=== PATIENT | male | born 1940 | race Caucasian/White ===

== ENCOUNTER 2020-01-02 18:28 | Emergency (ER) | payer MEDICARE, SELFPAY ==
[2020-01-02 18:38] VITALS: BP 149/85; PULSE 69; RESP 16; O2SAT 98
--- NOTE | 2020-01-02 19:27 | ED.URI ---
HPI - URI/Sore Throat General Chief Complaint: Upper Respiratory Infection Stated Complaint: Congestion Source: patient and family Mode of arrival: ambulatory Limitations: no limitations History of Present Illness HPI Narrative: Patient is an 79-year-old male who presents complaining of sinus pressure, cough, congestion x1+ weeks. Patient reports similar symptoms in the past month which have resolved, symptoms returned this past week worsening over the past few days. He denies chest pain. He denies shortness of breath. He denies headache or all other complaints. MD elicited complaint: cough, nasal congestion and sinus pain Related Data Home Medications Medication Instructions Recorded Confirmed aspirin 81 mg PO DAILY 11/05/19 11/05/19 glucosamine-chondroitin 30 ml PO DAILY 11/05/19 11/05/19 lisinopril 10 mg PO DAILY 11/05/19 11/05/19 metformin 500 mg PO DAILY 11/05/19 11/05/19 metoprolol tartrate 25 mg PO DAILY 11/05/19 11/05/19 rivaroxaban [Xarelto] 20 mg PO DAILY 11/05/19 11/05/19 finasteride 5 mg tablet 5 mg PO DAILY 11/16/19 11/16/19 tamsulosin mg PO 01/02/20 Allergies Allergy/AdvReac Type Severity Reaction Status Date / Time morphine Allergy Intermediate hallucinati Verified 11/16/19 15:14 ons Review of Systems Review of Systems: Narrative: CONSTITUTIONAL: Denies fever, chills, or sweats. EYES: Denies visual changes, redness, or discharge. ENT: Reports congestion and sinus pressure. CARDIOVASCULAR: Denies chest pain, palpitations, or edema. RESPIRATORY: Reports cough, denies dyspnea. GASTROINTESTINAL: Denies abdominal pain, nausea, vomiting, or diarrhea. GENITOURINARY: Denies dysuria or hematuria. SKIN: Denies rash or itching. MUSCULOSKELETAL: Denies back pain, joint pain, or myalgia. NEUROLOGIC: Denies headache, numbness, dizziness, or weakness. PSYCHIATRIC: Denies anxiety or depression. [facility] Family History Family History Mother Family history of glaucoma Family history of elevated blood lipids Hypertension Carcinoma of colon Sibling Hypertension Family history of elevated blood lipids Father Family history of elevated blood lipids Hypertension Other Family history of cardiovascular disease Family history of malignant neoplasm Social History Social History Smoking status: Former smoker Smoking end date: 10/27/07 Alcohol intake: current Exam Narrative: Exam Narrative: GENERAL: Well-appearing, well-nourished, and in no acute distress. HEAD: Normocephalic, atraumatic. EYES: EOMI. No redness or drainage. Conjunctiva are normal. ENT: Mucous membranes pink and moist. Nares clear. No rhinorrhea. TMs normal bilaterally. Throat normal. Uvula midline. Maxillary sinus tenderness with palpation NECK: AROM. Supple. No lymphadenopathy. CHEST: No respiratory distress. Clear to auscultation. HEART: Regular rate and rhythm. No murmur appreciated. Normal peripheral pulses. GI: Soft, nontender without rebound, or guarding. No distention. Bowel sounds normal in all quadrants. MUSCULOSKELETAL: No bony tenderness. EXTREMITIES: Normal range of motion. No edema. SKIN: Warm, dry, no rash. NEURO: No focal deficits. Alert and oriented x3. Gait steady. PSYCH: Normal affect. No signs of depression or anxiety. Course Vital Signs Vital signs: Vital Signs Pulse Rate 69 01/02/20 18:38 Respiratory Rate 16 01/02/20 18:38 Blood Pressure 149/85 H 01/02/20 18:38 Pulse Oximetry 98 01/02/20 18:38 Pulse Rate 69 01/02/20 18:38 Respiratory Rate 16 01/02/20 18:38 Blood Pressure 149/85 H 01/02/20 18:38 Pulse Oximetry 98 01/02/20 18:38 MDM - URI/Sore Throat MDM Narrative Medical decision making narrative: Patient most likely has sinusitis. Patient to be treated with antibiotics at this time due to length of illness as well as return of illness. Lauren
== END 2020-01-02 19:52 | disposition home or self-care (01) ==
PROVIDERS: Emergency Provider Nurse Practitioner; PCP Family Medicine
DX: J01.90 Acute sinusitis, unspecified (principal); Z87.891 Personal history of nicotine dependence
CPT/HCPCS: 99213; G0463

== ENCOUNTER 2020-02-16 16:39 | Outpatient (CLI) | payer MEDICARE, SELFPAY | END 2020-02-16 16:40 | disposition home or self-care (01) | PROVIDERS: PCP Family Medicine; Visit Provider Nurse Practitioner Adult Health | DX: R31.0 Gross hematuria (principal) | CPT/HCPCS: 87086 ==

== ENCOUNTER 2020-04-04 09:19 | Outpatient (CLI) | payer MEDICARE, SELFPAY ==
[2020-04-04 09:58] LABS: Basophils Percent Auto 0.5 % (0.2-1.2); Eosinophils Absolute Auto 0.1 K/mm3 (0-0.3); Eosinophils Percent Auto 2.3 % (0-4.4); Hematocrit 49.1 % (42.0-52.0); Hemoglobin 16.5 g/dL (14.0-18.0); Immature Granulocyte Absolute 0.01 K/mm3 (0.00-0.031); Immature Granulocyte Percent A 0.2 % (0-0.5); Lymphocytes Absolute Auto 1.15 K/mm3 (0.9-3.2); Lymphocytes Percent Auto 20.5 % (18.3-44.2); Mean Corpuscular HGB Conc 33.6 g/dl (32-36); Mean Corpuscular Volume 92.3 fl (80-100); Mean Platelet Volume 11.8 fl (7.4-10.4); Monocytes Absolute Auto 0.4 K/mm3 (0.1-0.6); Monocytes Percent Auto 7.8 % (2.6-8.5); Neutrophils Absolute Auto 3.9 K/mm3 (1.3-6.7); Neutrophils Percent Auto 68.7 % (45.5-73.1); Platelet Count Result 179 k/mm3 (150-375); Red Blood Count 5.32 M/mm3 (4.6-6.20); Red Cell Distribution Width 12.8 % (11.5-14.5); White Blood Count 5.6 K/mm3 (4.5-10.0)
[2020-04-04 10:09] LABS: Hemoglobin A1C 6.7 % (<5.7)
[2020-04-04 10:10] LABS: Alanine Aminotransferase 23 U/L (4-50); Alkaline Phosphatase 50 U/L (38-126); Aspartate Amino Transferase 28 U/L (17-59); Bilirubin,Total 1.5 mg/dL (0.2-1.3); Blood Urea Nitrogen 17 mg/dL (9-20); Calcium 8.5 mg/dL (8.4-10.2); Carbon Dioxide 28 mmol/L (22-30); Chloride 104 mmol/L (98-107); Cholesterol 103 mg/dL (0-200); Estimated Glomerular Filt Rate > 60; Glucose 120 mg/dL (75-110); HDL Direct 32 mg/dL; Potassium 3.9 mmol/L (3.4-5.0); Sodium 139 mmol/L (137-145); Triglycerides 83 mg/dL (<150)
[2020-04-04 10:22] LABS: LDL Cholesterol Direct 60 mg/dL
[2020-04-04 10:41] LABS: Prostate Specific Antigen 0.9 ng/mL (< OR = 4.0)
== END 2020-04-04 09:20 | disposition home or self-care (01) ==
PROVIDERS: PCP Family Medicine; Referring Provider Internal Medicine Cardiovascular Disease; Visit Provider Physician Assistant
DX: E11.65 Type 2 diabetes mellitus with hyperglycemia (principal); E78.2 Mixed hyperlipidemia; E78.5 Hyperlipidemia, unspecified; I10 Essential (primary) hypertension; Z12.5 Encounter for screening for malignant neoplasm of prostate
CPT/HCPCS: 36415; 80053; 80061; 83036; 84153; 84443; 85025; G0103

== ENCOUNTER 2020-05-02 07:12 | Outpatient (CLI) | payer MEDICARE, SELFPAY ==
[2020-05-02 19:16] LABS: SARS-CoV-2 RNA PCR Negative
== END 2020-05-02 07:13 | disposition home or self-care (01) ==
LOC: ANHCOVIDDT 07:13
PROVIDERS: PCP Family Medicine; Visit Provider Internal Medicine Cardiovascular Disease
DX: Z01.818 Encounter for other preprocedural examination (principal); Z11.59 Encounter for screening for other viral diseases
CPT/HCPCS: 87635; C9803; U0003

== ENCOUNTER 2020-05-04 05:43 | Day surgery (SDC) | payer MEDICARE, SELFPAY ==
[2020-05-03 12:20] VITALS: BMI 27.4
[2020-05-04] VITALS (10 sets, daily range): BP systolic 133–159; BP diastolic 75–102; PULSE 54–74; RESP 14–18; TEMP 36.6; O2SAT 95–99
--- NOTE | 2020-05-04 10:00 | ECG_ITS ---
Measurements Intervals [place] Rate: 75 P: [place]: 0 QRS: 20 QRSD: 153 T: 1 QT: 433 QTc: 485 Interpretive Statements ATRIAL FIBRILLATION RIGHT BUNDLE BRANCH BLOCK ABNORMAL ECG Electronically Signed On 05-04-2020 11:12:24 CDT by Lionel Chavis D.O.
[2020-05-04 10:53] LABS: Blood Urea Nitrogen 18 mg/dL (9-20); Calcium 8.8 mg/dL (8.4-10.2); Carbon Dioxide 25 mmol/L (22-30); Chloride 103 mmol/L (98-107); Estimated CRCL calculation 69 ml/min; Estimated Glomerular Filt Rate > 60; Glucose 139 mg/dL (75-110); Magnesium 1.8 mg/dL (1.6-2.3); Potassium 4.1 mmol/L (3.4-5.0); Sodium 136 mmol/L (137-145)
--- NOTE | 2020-05-04 11:05 | WPDHPUPDATE1 ---
History and Physical Update Update Date/Time: 05/04/20 11:05 History and Physical has been reviewed, including an updated exam of the patient. There are NO changes in the patient's condition. Risks, benefits, and alternatives have been discussed and questions answered. Patient agrees to proceed with procedure.
--- NOTE | 2020-05-04 11:07 | WPDMODSED ---
Moderate Sedation Note-Pt Data Patient Data Diagnosis: Atrial fibrillation Present Complaint: None Procedure to be performed/Plan: Elective electrical cardioversion Allergies Allergy/AdvReac Type Severity Reaction Status Date / Time morphine Allergy Intermediate hallucinati Verified 11/16/19 15:14 ons Home Medications Medication Instructions Recorded Confirmed Type simvastatin 20 mg tablet 20 mg PO DAILY #90 tablet 10/25/19 05/03/20 Rx aspirin 81 mg PO DAILY 11/05/19 05/03/20 History glucosamine-chondroitin 30 ml PO DAILY 11/05/19 05/03/20 History lisinopril 10 mg PO DAILY 11/05/19 05/03/20 History rivaroxaban [Xarelto] 20 mg PO DAILY 11/05/19 05/03/20 History finasteride 5 mg tablet 5 mg PO DAILY 11/16/19 05/03/20 History metoprolol tartrate 25 mg tablet 12.5 mg PO BID #60 tablet 03/06/20 05/03/20 Rx omeprazole 20 mg capsule,delayed 20 mg PO DAILY #90 cap 03/10/20 05/03/20 Rx release alprazolam 0.5 mg tablet 0.5 mg PO DAILY #90 tablet 04/04/20 05/03/20 Rx metformin 500 mg tablet 500 mg PO BID #180 tablet 04/04/20 05/03/20 Rx Current Medications: Active Medications Sodium Chloride (Normal Saline Iv) 1,000 mls @ 30 mls/hr IV CONT .Q24H RICKY Sedation/Anesthesia: No previous sedation/anesthesia problems (including family history). [facility] Past Medical History Medical History Anticoagulant long-term use Atherosclerotic heart disease of [place] coronary artery with other forms of angina pectoris Essential (primary) hypertension Mixed hyperlipidemia Paroxysmal atrial fibrillation Type 2 diabetes mellitus with hyperglycemia Family History Family History Mother Family history of glaucoma Family history of elevated blood lipids Hypertension Carcinoma of colon Sibling Hypertension Family history of elevated blood lipids Father Family history of elevated blood lipids Hypertension Other Family history of cardiovascular disease Family history of malignant neoplasm Social History Social History Smoking status: Former smoker Tobacco type: cigarettes Smoking end date: 10/27/1956 Alcohol intake: current Drinks per week: 4 Alcohol use details: 3-4 beers per week Substance use: never Substance use type: does not use Living arrangements: with family Gender identity (if verbalized by the patient): Male Spiritual care concerns: No Mod Sed Physical Exam Physical Exam Pre Procedural Exam: Normal: Appearance, Eyes, Ears, Nose, Neck (Supple, normal range of motion), Throat (Posterior hypopharynx clear, nonerythematous), Airway (Normal anatomy, no obstruction), Lungs (Clear to auscultation bilaterally), Heart Size, Neuro Exam, Abdomen, Liver, Kidneys, Extremities and Skin and Variation: Heart Rate and Heart Rhythm (Irregular irregular rate and rhythm) Hours since solid foods: 12 Hours since liquid intake: 12 Internal Medicine - PN: Obj Da Vital Signs Vital Signs: Vital Signs - 24 hr 05/04/20 10:43 Temperature 36.6 C Pulse Rate 74 Respiratory Rate 16 Blood Pressure 138/88 Pulse Oximetry 99 Meds/Results Medications: Active Medications Generic Name Dose Route Start Last Admin Trade Name Freq PRN Reason Stop Dose Admin Sodium Chloride 1,000 mls @ 30 mls/hr 05/04/20 06:05 Normal Saline Iv IV CONT .Q24H RICKY Labs CBC & Chem 7: 05/04/20 10:34 Labs: Laboratory Results - last 24 hr 05/04/20 10:34 Sodium 136 L Potassium 4.1 Chloride 103 Carbon Dioxide 25 BUN 18 Creatinine 0.90 Estim Creat Clear Calc 69 Estimated GFR > 60 Glucose 139 H Calcium 8.8 Magnesium 1.8 ASA Classification/Sedation ASA Classification/Sedation ASA Class: III Emergent: No Risks: Risks, benefits and alternatives explained and patient/family accepted plan for sedation. Patient
--- NOTE | 2020-05-04 11:08 | P.PCNCVR_ITS ---
Cardioversion Cardioversion Date of procedure: 05/04/20 Procedure: Elective electrical cardioversion Pre-op diagnosis: Atrial fibrillation Post-op diagnosis: same Indications: Atrial fibrillation Description of procedure: Brief history present illness: Patient is a pleasant 80-year-old male history coronary disease, paroxysmal atrial fibrillation which has been more persistent of late, history of drug- eluting stent to mid LAD, diabetes mellitus, hypertension, dyslipidemia, chronic anticoagulation with Xarelto with progressive fatigue and exertional dyspnea and EKG changes prompted concern for progression of obstructive CAD. As such, Lexiscan stress test was performed which revealed normal perfusion and ejection fraction of 60%., patient is referred for electrical cardioversion in attempt restore sinus rhythm in light of his symptoms. Procedure in detail: After verbal and written informed consent was obtained the patient risks, sravan efits, and alternatives explained in detail the patient agreed to proceed with the plan of care as outlined above. Patient was evaluated at bedside in the [facility] procedure room. On examination, neck was supple with normal range of motion, no restrictions to opening of the oral cavity, jaw angle and posterior hypopharynx was clear. Lungs were clear to auscultation. Patient was placed in appropriate 30 to 45 degree angle in a supine position. Patient was monitored throughout the study with telemetry, oxygen saturation, end-tidal CO2 monitoring, blood pressure, heart rate, and respirations. Anterior and posterior defibrillator pads placed in the appropriate positions. After confirmation of adequate sedation electrical cardioversion was carried out without complication. Patient tolerated the procedure well without difficulty. Sedation: Moderate Sedation/Anesthesia administration: Patient denied previous intolerance or complications with anesthesia/sedation. Please see sedation note for documentation of the pre-procedure physical examination. As noted above, after adequate local anesthesia of the posterior hypopharynx was achieved, a total of 3mg intravenous Versed and a total of 75mcg intravenous Fentanyl in multiple divided doses was utilized for moderate sedation. Sedation start time was 1141 and end time was 1150 for a total of 9 minutes [id number] intra-procedure time. Sedation was administered by a qualified observer Sravan Cook RN under my supervision with intra-procedure [id number] observation and management throughout the entirety of the procedure. There were no other issues or complications and patient tolerated the procedure well and sedation protocol well and I was present for the entirety. Findings: Elective electrical cardioversion: After confirmation of adequate sedation and persistence of atrial fibrillation, 200 joules synched biphasic energy x1 was delivered with immediate episcopal of sinus rhythm. Twelve lead EKG was obtained postprocedure confirming sinus rhythm, RBBB and first degree AV block. Complications: None Recommendations: Continue current medical therapy without interruption of systemic anticoagulation for a minimum of 30 days post cardioversion period
--- NOTE | 2020-05-04 11:54 | ECG_ITS ---
Measurements Intervals [place] Rate: 67 P: 62 [place]: 282 QRS: 20 QRSD: 162 T: 14 QT: 469 QTc: 497 Interpretive Statements SINUS RHYTHM WITH FIRST DEGREE AV BLOCK RIGHT BUNDLE BRANCH BLOCK ABNORMAL ECG Electronically Signed On 05-04-2020 13:46:02 CDT by Lionel Chavis D.O.
--- NOTE | 2020-05-04 14:20 | SUR.PHASEII ---
1320-pt given D/C orders and instructions. Questions answered and verbalized understanding. AOx4. PIV removed intact. Taken via wheelchair to waiting vehicle. No distress noted or verbalized at time of D/C.
== END 2020-05-04 13:20 | disposition home or self-care (01) ==
PROVIDERS: PCP Family Medicine; Visit Provider Internal Medicine Cardiovascular Disease
PROC: 5A2204Z Restoration of Cardiac Rhythm, Single (ICD-10-PCS; principal; 2020-05-04 11:30)
PROC: 5A2204Z Restoration of Cardiac Rhythm, Single (ICD-10-PCS; 2020-05-04 11:30)
DX: I48.0 Paroxysmal atrial fibrillation (principal); I45.10 Unspecified right bundle-branch block; I44.0 Atrioventricular block, first degree; I10 Essential (primary) hypertension; I25.10 Atherosclerotic heart disease of native coronary artery without angina pectoris; E78.2 Mixed hyperlipidemia; E11.9 Type 2 diabetes mellitus without complications; Z95.5 Presence of coronary angioplasty implant and graft; Z79.01 Long term (current) use of anticoagulants; Z79.82 Long term (current) use of aspirin; Z79.84 Long term (current) use of oral hypoglycemic drugs
CPT/HCPCS: 36415; 80048; 83735; 92960; 93005; J2250; J3010; J7040

== ENCOUNTER 2020-07-12 08:17 | Outpatient (CLI) | payer MEDICARE, SELFPAY ==
[2020-07-12 09:13] LABS: Hemoglobin A1C 6.5 % (<5.7)
[2020-07-12 09:18] LABS: Alanine Aminotransferase 29 U/L (4-50); Albumin Level 3.8 g/dL (3.5-5.1); Alkaline Phosphatase 42 U/L (38-126); Anion Gap 4 mmol/L (8-16); Aspartate Amino Transferase 29 U/L (17-59); Bilirubin,Total 1.4 mg/dL (0.2-1.3); Blood Urea Nitrogen 17 mg/dL (9-20); Calcium 8.6 mg/dL (8.4-10.2); Carbon Dioxide 30 mmol/L (22-30); Chloride 103 mmol/L (98-107); Cholesterol 115 mg/dL (0-200); Estimated Glomerular Filt Rate > 60; Glucose 135 mg/dL (75-110); HDL Direct 37 mg/dL; Potassium 4.1 mmol/L (3.4-5.0); Sodium 137 mmol/L (137-145); Triglycerides 64 mg/dL (<150)
[2020-07-12 09:29] LABS: LDL Cholesterol Direct 66 mg/dL
== END 2020-07-12 08:18 | disposition home or self-care (01) ==
PROVIDERS: PCP Family Medicine; Visit Provider Physician Assistant
DX: E11.65 Type 2 diabetes mellitus with hyperglycemia (principal); E78.2 Mixed hyperlipidemia; I10 Essential (primary) hypertension; Z79.01 Long term (current) use of anticoagulants
CPT/HCPCS: 36415; 80053; 80061; 83036

== ENCOUNTER 2020-11-06 10:02 | Outpatient (CLI) | payer MEDICARE, SELFPAY ==
[2020-11-06 10:56] LABS: Alanine Aminotransferase 19 U/L (4-50); Albumin Level 3.8 g/dL (3.5-5.1); Alkaline Phosphatase 53 U/L (38-126); Anion Gap 3 mmol/L (8-16); Aspartate Amino Transferase 27 U/L (17-59); Bilirubin,Total 1.3 mg/dL (0.2-1.3); Blood Urea Nitrogen 11 mg/dL (9-20); Calcium 8.5 mg/dL (8.4-10.2); Carbon Dioxide 33 mmol/L (22-30); Chloride 104 mmol/L (98-107); Cholesterol 121 mg/dL (0-200); Estimated Glomerular Filt Rate > 60; Glucose 138 mg/dL (75-110); HDL Direct 38 mg/dL; Potassium 3.8 mmol/L (3.4-5.0); Sodium 140 mmol/L (137-145); Triglycerides 102 mg/dL (<150)
[2020-11-06 11:01] LABS: Hemoglobin A1C 6.8 % (<5.7)
[2020-11-06 11:08] LABS: LDL Cholesterol Direct 64 mg/dL
== END 2020-11-06 10:03 | disposition home or self-care (01) ==
PROVIDERS: PCP Family Medicine; Referring Provider Internal Medicine Cardiovascular Disease; Visit Provider Physician Assistant
DX: E78.2 Mixed hyperlipidemia (principal); E11.65 Type 2 diabetes mellitus with hyperglycemia
CPT/HCPCS: 36415; 80053; 80061; 83036

== ENCOUNTER 2020-11-25 00:45 | Outpatient (CLI) | payer MEDICARE, SELFPAY ==
[2020-11-25 18:47] LABS: SARS-CoV-2 RNA PCR Negative
== END 2020-11-25 00:46 | disposition home or self-care (01) ==
LOC: ANHCOVIDDT 00:45
PROVIDERS: PCP Family Medicine; Visit Provider Internal Medicine Cardiovascular Disease
DX: Z01.812 Encounter for preprocedural laboratory examination (principal); Z20.822 Contact with and (suspected) exposure to COVID-19
CPT/HCPCS: C9803; U0003; U0005

== ENCOUNTER 2020-11-28 01:32 | Day surgery (SDC) | payer MEDICARE, SELFPAY ==
[2020-11-27 15:00] VITALS: BMI 27.3
[2020-11-28] VITALS (9 sets, daily range): BP systolic 126–148; BP diastolic 75–92; PULSE 61–71; RESP 11–19; TEMP 36.7; O2SAT 95–100; BMI 27.5
--- NOTE | 2020-11-28 10:13 | ECG_ITS ---
Measurements Intervals [place] Rate: 65 P: [place]: 0 QRS: 27 QRSD: 161 T: -2 QT: 472 QTc: 491 Interpretive Statements ATRIAL FIBRILLATION RIGHT BUNDLE BRANCH BLOCK ABNORMAL ECG Electronically Signed On 11-28-2020 10:34:11 [employer]EL SELECTOR by Lionel Chavis D.O.
--- NOTE | 2020-11-28 10:33 | WPDHPUPDATE1 ---
History and Physical Update Update Date/Time: 11/28/20 10:33 History and Physical has been reviewed, including an updated exam of the patient. There are NO changes in the patient's condition. Risks, benefits, and alternatives have been discussed and questions answered. Patient agrees to proceed with procedure.
--- NOTE | 2020-11-28 10:33 | WPDMODSED ---
Moderate Sedation Note-Pt Data Patient Data Diagnosis: Atrial fibrillation Present Complaint: None History and physical update: Patient is a very pleasant 80-year-old male with a history of CAD status post drug-eluting stent 2012, paroxysmal atrial fibrillation, diabetes mellitus, hypertension, dyslipidemia on chronic anticoagulation who was recently seen by electrophysiology started on amiodarone with plan cardioversion 3 weeks later as he presents today in attempt restore sinus rhythm. Patient has been on anticoagulation without interruption for least 4 weeks, therefore, GADIEL guidance is not necessary. Impression/plan of care: Persistent atrial fibrillation-cardioversion on amiodarone to restore sinus rhythm CAD Hypertension Diabetes mellitus Chronic anticoagulation Recommendation to follow based upon response to cardioversion. Continue anticoagulation without interruption. Procedure to be performed/Plan: Elective electrical cardioversion Allergies Allergy/AdvReac Type Severity Reaction Status Date / Time morphine Allergy Intermediate Other Verified 11/27/20 15:12 Home Medications Medication Instructions Recorded Confirmed Type Xarelto 20 mg PO DAILY 11/05/19 11/27/20 History aspirin 81 mg PO DAILY 11/05/19 11/27/20 History glucosamine-chondroitin 30 ml PO DAILY 11/05/19 11/27/20 History finasteride 5 mg tablet 5 mg PO DAILY 11/16/19 11/27/20 History metformin 500 mg tablet 500 mg PO BID #180 tablet 04/04/20 11/27/20 Rx lisinopril 10 mg tablet 10 mg PO DAILY #90 tablet 05/09/20 11/27/20 Rx omeprazole 20 mg capsule,delayed 20 mg PO DAILY #90 cap 08/30/20 11/27/20 Rx release alprazolam 0.5 mg tablet 0.5 mg PO DAILY #90 tablet 10/06/20 11/27/20 Rx simvastatin 20 mg tablet See Rx Instructions .ROUTE 10/23/20 11/27/20 Rx .COMPLEX #90 tablet amiodarone [Pacerone] 400 mg PO DAILY 11/27/20 11/27/20 History Current Medications: Active Medications Sodium Chloride (Normal Saline Iv) 1,000 mls @ 30 mls/hr IV CONT .Q24H RICKY Sedation/Anesthesia: No previous sedation/anesthesia problems (including family history). [facility] Past Medical History Medical History Anticoagulant long-term use Atherosclerotic heart disease of [place] coronary artery with other forms of angina pectoris Essential (primary) hypertension Mixed hyperlipidemia Paroxysmal atrial fibrillation Type 2 diabetes mellitus with hyperglycemia Family History Family History Mother Family history of glaucoma Family history of elevated blood lipids Hypertension Carcinoma of colon Sibling Hypertension Family history of elevated blood lipids Father Family history of elevated blood lipids Hypertension Other Family history of cardiovascular disease Family history of malignant neoplasm Social History Social History Smoking status: Former smoker Tobacco type: cigarettes Smoking end date: 10/27/1956 Additional smoking assessment comments: Pt. quit 60 years ago. Alcohol intake: never Drinks per week: 6 Substance use: never Substance use type: does not use Living arrangements: with family Gender identity (if verbalized by the patient): Male Spiritual care concerns: No Mod Sed Physical Exam Physical Exam Pre Procedural Exam: Normal: Appearance, Eyes, Ears, Nose, Neck (Supple, normal range of motion), Throat (Posterior hypopharynx clear, nonerythematous), Airway (No obstruction, normal anatomy), Lungs (Clear to auscultation bilaterally), Heart Size, Heart Rate, Neuro Exam, Abdomen, Liver, Extremities and Skin and Variation: Heart Rhythm (Irregularly irregular) Hours since solid foods: 12 Hours since liquid intake: 12 Internal Medicine - PN: Obj Da Meds/Results Medications: Active Medications Generic Name Dose Route Start Last Admin Trade Name Marcos
--- NOTE | 2020-11-28 10:39 | P.PCNCVR_ITS ---
Cardioversion Cardioversion Date of procedure: 11/28/20 Pre-op diagnosis: Atrial fibrillation Post-op diagnosis: same Indications: Atrial fibrillation Description of procedure: Brief history present illness: Patient is a pleasant 80-year-old male with a history of CAD, diabetes mellitus, hypertension, dyslipidemia, history of more persistent atrial fibrillation referred for cardioversion on amiodarone to restore sinus rhythm. GADIEL guidance is not needed as he has been anticoagulated for greater than 4 weeks without interruption. Procedure in detail: After verbal and written informed consent was obtained the patient risks, benefits, and alternatives explained in detail the patient agreed to proceed with the plan of care as outlined above. Patient was evaluated at bedside in the [facility] procedure room. On examination, neck was supple with normal range of motion, no restrictions to opening of the oral cavity, jaw angle and posterior hypopharynx was clear. Lungs were clear to auscultation. Patient was placed in appropriate 30 to 45 degree angle in a supine position. Patient was monitored throughout the study with telemetry, oxygen saturation, end-tidal CO2 monitoring, blood pressure, heart rate, and respirations. Anterior and posterior defibrillator pads placed in the appropriate positions. After confirmation of adequate sedation electrical cardioversion was carried out without complication. Patient tolerated the procedure well without difficulty. Sedation: Moderate Sedation/Anesthesia administration: Patient denied previous intolerance or complications with anesthesia/sedation. Please see sedation note for documentation of the pre-procedure physical examination. A total of 4mg intravenous Versed and a total of 75 mcg intravenous Fentanyl in multiple divided doses was utilized for moderate sedation. Sedation start time was 1122 and end time was 1132 for a total of 10 minutes [id number] intra-procedure time. Sedation was administered by a qualified observer Lalitha Perez RN under my supervision with intra-procedure [id number] observation and management throughout the entirety of the procedure. There were no other issues or complications and patient tolerated the procedure well and sedation protocol well and I was present for the entirety. Findings: Elective electrical cardioversion: After confirmation of adequate sedation and persistence of atrial fibrillation, 200 joules synched biphasic energy x1 was delivered with immediate zoroastrian of sinus rhythm. Twelve lead EKG was obtained postprocedure confirming sinus rhythm. Complications: None Conclusion: Successful zoroastrian sinus rhythm with 200J synched biphasic energy x1. Continue systemic anticoagulation without interruption. Recommendations: Reduce Amiodarone to 200mg daily due to likely side effects he mentions such as fatigue, loss of appetite, constipation, and dizziness. Discussed with Dr. Curiel (EP) who is in agreement with plan of care. Explained all of this to his over the phone as well. All questions answered to her satisfaction.
[2020-11-28 10:46] LABS: Anion Gap 6 mmol/L (8-16); Blood Urea Nitrogen 16 mg/dL (9-20); Calcium 8.2 mg/dL (8.4-10.2); Carbon Dioxide 27 mmol/L (22-30); Chloride 106 mmol/L (98-107); Estimated CRCL calculation 63 ml/min; Estimated Glomerular Filt Rate > 60; Glucose 123 mg/dL (75-110); Magnesium 1.8 mg/dL (1.6-2.3); Potassium 4.1 mmol/L (3.4-5.0); Sodium 139 mmol/L (137-145)
--- NOTE | 2020-11-28 11:32 | ECG_ITS ---
Measurements Intervals [place] Rate: 63 P: 63 [place]: 302 QRS: 23 QRSD: 168 T: -2 QT: 507 QTc: 520 Interpretive Statements SINUS RHYTHM WITH FIRST DEGREE AV BLOCK VENTRICULAR PREMATURE COMPLEX RIGHT BUNDLE BRANCH BLOCK ABNORMAL ECG Electronically Signed On 11-28-2020 11:38:09 EMB[employer]DED SOFTWARE DESIGN ENGINEER by Lionel Chavis D.O.
--- NOTE | 2020-11-28 12:58 | SUR.PHASEII ---
1240 D/C instructions reviewed with patient, questions asked and answered. IV d/c'd, cath intact;pressure applied. Pt transported to via wheelchair to [facility] where his picked him up and drove him home in a private vehicle.
== END 2020-11-28 12:45 | disposition home or self-care (01) ==
PROVIDERS: PCP Family Medicine; Visit Provider Internal Medicine Cardiovascular Disease
PROC: 5A2204Z Restoration of Cardiac Rhythm, Single (ICD-10-PCS; principal; 2020-11-28 11:30)
DX: I48.19 Other persistent atrial fibrillation (principal); I10 Essential (primary) hypertension; I25.10 Atherosclerotic heart disease of native coronary artery without angina pectoris; E78.5 Hyperlipidemia, unspecified; E11.9 Type 2 diabetes mellitus without complications; Z79.01 Long term (current) use of anticoagulants; Z95.5 Presence of coronary angioplasty implant and graft; Z79.84 Long term (current) use of oral hypoglycemic drugs; Z87.891 Personal history of nicotine dependence
CPT/HCPCS: 36415; 80048; 83735; 92960; 93005; J2250; J3010; J7030

== ENCOUNTER 2020-11-30 11:35 | Outpatient (CLI) | payer MEDICARE, SELFPAY ==
--- NOTE | ~2020-11-30 | US_ITS ---
EXAMINATION: US pelvic limited DATE: 11/30/2020 10:41 INDICATION: Retention of urine, unspecified. Urinary frequency. TECHNIQUE: Multiple grayscale and Doppler ultrasound images of the pelvis were obtained. COMPARISON: CT abdomen and pelvis 09/24/2019 FINDINGS: The bladder is not well distended, which decreases sensitivity. The bladder volume is 98 mL prevoid and 11 mm postvoid. IMPRESSION: 1. Normal post-void urine volume. Reviewed, dictated and finalized at location A. [facility]
[2020-11-30 12:02] LABS: Add Urine Microscopic? NO; Appearance Urine Clear (Clear); Bilirubin Urine Negative (Negative); Blood Urine Negative (Negative); Color Urine Yellow (Yellow); Glucose Urine UA Negative (Negative); Ketones Urine Negative (Negative); Leukocyte Esterase Ur Negative LEU/UL (Negative); Nitrate Urine Negative (Negative); Protein Urine Negative (Negative); Specific Grav Ur 1.013 (1.001-1.035); Urobilinogen Urine Negative mg/dL (<2.0)
== END 2020-11-30 11:36 | disposition home or self-care (01) ==
PROVIDERS: PCP Internal Medicine; Visit Provider Internal Medicine
DX: R33.9 Retention of urine, unspecified (principal)
CPT/HCPCS: 76857; 81003

== ENCOUNTER 2020-12-14 16:09 | Emergency (ER) | payer MEDICARE, SELFPAY ==
--- NOTE | ~2020-12-14 | XR_ITS ---
EXAMINATION: XR tibia fibula RT 2V EXAM DATE: 12/14/2020 16:56 INDICATION: Has lump rt anterior low leg denies injury. TECHNIQUE: Right tibia/fibula frontal and lateral projections obtained and reviewed. Correlation is m brian to right knee examination 08/08/2018. FINDINGS: Right tibial and fibular shafts unremarkable. There are no acute fractures or dislocations identified. There is no subcutaneous gas. The soft tissue is unremarkable, no soft tissue calcific ations identified. Possible developing meniscal chondrocalcinosis. 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 There are no radiopaque foreign bodies. IMPRESSION: Arthritis. Unremarkable soft tissues. If soft tissue lump persists or grows, consider ult rasound. Reviewed, dictated and finalized at location A. LUMBER GRADER IMPRESSION: Arthritis. Unremarkable soft tissues. If soft tissue lump persists or grows, consider ultrasound.
--- NOTE | 2020-12-14 16:18 | ED.GENADULT ---
HPI - General Adult General Chief complaint: Skin/Abscess/Foreign Body Stated complaint: lump on right leg Time Seen by Provider: 12/14/20 16:18 Source: patient Mode of arrival: ambulatory Limitations: no limitations History of Present Illness HPI narrative: 80-year-old male patient presents to the [facility] with complaints of a lump to the right distal fem-tib area that he noticed yesterday. Patient states he was out shoveling snow yesterday but denies any specific injury that he can remember. Patient states he has been putting ice on it but denies taking anything for pain. Patient states he is able to walk on it with a steady gait. Patient states it is sore to touch and states he notices that it is swollen. Patient is on Xarelto currently. Related Data Home Medications Medication Instructions Recorded Confirmed Xarelto 20 mg PO DAILY 11/05/19 11/30/20 aspirin 81 mg PO DAILY 11/05/19 11/30/20 glucosamine-chondroitin 30 ml PO DAILY 11/05/19 11/30/20 finasteride 5 mg tablet 5 mg PO DAILY 11/16/19 11/30/20 Allergies Allergy/AdvReac Type Severity Reaction Status Date / Time morphine Allergy Intermediate constipatio Verified 11/30/20 08:10 n Review of Systems Review of Systems: Narrative: CONSTITUTIONAL: Denies fever, chills, or sweats. EYES: Denies visual changes, redness, or discharge. ENT: Denies rhinorrhea, congestion, sore throat, or otalgia. CARDIOVASCULAR: Denies chest pain, palpitations, or edema. RESPIRATORY: Denies cough or dyspnea. GASTROINTESTINAL: Denies abdominal pain, nausea, vomiting, or diarrhea. GENITOURINARY: Denies dysuria or hematuria. SKIN: Denies rash or itching. MUSCULOSKELETAL: Denies back pain, joint pain, or myalgia. Positive lump to the right lower tib-fib since yesterday NEUROLOGIC: Denies headache, numbness, or weakness. PSYCHIATRIC: Denies anxiety or depression. [facility] Past Medical History Medical History (Updated 12/14/20 @ 17:05 by RICK Koch) Anticoagulant long-term use Arthritis Atherosclerotic heart disease of [place] coronary artery with other forms of angina pectoris Atrial fibrillation Atrial flutter Essential (primary) hypertension Mixed hyperlipidemia Osteoporosis Paroxysmal atrial fibrillation Type 2 diabetes mellitus with hyperglycemia Surgical History Surgical History H/O hernia repair History of cholecystectomy History of parathyroid surgery History of prostate surgery Family History Family History Mother Family history of glaucoma Family history of elevated blood lipids Hypertension Carcinoma of colon Sibling Hypertension Family history of elevated blood lipids Father Family history of elevated blood lipids Hypertension Other Family history of cardiovascular disease Family history of malignant neoplasm Social History Social History Smoking status: Former smoker Tobacco type: cigarettes Smoking end date: 10/27/1956 Additional smoking assessment comments: Pt. quit 60 years ago. Alcohol intake: current Drinks per week: 0 Substance use: never Substance use type: does not use Gender identity (if verbalized by the patient): Male Spiritual care concerns: No Comments At the time of my signature I agree with nursing past medical history, surgical, social, and family history. There is no relevant family history pertinent to the presenting complaint. Exam Narrative: Exam Narrative: GENERAL: Well-appearing, well-nourished, and in no acute distress. HEAD: Normocephalic, atraumatic. EYES: PERRLA and EOMI. ENT: Nares clear, no rhinorrhea or epistaxis. Mucous membranes moist. NECK: Supple. No lymphadenopathy CHEST: Clear to auscultation. No respiratory distress. HEART: Regular rate and rhythm. No murmur heard. Normal peripheral pulses. ABDOMEN: Soft, no
[2020-12-14 16:30] VITALS: BP 177/90; PULSE 71; RESP 16; TEMP 37.3; O2SAT 99
== END 2020-12-14 17:10 | disposition home or self-care (01) ==
PROVIDERS: Emergency Provider Nurse Practitioner Family; PCP Internal Medicine
DX: S80.11XA Contusion of right lower leg, initial encounter (principal); X58.XXXA Exposure to other specified factors, initial encounter; Z79.01 Long term (current) use of anticoagulants; M19.90 Unspecified osteoarthritis, unspecified site; I48.91 Unspecified atrial fibrillation; I10 Essential (primary) hypertension; E78.2 Mixed hyperlipidemia; M81.0 Age-related osteoporosis without current pathological fracture; E11.9 Type 2 diabetes mellitus without complications; I25.118 Atherosclerotic heart disease of native coronary artery with other forms of angina pectoris; Z79.82 Long term (current) use of aspirin
CPT/HCPCS: 73590; 99213; G0463

== ENCOUNTER 2020-12-26 10:35 | Outpatient (CLI) | payer MEDICARE, SELFPAY ==
--- NOTE | ~2020-12-26 | XR_ITS ---
EXAMINATION: XR foot RT min 3V EXAM DATE: 12/26/2020 10:59 INDICATION: Bruising across toes. TECHNIQUE: Right foot dorsoplantar, lateral and oblique projections obtained and reviewed. There is no prior study for comparison. FINDINGS: Right metatarsal bones unremarkable. There is mild polyarticular primary osteoarthritis. T here are no acute fractures or dislocations identified. There is no subcutaneous gas. The soft tiss ue is unremarkable. There are no radiopaque foreign bodies. IMPRESSION: Mild polyarticular osteoarthritis. Reviewed, dictated and finalized at location A. ING CONSULTANT
== END 2020-12-26 10:36 | disposition home or self-care (01) ==
PROVIDERS: PCP Internal Medicine; Visit Provider Internal Medicine
DX: M19.071 Primary osteoarthritis, right ankle and foot (principal)
CPT/HCPCS: 73630

== ENCOUNTER 2021-03-01 17:22 | Emergency (ER) | payer MEDICARE, SELFPAY ==
[2021-03-01 17:47] VITALS: BP 156/86; PULSE 79; RESP 18; O2SAT 97
[2021-03-01] MEDS: TETANUS,DIPHTHERIA,AC PERTUSSIS ADULT (0.5 ML) BOOSTRIX IM (17:58)
--- NOTE | 2021-03-01 18:36 | ED.UPPEXIN ---
HPI - Extremity Injury (Upper) General Chief Complaint: Extremity Injury, Upper Stated Complaint: smashed finger Time Seen by Provider: 03/01/21 17:31 Source: patient Mode of arrival: ambulatory Limitations: no limitations History of Present Illness HPI narrative: 81-year-old male On both aspirin and Xarelto Slammed his right pinky fingertip in a drawer and avulsed part of the tip Related Data Home Medications Medication Instructions Recorded Confirmed Xarelto 20 mg PO DAILY 11/05/19 02/01/21 aspirin 81 mg PO DAILY 11/05/19 02/01/21 glucosamine-chondroitin 30 ml PO DAILY 11/05/19 02/01/21 finasteride 5 mg tablet 5 mg PO DAILY 11/16/19 02/01/21 Allergies Allergy/AdvReac Type Severity Reaction Status Date / Time morphine Allergy Intermediate Agitated Verified 03/01/21 18:07 Review of Systems Neurologic: Denies numbness and Denies weakness Hematologic/Lymphatic: Hematologic/Lymphatic: Reports easy bleeding and Reports easy bruising PMF Past Medical History Medical History Anticoagulant long-term use Arthritis Atherosclerotic heart disease of [place] coronary artery with other forms of angina pectoris Atrial fibrillation Atrial flutter Essential (primary) hypertension Mixed hyperlipidemia Osteoporosis Paroxysmal atrial fibrillation Type 2 diabetes mellitus with hyperglycemia Surgical History Surgical History H/O hernia repair History of cholecystectomy History of parathyroid surgery History of prostate surgery Family History Family History Mother Family history of glaucoma Family history of elevated blood lipids Hypertension Carcinoma of colon Sibling Hypertension Family history of elevated blood lipids Father Family history of elevated blood lipids Hypertension Other Family history of cardiovascular disease Family history of malignant neoplasm Social History Social History (Updated 02/01/21 @ 10:51 by Roseann Moreno MA) Years smoked: 10 Smoking status: Former smoker Tobacco type: cigarettes and pipe Second hand tobacco smoke exposure: No Smoking end date: 10/27/1956 Additional smoking assessment comments: Pt. quit 60 years ago. Alcohol intake: current Drinks per week: 4 Substance use: never Substance use type: does not use Gender identity (if verbalized by the patient): Male Spiritual care concerns: No Exam Const: General: no acute distress and alert Orientation/consciousness: patient oriented x3 Skin: General skin exam: normal color Neuro: General: patient oriented x3 and moves all extremities Extrem: Other: There is a 1/2 cm distally based flap from the fifth fingertip just into the subcu Nail is intact and there is no subungual hematoma Course Vital Signs Vital signs: Vital Signs Pulse Rate 79 03/01/21 17:47 Respiratory Rate 18 03/01/21 17:47 Blood Pressure 156/86 H 03/01/21 17:47 Pulse Oximetry 97 03/01/21 17:47 Pulse Rate 79 03/01/21 17:47 Respiratory Rate 18 03/01/21 17:47 Blood Pressure 156/86 H 03/01/21 17:47 Pulse Oximetry 97 03/01/21 17:47 Procedures Laceration Laceration 1: Date: 03/01/21 Time: 18:15 Site: hand Side (If applicable): right Size (cm): 0.5 Description: flap Depth: simple, single layer Local Anesthetic: lidocaine 1% Amount of anesthesia used (mL): 0.5 Pre-repair: irrigated and other (slight amount of duskiness to skin margin was excised) ====== Skin Level ====== Size (cm): 5-0 Number of sutures: 3 Technique: simple, interrupted ====== Subcutaneous Layer ====== ====== Muscle Layer ====== ====== Tendon Layer ====== Discharge Plan Discharge Clinical Impression: Fingertip avulsion Patient Dis
== END 2021-03-01 18:54 | disposition home or self-care (01) ==
PROVIDERS: Emergency Provider Emergency Medicine; PCP Internal Medicine
DX: S61.206A Unspecified open wound of right little finger without damage to nail, initial encounter (principal); Z23 Encounter for immunization; I48.0 Paroxysmal atrial fibrillation; I25.118 Atherosclerotic heart disease of native coronary artery with other forms of angina pectoris; I48.92 Unspecified atrial flutter; I10 Essential (primary) hypertension; E78.2 Mixed hyperlipidemia; M81.0 Age-related osteoporosis without current pathological fracture; M19.90 Unspecified osteoarthritis, unspecified site; Z79.01 Long term (current) use of anticoagulants; Z79.82 Long term (current) use of aspirin; Z87.891 Personal history of nicotine dependence; W23.0XXA Caught, crushed, jammed, or pinched between moving objects, initial encounter
CPT/HCPCS: 12001; 90471; 90715; 99282

== ENCOUNTER 2021-03-08 08:40 | Outpatient (CLI) | payer MEDICARE, SELFPAY ==
[2021-03-08 09:22] LABS: Basophils Percent Auto 0.3 % (0.2-1.2); Eosinophils Absolute Auto 0.1 K/mm3 (0-0.3); Eosinophils Percent Auto 2.1 % (0-4.4); Hematocrit 46.1 % (42.0-52.0); Hemoglobin 15.3 g/dL (14.0-18.0); Immature Granulocyte Absolute 0.02 K/mm3 (0.00-0.031); Immature Granulocyte Percent A 0.3 % (0-0.5); Lymphocytes Absolute Auto 0.81 K/mm3 (0.9-3.2); Mean Corpuscular HGB Conc 33.2 g/dl (32-36); Mean Corpuscular Hemoglobin 31.2 pg (26-34); Mean Corpuscular Volume 93.9 fl (80-100); Mean Platelet Volume 10.9 fl (7.4-10.4); Monocytes Absolute Auto 0.6 K/mm3 (0.1-0.6); Monocytes Percent Auto 9.5 % (2.6-8.5); Neutrophils Absolute Auto 4.3 K/mm3 (1.3-6.7); Neutrophils Percent Auto 73.8 % (45.5-73.1); Platelet Count Result 185 k/mm3 (150-375); Red Blood Count 4.91 M/mm3 (4.6-6.20); Red Cell Distribution Width 13.1 % (11.5-14.5); White Blood Count 5.8 K/mm3 (4.5-10.0)
[2021-03-08 09:29] LABS: Alanine Aminotransferase 25 U/L (4-50); Albumin Level 3.9 g/dL (3.5-5.1); Alkaline Phosphatase 47 U/L (38-126); Anion Gap 1 mmol/L (8-16); Aspartate Amino Transferase 35 U/L (17-59); Bilirubin,Total 0.8 mg/dL (0.2-1.3); Blood Urea Nitrogen 14 mg/dL (9-20); Calcium 8.8 mg/dL (8.4-10.2); Carbon Dioxide 33 mmol/L (22-30); Chloride 102 mmol/L (98-107); Estimated Glomerular Filt Rate > 60; Glucose 120 mg/dL (75-110); Potassium 4.5 mmol/L (3.4-5.0); Sodium 136 mmol/L (137-145)
[2021-03-08 09:59] LABS: Creatinine Urine 78.6 mg/dL
[2021-03-08 10:03] LABS: MALB Creatinine Ratio 8.1 mg/g (0-30); Microalbumin Urine Random 6.4 mg/L (0-16.7)
[2021-03-08 10:11] LABS: Hemoglobin A1C 6.3 % (<5.7)
[2021-03-08 10:15] LABS: Vitamin D 25 Hydroxy 36.8 ng/mL
== END 2021-03-08 08:41 | disposition home or self-care (01) ==
LOC: ANHLAB 08:43
PROVIDERS: PCP Internal Medicine; Visit Provider Internal Medicine
DX: E11.65 Type 2 diabetes mellitus with hyperglycemia (principal); E55.9 Vitamin D deficiency, unspecified; E78.2 Mixed hyperlipidemia; I10 Essential (primary) hypertension; I48.0 Paroxysmal atrial fibrillation
CPT/HCPCS: 36415; 80053; 82043; 82306; 83036; 84443; 85025

== ENCOUNTER 2021-07-05 08:44 | Outpatient (CLI) | payer MEDICARE, SELFPAY ==
[2021-07-05 09:26] LABS: Anion Gap 6 mmol/L (8-16); Blood Urea Nitrogen 18 mg/dL (9-20); Carbon Dioxide 30 mmol/L (22-30); Chloride 101 mmol/L (98-107); Estimated Glomerular Filt Rate > 60; Glucose 142 mg/dL (65-110); Potassium 4.3 mmol/L (3.4-5.0); Sodium 137 mmol/L (137-145)
[2021-07-05 09:27] LABS: Creatinine Urine 87.3 mg/dL
[2021-07-05 09:30] LABS: MALB Creatinine Ratio 13.7 mg/g (0-30)
[2021-07-05 10:04] LABS: Hemoglobin A1C 6.6 % (<5.7)
== END 2021-07-05 08:45 | disposition home or self-care (01) ==
PROVIDERS: PCP Internal Medicine; Visit Provider Internal Medicine
DX: E11.65 Type 2 diabetes mellitus with hyperglycemia (principal)
CPT/HCPCS: 36415; 80048; 82043; 83036

== ENCOUNTER 2021-08-21 16:43 | Outpatient (CLI) | payer MEDICARE, SELFPAY ==
[2021-08-21 17:23] LABS: Basophils Percent Auto 0.4 % (0.2-1.2); Eosinophils Percent Auto 0.6 % (0-4.4); Hematocrit 45.6 % (42.0-52.0); Hemoglobin 15.1 g/dL (14.0-18.0); Immature Granulocyte Absolute 0.03 K/mm3 (0.00-0.031); Immature Granulocyte Percent A 0.4 % (0-0.5); Lymphocytes Absolute Auto 0.85 K/mm3 (0.9-3.2); Lymphocytes Percent Auto 12.3 % (18.3-44.2); Mean Corpuscular HGB Conc 33.1 g/dl (32-36); Mean Corpuscular Hemoglobin 30.8 pg (26-34); Mean Corpuscular Volume 92.9 fl (80-100); Mean Platelet Volume 11.1 fl (7.4-10.4); Monocytes Absolute Auto 0.5 K/mm3 (0.1-0.6); Monocytes Percent Auto 7.4 % (2.6-8.5); Neutrophils Absolute Auto 5.5 K/mm3 (1.3-6.7); Neutrophils Percent Auto 78.9 % (45.5-73.1); Platelet Count Result 194 k/mm3 (150-375); Red Blood Count 4.91 M/mm3 (4.6-6.20); Red Cell Distribution Width 12.6 % (11.5-14.5); White Blood Count 6.9 K/mm3 (4.5-10.0)
[2021-08-21 17:36] LABS: Anion Gap 8 mmol/L (8-16); Blood Urea Nitrogen 13 mg/dL (9-20); Carbon Dioxide 28 mmol/L (22-30); Chloride 102 mmol/L (98-107); Estimated Glomerular Filt Rate 58; Glucose 116 mg/dL (65-110); Potassium 3.8 mmol/L (3.4-5.0); Sodium 138 mmol/L (137-145)
== END 2021-08-21 16:44 | disposition home or self-care (01) ==
LOC: ANHLAB 16:47
PROVIDERS: PCP Internal Medicine; Visit Provider Internal Medicine Cardiovascular Disease
DX: R53.82 Chronic fatigue, unspecified (principal); I25.118 Atherosclerotic heart disease of native coronary artery with other forms of angina pectoris
CPT/HCPCS: 36415; 80048; 84443; 85025

== ENCOUNTER → 2021-09-19 01:45 | Outpatient (CLI) | payer MEDICARE, SELFPAY ==
[2021-09-19 18:14] LABS: SARS-CoV-2 RNA PCR Negative
== END ==
PROVIDERS: PCP Internal Medicine; Visit Provider Internal Medicine
DX: R68.89 Other general symptoms and signs (principal); Z20.822 Contact with and (suspected) exposure to COVID-19
CPT/HCPCS: C9803; U0003; U0005

== ENCOUNTER 2022-01-16 09:20 | Outpatient (CLI) | payer MEDICARE, SELFPAY ==
[2022-01-16 09:49] LABS: Basophils Percent Auto 0.5 % (0.2-1.2); Eosinophils Absolute Auto 0.1 K/mm3 (0-0.3); Eosinophils Percent Auto 1.5 % (0-4.4); Hematocrit 45.7 % (42.0-52.0); Hemoglobin 15.3 g/dL (14.0-18.0); Immature Granulocyte Absolute 0.01 K/mm3 (0.00-0.031); Immature Granulocyte Percent A 0.2 % (0-0.5); Lymphocytes Absolute Auto 0.83 K/mm3 (0.9-3.2); Lymphocytes Percent Auto 15.1 % (18.3-44.2); Mean Corpuscular HGB Conc 33.5 g/dl (32-36); Mean Corpuscular Hemoglobin 31.4 pg (26-34); Mean Corpuscular Volume 93.6 fl (80-100); Mean Platelet Volume 11.3 fl (7.4-10.4); Monocytes Absolute Auto 0.4 K/mm3 (0.1-0.6); Neutrophils Absolute Auto 4.1 K/mm3 (1.3-6.7); Neutrophils Percent Auto 74.7 % (45.5-73.1); Platelet Count Result 202 k/mm3 (150-375); Red Blood Count 4.88 M/mm3 (4.6-6.20); Red Cell Distribution Width 13.1 % (11.5-14.5); White Blood Count 5.5 K/mm3 (4.5-10.0)
[2022-01-16 10:00] LABS: Hemoglobin A1C 6.1 % (<5.7)
[2022-01-16 10:11] LABS: Alanine Aminotransferase 27 U/L (4-50); Alkaline Phosphatase 54 U/L (38-126); Anion Gap 5 mmol/L (8-16); Aspartate Amino Transferase 36 U/L (17-59); Bilirubin,Total 1.1 mg/dL (0.2-1.3); Blood Urea Nitrogen 14 mg/dL (9-20); Calcium 8.6 mg/dL (8.4-10.2); Carbon Dioxide 31 mmol/L (22-30); Chloride 101 mmol/L (98-107); Cholesterol 123 mg/dL (0-200); Estimated Glomerular Filt Rate > 60; Glucose 138 mg/dL (65-110); HDL Direct 38 mg/dL; Sodium 137 mmol/L (137-145); Triglycerides 102 mg/dL (<150)
[2022-01-16 10:20] LABS: LDL Cholesterol Direct 67 mg/dL
[2022-01-16 10:24] LABS: MALB Creatinine Ratio 14.4 mg/g (0-30); Microalbumin Urine Random 18.8 mg/L (0-16.7)
[2022-01-16 10:45] LABS: Prostate Specific Antigen 1.5 ng/mL (< OR = 4.0)
[2022-01-16 10:45] LABS: Vitamin D 25 Hydroxy 39.3 ng/mL
== END 2022-01-16 09:21 | disposition home or self-care (01) ==
PROVIDERS: PCP Internal Medicine; Referring Provider Internal Medicine Cardiovascular Disease; Visit Provider Internal Medicine
DX: G47.33 Obstructive sleep apnea (adult) (pediatric) (principal); E55.9 Vitamin D deficiency, unspecified; N40.1 Benign prostatic hyperplasia with lower urinary tract symptoms; E11.65 Type 2 diabetes mellitus with hyperglycemia; E78.2 Mixed hyperlipidemia; Z79.01 Long term (current) use of anticoagulants; I25.118 Atherosclerotic heart disease of native coronary artery with other forms of angina pectoris; I10 Essential (primary) hypertension; I48.0 Paroxysmal atrial fibrillation; K58.1 Irritable bowel syndrome with constipation; I50.21 Acute systolic (congestive) heart failure; Z12.5 Encounter for screening for malignant neoplasm of prostate
CPT/HCPCS: 36415; 80053; 80061; 82043; 82306; 83036; 84153; 84443; 85025; G0103

== ENCOUNTER 2022-02-27 17:11 | Emergency (ER) | payer MEDICARE, SELFPAY ==
[2022-02-27 17:23] VITALS: BP 154/74; PULSE 70; RESP 16; TEMP 36.2; O2SAT 99
--- NOTE | 2022-02-27 17:40 | ED.SKABFB ---
HPI - Skin/Abscess/Foreign Bdy General Chief complaint: Skin/Abscess/Foreign Body Stated complaint: right 2nd digit finger Time Seen by Provider: 02/27/22 17:40 Source: patient Mode of arrival: ambulatory Limitations: no limitations History of Present Illness HPI narrative: 82-year-old male presents with a painful bump to right index finger. States he has had this for approximately 1 month. Showed it to his PCP had a appointment and was told to use wart remover. States he used about 5 of the wart Band-Aids and it became very irritated. Reports that he did not have any pain to the bump until he had used the wart remover Band-Aids. States that his attempted to open a bump with a sewing needle in attempt to relieve some of the pressure and pain. Was not able to relieve any drainage. All systems reviewed and negative except as noted above. Related Data Home Medications Medication Instructions Recorded Confirmed Xarelto 20 mg PO DAILY 11/05/19 02/27/22 aspirin 81 mg PO DAILY 11/05/19 02/27/22 glucosamine-chondroitin 30 ml PO DAILY 11/05/19 02/27/22 finasteride 5 mg tablet 5 mg PO DAILY 11/16/19 02/27/22 Allergies Allergy/AdvReac Type Severity Reaction Status Date / Time morphine Allergy Intermediate Agitated Verified 02/27/22 17:23 Review of Systems Review of Systems: CONSTITUTIONAL: Denies fever, chills, or sweats. EYES: Denies visual changes, redness, or discharge. ENT: Denies rhinorrhea, congestion, sore throat, or otalgia. CARDIOVASCULAR: Denies chest pain, palpitations, or edema. RESPIRATORY: Denies cough or dyspnea. GASTROINTESTINAL: Denies abdominal pain, nausea, vomiting, or diarrhea. GENITOURINARY: Denies dysuria or hematuria. SKIN: Denies rash or itching. Reports painful bump to right index finger. MUSCULOSKELETAL: Denies back pain, joint pain, or myalgia. NEUROLOGIC: Denies headache, numbness, or weakness. PSYCHIATRIC: Denies anxiety or depression. All other systems reviewed are negative, except as documented in HPI. FORMERLY [facility] Past Medical History Medical History Anticoagulant long-term use Arthritis Atherosclerotic heart disease of [place] coronary artery with other forms of angina pectoris Atrial fibrillation Atrial flutter Essential (primary) hypertension Mixed hyperlipidemia Osteoporosis Paroxysmal atrial fibrillation Type 2 diabetes mellitus with hyperglycemia Surgical History Surgical History H/O hernia repair History of cholecystectomy History of parathyroid surgery History of prostate surgery Family History Family History Mother Family history of glaucoma Family history of elevated blood lipids Hypertension Carcinoma of colon Sibling Hypertension Family history of elevated blood lipids Father Family history of elevated blood lipids Hypertension Other Family history of cardiovascular disease Family history of malignant neoplasm Social History Social History Smoking packs per day: 1 Smoking cigarettes per day: 20.0 Years smoked: 10 Smoking pack-years: 10.00 Tobacco type: cigarettes and pipe Second hand tobacco smoke exposure: No Smoking end date: 10/27/1956 Additional smoking assessment comments: Pt. quit 60 years ago. Alcohol intake: current Drinks per week: 4 Alcohol use details: beer Substance use: never Substance use type: does not use Gender identity (if verbalized by the patient): Male Spiritual care concerns: No Comments At time of signature, agree with nursing past medical, surgical, social and family history. There is no relevant family history pertinent to the presenting complaint. Exam Narrative: GENERAL: This is a well-nourished, well-developed patient, in no apparent distress. HEAD: normocephalic, atraumat
== END 2022-02-27 18:05 | disposition home or self-care (01) ==
PROVIDERS: Emergency Provider Nurse Practitioner Family; PCP Internal Medicine
DX: M67.441 Ganglion, right hand (principal); I25.10 Atherosclerotic heart disease of native coronary artery without angina pectoris; I10 Essential (primary) hypertension; E11.9 Type 2 diabetes mellitus without complications; I48.0 Paroxysmal atrial fibrillation; F17.210 Nicotine dependence, cigarettes, uncomplicated
CPT/HCPCS: 20612; 99213; G0463

== ENCOUNTER 2022-03-12 16:21 | Emergency (ER) | payer MEDICARE, SELFPAY ==
--- NOTE | 2022-03-12 16:28 | ED.EAR ---
HPI - Ear Problem General Chief complaint: Ear Stated complaint: foreign body right ear Time Seen by Provider: 03/12/22 16:29 Source: patient, RN notes reviewed and old records reviewed Mode of arrival: ambulatory Limitations: no limitations History of Present Illness HPI Narrative: 82-year-old male presents to the [facility] with part of his hearing aid lodged in his right ear he thinks. Has irritation and pain to the area. States its been 2 to 3 days. MD Complaint: foreign body Related Data Home Medications Medication Instructions Recorded Confirmed Xarelto 20 mg PO DAILY 11/05/19 03/12/22 aspirin 81 mg PO DAILY 11/05/19 03/12/22 glucosamine-chondroitin 30 ml PO DAILY 11/05/19 03/12/22 finasteride 5 mg tablet 5 mg PO DAILY 11/16/19 03/12/22 Allergies Allergy/AdvReac Type Severity Reaction Status Date / Time morphine Allergy Intermediate Agitated Verified 03/12/22 16:24 Review of Systems Review of Systems: All systems reviewed & are unremarkable except as noted in HPI and below Constitutional: Constitutional: Reports no additional constitutional complaints, Denies chills and Denies fever(s) Eyes: Eyes: Reports no additional eye complaints ENT: Reports as per HPI, Denies change in voice, Denies dental pain, Denies vertigo, Denies dizziness and Denies throat swelling Comments: Ear pain, right Cardiovascular: Cardiovascular: Reports no additional cardiovascular complaints, Denies chest pain and Denies dyspnea Respiratory: Respiratory: Reports no additional respiratory complaints, Denies cough and Denies dyspnea Gastrointestinal: Gastrointestinal: Reports no additional gastrointestinal complaints, Denies abdominal pain, Denies nausea and Denies vomiting Musculoskeletal: Musculoskeletal: Reports no additional musculoskeletal complaints Integumentary/Breasts: Skin/Breast: Reports system reviewed and no additional complaints, except as docu Neurologic: Reports system reviewed and no additional complaints, except as documented, Denies vertigo and Denies dizziness Psychiatric: Psychiatric: Reports no additional psychiatric complaints Allergic/Immunologic: Allergic/Immunologic: Reports no additional allergic/immunologic complaints and Denies throat swelling [facility] Past Medical History Medical History Anticoagulant long-term use Arthritis Atherosclerotic heart disease of [place] coronary artery with other forms of angina pectoris Atrial fibrillation Atrial flutter Essential (primary) hypertension Mixed hyperlipidemia Osteoporosis Paroxysmal atrial fibrillation Type 2 diabetes mellitus with hyperglycemia Surgical History Surgical History H/O hernia repair History of cholecystectomy History of parathyroid surgery History of prostate surgery Family History Family History Mother Family history of glaucoma Family history of elevated blood lipids Hypertension Carcinoma of colon Sibling Hypertension Family history of elevated blood lipids Father Family history of elevated blood lipids Hypertension Other Family history of cardiovascular disease Family history of malignant neoplasm Social History Social History Smoking packs per day: 1 Smoking cigarettes per day: 20.0 Years smoked: 10 Smoking pack-years: 10.00 Tobacco type: cigarettes and pipe Second hand tobacco smoke exposure: No Smoking end date: 10/27/1956 Additional smoking assessment comments: Pt. quit 60 years ago. Alcohol intake: current Drinks per week: 4 Alcohol use details: beer Substance use: never Substance use type: does not use Gender identity (if verbalized by the patient): Male Spiritual care concerns: No Comments At the time of my signature, I reviewed and agree with the nursing
[2022-03-12 16:33] VITALS: BP 153/72; PULSE 70; RESP 18; TEMP 36.2; O2SAT 99
== END 2022-03-12 16:45 | disposition home or self-care (01) ==
PROVIDERS: Emergency Provider Nurse Practitioner; PCP Internal Medicine
DX: T16.1XXA Foreign body in right ear, initial encounter (principal); X58.XXXA Exposure to other specified factors, initial encounter; M19.90 Unspecified osteoarthritis, unspecified site; I48.91 Unspecified atrial fibrillation; I10 Essential (primary) hypertension; E78.2 Mixed hyperlipidemia; E11.9 Type 2 diabetes mellitus without complications; Z87.891 Personal history of nicotine dependence
CPT/HCPCS: 69200; 99213; G0463

== ENCOUNTER 2022-05-31 11:21 | Outpatient (CLI) | payer MEDICARE, SELFPAY ==
[2022-05-31 11:58] LABS: Basophils Percent Auto 0.4 % (0.2-1.2); Eosinophils Absolute Auto 0.1 K/mm3 (0-0.3); Eosinophils Percent Auto 1.8 % (0-4.4); Hematocrit 43.8 % (42.0-52.0); Hemoglobin 14.4 g/dL (14.0-18.0); Immature Granulocyte Absolute 0.02 K/mm3 (0.00-0.031); Immature Granulocyte Percent A 0.4 % (0-0.5); Lymphocytes Absolute Auto 0.83 K/mm3 (0.9-3.2); Lymphocytes Percent Auto 16.3 % (18.3-44.2); Mean Corpuscular HGB Conc 32.9 g/dl (32-36); Mean Corpuscular Hemoglobin 29.8 pg (26-34); Mean Corpuscular Volume 90.7 fl (80-100); Mean Platelet Volume 11.3 fl (7.4-10.4); Monocytes Absolute Auto 0.4 K/mm3 (0.1-0.6); Monocytes Percent Auto 7.1 % (2.6-8.5); Neutrophils Absolute Auto 3.8 K/mm3 (1.3-6.7); Platelet Count Result 190 k/mm3 (150-375); Red Blood Count 4.83 M/mm3 (4.6-6.20); Red Cell Distribution Width 12.7 % (11.5-14.5); White Blood Count 5.1 K/mm3 (4.5-10.0)
[2022-05-31 12:08] LABS: Anion Gap 9 mmol/L (8-16); Blood Urea Nitrogen 14 mg/dL (9-20); Calcium 8.5 mg/dL (8.4-10.2); Carbon Dioxide 28 mmol/L (22-30); Chloride 99 mmol/L (98-107); Estimated Glomerular Filt Rate > 60; Glucose 151 mg/dL (65-110); Sodium 136 mmol/L (137-145)
[2022-05-31 12:17] LABS: NT Pro B Type Natriuretic Pept 196 pg/mL (5-100)
== END 2022-05-31 11:22 | disposition home or self-care (01) ==
LOC: ANHLAB 11:25
PROVIDERS: PCP Internal Medicine; Visit Provider Internal Medicine Cardiovascular Disease
DX: R06.02 Shortness of breath (principal); I48.0 Paroxysmal atrial fibrillation
CPT/HCPCS: 36415; 80048; 83880; 84443; 85025

== ENCOUNTER 2022-06-19 08:38 | Emergency (ER) | payer MEDICARE, SELFPAY ==
[2022-06-19 08:49] VITALS: BP 153/79; PULSE 88; RESP 16; TEMP 37.2; O2SAT 99
--- NOTE | 2022-06-19 08:54 | ED.URI ---
HPI - URI/Sore Throat General Chief Complaint: Upper Respiratory Infection Stated Complaint: uri Time Seen by Provider: 06/19/22 08:54 Source: patient, RN notes reviewed and old records reviewed Mode of arrival: ambulatory Limitations: no limitations History of Present Illness HPI Narrative: 82-year-old male who presents to [facility] care accompanied by with 4 to 5-day history of sinus congestion, drainage, pressure to face with forehead headache pain. Patient has been taking Delsym cough syrup but states is not doing any good has not slept at all last night due to cough. Patient is also been taking Zyrtec daily and Flonase. Patient states also that when he turns over in bed on his left side he is a little dizzy. Patient has had COVID vaccinations and Booster and flu shot. MD elicited complaint: cough, rhinorrhea, nasal congestion, sinus pain and other (headache) Pertinent past history: sinusitis Onset (ago): day(s) (4-5 days) Pain scale (0-10): 3 Treatments prior to arrival: other (zyrtec and delsym) Related Data Home Medications Medication Instructions Recorded Confirmed aspirin 81 mg chewable tablet 81 mg PO DAILY 11/05/19 06/19/22 glucosamine-chondroitin 1,500 mg 30 ml PO DAILY 11/05/19 06/19/22 -1,200 mg/30 mL oral liquid rivaroxaban 20 mg tablet (Xarelto) 20 mg PO DAILY 11/05/19 06/19/22 finasteride 5 mg tablet 5 mg PO DAILY 11/16/19 06/19/22 furosemide 20 mg tablet 20 mg PO DAILY 06/19/22 06/19/22 simvastatin 20 mg tablet 20 mg PO DAILY 06/19/22 06/19/22 suvorexant 10 mg tablet (Belsomra) 10 mg PO DAILY 06/19/22 06/19/22 Allergies Allergy/AdvReac Type Severity Reaction Status Date / Time morphine Allergy Intermediate Agitated Verified 06/19/22 08:39 Review of Systems Review of Systems: CONSTITUTIONAL: Denies known fever, chills, or sweats. EYES: Denies visual changes, redness, or discharge. ENT: Positive rhinorrhea, congestion,no sore throat, or otalgia. CARDIOVASCULAR: Denies chest pain, palpitations, or edema. RESPIRATORY: Acute cough denies dyspnea. GASTROINTESTINAL: Denies abdominal pain, nausea, vomiting, or diarrhea. GENITOURINARY: Denies dysuria or hematuria. SKIN: Denies rash or itching. MUSCULOSKELETAL: Denies back pain, joint pain, or myalgia. NEUROLOGIC: Positive headache,no numbness, or weakness, some dizziness when he turns his head to the right PSYCHIATRIC: Denies anxiety or depression. All systems reviewed & are unremarkable except as noted in HPI and below PMFSH Past Medical History Medical History Anticoagulant long-term use Arthritis Atherosclerotic heart disease of [place] coronary artery with other forms of angina pectoris Atrial fibrillation Atrial flutter Essential (primary) hypertension Mixed hyperlipidemia Osteoporosis Paroxysmal atrial fibrillation Type 2 diabetes mellitus with hyperglycemia Surgical History Surgical History H/O hernia repair right inguinal hernia repair, Dr. Albarran History of cholecystectomy History of parathyroid surgery History of prostate surgery Family History Family History Mother Family history of glaucoma Family history of elevated blood lipids Hypertension Carcinoma of colon Sibling Hypertension Family history of elevated blood lipids Father Family history of elevated blood lipids Hypertension Other Family history of cardiovascular disease Family history of malignant neoplasm Social History Social History Smoking packs per day: 1 Smoking cigarettes per day: 20.0 Years smoked: 10 Smoking pack-years: 10.00 Smoking status: Former smoker Tobacco type: cigarettes and pipe Second hand tobacco smoke exposure: No Smoking end date: 10/27/1956 Additional smoking assessment comments: Pt. quit 60 years ago.
== END 2022-06-19 09:23 | disposition home or self-care (01) ==
PROVIDERS: Emergency Provider Registered Nurse; PCP Internal Medicine
DX: J32.9 Chronic sinusitis, unspecified (principal); R05.1 Acute cough; Z87.891 Personal history of nicotine dependence; I48.0 Paroxysmal atrial fibrillation; M19.90 Unspecified osteoarthritis, unspecified site; I25.118 Atherosclerotic heart disease of native coronary artery with other forms of angina pectoris; I10 Essential (primary) hypertension; E78.2 Mixed hyperlipidemia; M81.0 Age-related osteoporosis without current pathological fracture
CPT/HCPCS: 99213; G0463

== ENCOUNTER 2022-06-29 03:35 | Emergency (ER) | payer MEDICARE, SELFPAY ==
[2022-06-29 03:39] VITALS: BP 181/96; PULSE 90; RESP 17; TEMP 36.7; O2SAT 99
--- NOTE | 2022-06-29 04:42 | ECG_ITS ---
Measurements Intervals Jud Rate: 62 P: [place]: 0 QRS: 25 QRSD: 163 T: -16 QT: 357 QTc: 363 Interpretive Statements ATRIAL FLUTTER/TACHYCARDIA RIGHT BUNDLE BRANCH BLOCK BASELINE WANDER- I, II ABNORMAL ECG COMPARED TO ECG 11/28/2020 11:36:01 ATRIAL FLUTTER NOW PRESENT Electronically Signed On 06-29-2022 7:32:48 CDT by Lionel Chavis D.O.
[2022-06-29] MEDS: LORazepam INJ (*CRX) 2 MG/ML VIAL 0.5 MG IV PUSH (04:50)
--- NOTE | 2022-06-29 04:55 | ED.GENADULT ---
HPI - General Adult General Chief complaint: Anxiety Stated complaint: Anxiety Time Seen by Provider: 06/29/22 04:34 History of Present Illness HPI narrative: Patient 82-year-old gentleman who presents the emergency department with chief complaint of anxiety. The patient reports that he has been having issues sleeping for the past several months has seen his primary provider but is currently changing providers and is having difficulty being treated adequately for the patient states he is scheduled for sleep study and also scheduled for either cardioversion or ablation due to A. fib. Patient states he is not having any chest pain reports that he is had a little bit of shortness of breath at times but mostly feels as though he is extremely anxious the patient reports he paces the house throughout the night but denies any suicidal or homicidal ideation. Related Data Home Medications Medication Instructions Recorded Confirmed aspirin 81 mg chewable tablet 81 mg PO DAILY 11/05/19 06/19/22 glucosamine-chondroitin 1,500 mg 30 ml PO DAILY 11/05/19 06/19/22 -1,200 mg/30 mL oral liquid rivaroxaban 20 mg tablet (Xarelto) 20 mg PO DAILY 11/05/19 06/19/22 finasteride 5 mg tablet 5 mg PO DAILY 11/16/19 06/19/22 furosemide 20 mg tablet 20 mg PO DAILY 06/19/22 06/19/22 simvastatin 20 mg tablet 20 mg PO DAILY 06/19/22 06/19/22 suvorexant 10 mg tablet (Belsomra) 10 mg PO DAILY 06/19/22 06/19/22 Allergies Allergy/AdvReac Type Severity Reaction Status Date / Time morphine Allergy Intermediate Agitated Verified 06/29/22 03:43 amiodarone [From Pacerone] Allergy Other Verified 06/29/22 03:43 Review of Systems Review of Systems: A 10 system review of systems was completed on the patient and is negative except for what is stated in the HPI. Nursing and ancillary documentation was reviewed. FORMERLY [facility], [facility] Past Medical History Medical History Anticoagulant long-term use Arthritis Atherosclerotic heart disease of [place] coronary artery with other forms of angina pectoris Atrial fibrillation Atrial flutter COVID-19 Essential (primary) hypertension Mixed hyperlipidemia Osteoporosis Paroxysmal atrial fibrillation Type 2 diabetes mellitus with hyperglycemia Surgical History Surgical History H/O hernia repair right inguinal hernia repair, Dr. Albarran History of cholecystectomy History of parathyroid surgery History of prostate surgery Family History Family History Mother Family history of glaucoma Family history of elevated blood lipids Hypertension Carcinoma of colon Sibling Hypertension Family history of elevated blood lipids Father Family history of elevated blood lipids Hypertension Other Family history of cardiovascular disease Family history of malignant neoplasm Social History Social History Smoking packs per day: 1 Smoking cigarettes per day: 20.0 Years smoked: 10 Smoking pack-years: 10.00 Smoking status: Former smoker Tobacco type: cigarettes and pipe Second hand tobacco smoke exposure: No Smoking end date: 10/27/1956 Additional smoking assessment comments: Pt. quit 60 years ago. Alcohol intake: current Drinks per week: 4 Alcohol use details: beer Substance use: never Substance use type: does not use Gender identity (if verbalized by the patient): Male Spiritual care concerns: No Exam Narrative: GENERAL: Well-appearing, well-nourished, and in no acute distress. HEAD: Normocephalic, atraumatic. EYES: PERRLA and EOMI. ENT: Nares clear, no rhinorrhea or epistaxis. Mucous membranes moist. NECK: Supple. CHEST: Clear to auscultation. No respiratory distress. HEART: Irregular rate and rhythm. No murmur heard. Normal peripheral pulses. ABDO
[2022-06-29 05:01] VITALS: BP 165/87; PULSE 59; RESP 17; O2SAT 97
[2022-06-29 05:12] LABS: Basophils Percent Auto 0.3 % (0.2-1.2); Eosinophils Absolute Auto 0.1 K/mm3 (0-0.3); Eosinophils Percent Auto 1.7 % (0-4.4); Hematocrit 43.7 % (42.0-52.0); Hemoglobin 14.5 g/dL (14.0-18.0); Immature Granulocyte Absolute 0.04 K/mm3 (0.00-0.031); Immature Granulocyte Percent A 0.6 % (0-0.5); Lymphocytes Absolute Auto 1.04 K/mm3 (0.9-3.2); Lymphocytes Percent Auto 15.8 % (18.3-44.2); Mean Corpuscular HGB Conc 33.2 g/dl (32-36); Mean Corpuscular Hemoglobin 29.1 pg (26-34); Mean Corpuscular Volume 87.8 fl (80-100); Mean Platelet Volume 10.8 fl (7.4-10.4); Monocytes Absolute Auto 0.4 K/mm3 (0.1-0.6); Monocytes Percent Auto 5.9 % (2.6-8.5); Neutrophils Percent Auto 75.7 % (45.5-73.1); Platelet Count Result 210 k/mm3 (150-375); Red Blood Count 4.98 M/mm3 (4.6-6.20); White Blood Count 6.6 K/mm3 (4.5-10.0)
[2022-06-29 05:15] LABS: Appearance Urine Clear (Clear); Bilirubin Urine Negative (Negative); Blood Urine Negative (Negative); Color Urine Yellow (Yellow); Glucose Urine UA Negative (Negative); Ketones Urine Negative (Negative); Leukocyte Esterase Ur Negative LEU/UL (Negative); Nitrate Urine Negative (Negative); Protein Urine Negative (Negative); Urobilinogen Urine 0.2 mg/dL (<2.0); pH Urine 5.5 (5.0-9.0)
[2022-06-29 05:17] VITALS: BP 154/93; PULSE 63; RESP 14; O2SAT 97
[2022-06-29 05:17] LABS: Add Urine Microscopic? NO
[2022-06-29 05:23] LABS: INR 1.9; Prothrombin Time 21.4 Seconds (11.1-14.7)
[2022-06-29 05:24] LABS: Partial Thromboplastin Time 39.7 SECONDS (22.3-36.8)
[2022-06-29 05:28] LABS: Alanine Aminotransferase 22 U/L (6-50); Albumin Level 3.8 g/dL (3.5-5.1); Alkaline Phosphatase 53 U/L (38-126); Anion Gap 7 mmol/L (8-16); Aspartate Amino Transferase 38 U/L (17-59); Bilirubin,Total 0.9 mg/dL (0.2-1.3); Blood Urea Nitrogen 17 mg/dL (9-20); Calcium 8.7 mg/dL (8.4-10.2); Carbon Dioxide 28 mmol/L (22-30); Chloride 102 mmol/L (98-107); Estimated Glomerular Filt Rate > 60; Glucose 139 mg/dL (65-110); Potassium 3.7 mmol/L (3.4-5.0); Sodium 137 mmol/L (137-145)
[2022-06-29 05:30] VITALS: PULSE 58; RESP 18; O2SAT 96
[2022-06-29 05:32] VITALS: BP 154/86; PULSE 57; RESP 17; O2SAT 98
[2022-06-29 05:40] LABS: NT Pro B Type Natriuretic Pept 202 pg/mL (5-100); Troponin I < 0.012 ng/mL (0.000-0.034)
[2022-06-29 05:47] VITALS: BP 157/92; PULSE 61; RESP 16; O2SAT 97
== END 2022-06-29 06:08 | disposition home or self-care (01) ==
PROVIDERS: Emergency Provider Emergency Medicine; PCP Internal Medicine
DX: F41.9 Anxiety disorder, unspecified (principal); I48.0 Paroxysmal atrial fibrillation; I25.118 Atherosclerotic heart disease of native coronary artery with other forms of angina pectoris; I48.92 Unspecified atrial flutter; I10 Essential (primary) hypertension; E78.2 Mixed hyperlipidemia; E11.9 Type 2 diabetes mellitus without complications; M19.90 Unspecified osteoarthritis, unspecified site; M81.0 Age-related osteoporosis without current pathological fracture; Z86.16 Personal history of COVID-19; Z87.891 Personal history of nicotine dependence; Z79.01 Long term (current) use of anticoagulants; Z79.84 Long term (current) use of oral hypoglycemic drugs; I45.10 Unspecified right bundle-branch block; R06.02 Shortness of breath
CPT/HCPCS: 36415; 80053; 81003; 83880; 84484; 85025; 85610; 85730; 93005; 96374; 99284; J2060

== ENCOUNTER 2022-07-08 03:00 | Day surgery (SDC) | payer MEDICARE, SELFPAY ==
[2022-07-04 13:59] VITALS: BMI 27.6
[2022-07-08] VITALS (10 sets, daily range): BP systolic 136–160; BP diastolic 79–96; PULSE 66–76; RESP 14–20; TEMP 36.6; O2SAT 93–97; BMI 27.6
--- NOTE | 2022-07-08 08:30 | ECG_ITS ---
Measurements Intervals [place] Rate: 75 P: [place]: 0 QRS: 30 QRSD: 165 T: 0 QT: 450 QTc: 505 Interpretive Statements ATRIAL FLUTTER/TACHYCARDIA WITH NORMAL VENTRICULAR RESPONSE RIGHT BUNDLE BRANCH BLOCK ABNORMAL ECG COMPARED TO ECG 06/29/2022 04:52:35 NO SIGNIFICANT CHANGES Electronically Signed On 07-08-2022 12:28:30 CDT by Lionel Chavis D.O.
[2022-07-08 09:11] LABS: Anion Gap 8 mmol/L (8-16); Blood Urea Nitrogen 14 mg/dL (9-20); Calcium 8.8 mg/dL (8.4-10.2); Carbon Dioxide 26 mmol/L (22-30); Chloride 103 mmol/L (98-107); Estimated CRCL calculation 61 ml/min; Estimated Glomerular Filt Rate > 60; Glucose 137 mg/dL (65-110); Magnesium 1.9 mg/dL (1.6-2.3); Potassium 4.1 mmol/L (3.4-5.0); Sodium 137 mmol/L (137-145)
--- NOTE | 2022-07-08 09:54 | WPDHPUPDATE1 ---
History and Physical Update Update Date/Time: 07/08/22 09:54 History and Physical has been reviewed, including an updated exam of the patient. There are NO changes in the patient's condition. Risks, benefits, and alternatives have been discussed and questions answered. Patient agrees to proceed with procedure.
--- NOTE | 2022-07-08 09:54 | WPDMODSED ---
Moderate Sedation Note-Pt Data Patient Data Diagnosis: Atrial flutter Present Complaint: Fatigue Patient is a very pleasant 82-year-old gentleman with paroxysmal atrial fibrillation and atrial flutter who complains of progressive fatigue and shortness of breath. He was found to have recurrence of atrial flutter subsequently referred for elective electrical cardioversion in attempt to restore sinus rhythm. He has been maintained on systemic anticoagulation without interruption for rhythm 4 weeks. Procedure to be performed/Plan: Elective electrical cardioversion Allergies Allergy/AdvReac Type Severity Reaction Status Date / Time morphine Allergy Intermediate Agitated Verified 07/04/22 14:23 amiodarone [From Pacerone] AdvReac Other Verified 07/08/22 09:10 Home Medications Medication Instructions Recorded Confirmed Type aspirin 81 mg chewable tablet 81 mg PO DAILY 11/05/19 07/08/22 History glucosamine-chondroitin 1,500 mg 30 ml PO DAILY 11/05/19 07/08/22 History -1,200 mg/30 mL oral liquid rivaroxaban 20 mg tablet (Xarelto) 20 mg PO HS 11/05/19 07/08/22 History finasteride 5 mg tablet 5 mg PO DAILY 11/16/19 07/08/22 History lisinopril 20 mg tablet 20 mg PO DAILY #90 tabs 04/30/22 07/08/22 Rx metformin 500 mg tablet 500 mg PO BID #180 tabs 04/30/22 07/08/22 Rx simvastatin 20 mg tablet 20 mg PO DAILY 06/19/22 07/08/22 History docusate sodium 100 mg capsule 100 mg PO DAILY 07/04/22 07/08/22 History (Colace) lorazepam 0.5 mg tablet (Ativan) 0.5 mg PO TID PRN anxiety 5 days 07/04/22 07/08/22 Rx #90 tabs Current Medications: Active Medications Sodium Chloride (Normal Saline Iv) 1,000 mls @ 30 mls/hr IV CONT .Q24H RICKY Sedation/Anesthesia: No previous sedation/anesthesia problems (including family history). [facility] Past Medical History Medical History Anticoagulant long-term use Arthritis Atherosclerotic heart disease of [place] coronary artery with other forms of angina pectoris Atrial fibrillation Atrial flutter COVID-19 Essential (primary) hypertension Mixed hyperlipidemia Osteoporosis Paroxysmal atrial fibrillation Type 2 diabetes mellitus with hyperglycemia Surgical History Surgical History H/O hernia repair right inguinal hernia repair, Dr. Albarran History of cholecystectomy History of parathyroid surgery History of prostate surgery Family History Family History Mother Family history of glaucoma Family history of elevated blood lipids Hypertension Carcinoma of colon Sibling Hypertension Family history of elevated blood lipids Father Family history of elevated blood lipids Hypertension Other Family history of cardiovascular disease Family history of malignant neoplasm Social History Social History Smoking packs per day: 1 Smoking cigarettes per day: 20.0 Years smoked: 10 Smoking pack-years: 10.00 Smoking status: Former smoker Tobacco type: cigarettes Second hand tobacco smoke exposure: No Smoking end date: 10/27/1956 Additional smoking assessment comments: Pt. quit 60 years ago. Alcohol intake: former Drinks per week: 4 Alcohol use details: beer Substance use: never Substance use type: does not use Living arrangements: with family Gender identity (if verbalized by the patient): Male Spiritual care concerns: No Mod Sed Physical Exam Physical Exam Pre Procedural Exam: Normal: Appearance, Eyes, Ears, Nose, Neck (Supple, normal range of motion), Throat (Posterior hypopharynx clear, nonerythematous), Airway (Normal anatomy, no obstruction), Lungs (Clear to auscultation bilaterally), Heart Size, Heart Rate (Irregularly irregular rate and rhythm), Heart Rhythm, Neuro Exam, Abdomen, Liver, Extremities and Skin Hours since tiara
--- NOTE | 2022-07-08 09:57 | P.PCNCVR_ITS ---
Cardioversion Cardioversion Date of procedure: 07/08/22 Procedure: Elective electrical cardioversion Pre-op diagnosis: Atrial flutter Post-op diagnosis: Same Indications: Atrial flutter Description of procedure: Brief history present illness: Patient is a pleasant 82-year-old gentle with a history of CAD status post stent, hypertension, type 2 diabetes mellitus, hyperlipidemia, paroxysmal atrial flutter on systemic anticoagulation referred for elective electrical cardioversion in attempt to restore sinus rhythm. Procedure in detail: After verbal and written informed consent was obtained the patient risks, benefits, and alternatives explained in detail the patient agreed to proceed with the plan of care as outlined above. Patient was evaluated at bedside in the [facility] room. On examination, neck was supple with normal range of motion, no restrictions to opening of the oral cavity, jaw angle and posterior hypopharynx was clear. Lungs were clear to auscultation. Patient was placed in appropriate 30 to 45 degree angle in a supine position. Patient was monitored throughout the study with telemetry, oxygen saturation, end-tidal CO2 monitoring, blood pressure, heart rate, and respirations. Anterior and posterior defibrillator pads placed in the appropriate positions. After confirmation of adequate sedation electrical cardioversion was carried out without complication. Patient tolerated the procedure well without difficulty. Sedation: Moderate Sedation/Anesthesia administration: Patient denied previous intolerance or complications with anesthesia/sedation. Please see sedation note for documentation of the pre-procedure physical examination. A total of 2.5mg intravenous Versed and a total of 75mcg intravenous Fentanyl in multiple divided doses was utilized for moderate sedation. Sedation start time was 1003 and end time was 1014 for a total of 11 minutes [id number] intra-procedure time. Sedation was administered by a qualified observer Kenyon Butler RN under my supervision with intra-procedure [id number] observation and management throughout the entirety of the procedure. There were no other issues or complications and patient tolerated the procedure well and sedation protocol well and I was present for the entirety. Findings: Elective electrical cardioversion: After confirmation of adequate sedation and persistence of atrial flutter, 150 joules synched biphasic energy x1 was delivered with immediate yarsani of sinus rhythm. Twelve lead EKG was obtained postprocedure confirming sinus rhythm. Complications: None Conclusion: Successful yarsani of sinus rhythm status post 150 joules synched biphasic energy x1. Continue systemic anticoagulation without interruption particular the next 30 days to reduce embolic stroke risk. Continue current medical therapy. Twelve lead EKG in the office as an outpatient in 1 week.
--- NOTE | 2022-07-08 10:15 | ECG_ITS ---
Measurements Intervals [place] Rate: 67 P: 63 SC: 299 QRS: 16 QRSD: 165 T: -1 QT: 493 QTc: 522 Interpretive Statements SINUS RHYTHM WITH FIRST DEGREE AV BLOCK RIGHT BUNDLE BRANCH BLOCK ABNORMAL ECG COMPARED TO ECG 07/08/2022 08:53:31 SINUS RHYTHM NOW PRESENT FIRST DEGREE AV BLOCK NOW PRESENT Electronically Signed On 07-08-2022 12:29:43 CDT by Lionel Chavis D.O.
--- NOTE | 2022-07-08 10:42 | SUR.PHASEII ---
Pt resting in bed, awake and talking. VSS, NAD noted. Dr. Singh at bedside speaking to pt and . Prepare for discharge, continue to monitor post sedation.
== END 2022-07-08 12:15 | disposition home or self-care (01) ==
PROVIDERS: PCP Internal Medicine; Visit Provider Internal Medicine Cardiovascular Disease
PROC: 5A2204Z Restoration of Cardiac Rhythm, Single (ICD-10-PCS; principal; 2022-07-08 10:00)
DX: I48.92 Unspecified atrial flutter (principal); I10 Essential (primary) hypertension; I25.10 Atherosclerotic heart disease of native coronary artery without angina pectoris; E11.9 Type 2 diabetes mellitus without complications; E78.2 Mixed hyperlipidemia; M81.0 Age-related osteoporosis without current pathological fracture; I48.0 Paroxysmal atrial fibrillation; Z95.5 Presence of coronary angioplasty implant and graft; Z79.82 Long term (current) use of aspirin; Z79.01 Long term (current) use of anticoagulants; Z79.84 Long term (current) use of oral hypoglycemic drugs; Z87.891 Personal history of nicotine dependence
CPT/HCPCS: 36415; 80048; 83735; 92960; J2250; J2310; J3010; J7030

== ENCOUNTER 2022-11-18 13:26 | Outpatient (CLI) | payer MEDICARE, SELFPAY ==
[2022-11-18 14:19] LABS: Anion Gap 5 mmol/L (8-16); Blood Urea Nitrogen 14 mg/dL (9-20); Calcium 8.4 mg/dL (8.4-10.2); Carbon Dioxide 31 mmol/L (22-30); Chloride 101 mmol/L (98-107); Estimated Glomerular Filt Rate 58; Glucose 98 mg/dL (65-110); Potassium 4.2 mmol/L (3.4-5.0); Sodium 137 mmol/L (137-145)
== END 2022-11-18 13:27 | disposition home or self-care (01) ==
PROVIDERS: Anesthesiology; PCP Nurse Practitioner; Visit Provider Surgery
DX: E11.9 Type 2 diabetes mellitus without complications (principal); Z01.818 Encounter for other preprocedural examination
CPT/HCPCS: 36415; 80048

== ENCOUNTER 2022-11-22 03:42 | Day surgery (SDC) | payer MEDICARE, SELFPAY ==
[2022-11-18 09:30] VITALS: BMI 27.3
--- NOTE | 2022-11-18 10:02 | PC.NURSE ---
Report to the Outpatient Waiting Room, entrance under the green pavilion located off [facility], at time __8:30AM on date ___11/22/22____. Planned Procedure Time: __10:30AM . Time changes happen often and if your time is changed the preop area will call you the afternoon before. - You and your visitor will be asked to self-screen and do not enter if you have any COVID symptoms. - Only one visitor is requested with a max of two and NO children visitors are allowed at this time. - The patient visitor may be requested to leave or wait in car when not with patient due to distancing restrictions. - A mask is optional within the hospital. Patients may have clear liquids (water, carbonated beverages, clear teas, apple juice) until 3 hours prior to surgery with a maximum of 20 ounces. - No food from midnight until time of surgery Take the following medications with a SIP of water the morning of surgery: ___AMIODARONE Medications to discontinue per physician ___HOLD XERALTO PER MD(PT CALLING DR GRANT/[place] TODAY), HOLD ALL VITAMINS/SUPPLEMENTS 3 DAYS PRE-OP- LAST DOSE 11/18/22__ Please no make-up, nail prydeinig, hairspray, perfume, deodorant, or body powder the day of surgery. No jewelry (including any body piercings) or valuables the day of surgery, leave them at home. Please take a shower or bath the night before, or the morning of, surgery with an antibacterial soap. Wear comfortable, loose fitting clothing. Children are encouraged to wear pajamas. - Jewelry must be removed prior to entering the operating room. Rings and piercings that are not removed may be cut off. - The hospital will not accept responsibility for valuables. - Please leave all valuables, including medications, at home the day of surgery. If you are going home after surgery, a licensed concrete truck driver must drive you home. - NO public transportation without another adult if you receive anesthesia. - We recommend that an adult stay with you for 24 hours following discharge. - We also recommend that you do not drive, make important decision, drink alcoholic beverages, or take any drugs that were not prescribed by your health care provider for at least 24 hours after your discharge time. Follow any additional instructions given to you from your surgeon. HIBICLENS SHOWER MORNING OF SURGERY If you or anyone in your household have experienced Covid symptoms in the past week, please notify your surgeon or the nurse liaison at the phone number below for possible testing. Telephone instructions given to ___PATIENT and asked if any additional questions and then verbalized understanding. Patient advised to call surgeon office or pre surgery nurse liaison [phone] if any additional questions.
--- NOTE | 2022-11-20 14:32 | WPDANESEPPF ---
Anes - Initial Pre Proc Eval Procedure: Operation Date: 11/22/22 07:30 Proposed Procedures p Robotic Laparoscopic Repair Left Inguinal Hernia - Ferny Albarran MD Date/Time: 11/20/22 14:32 Surgeon: Ferny Albarran MD Pre Op Diagnosis: left inguinal hernia Patient Data Age: 82 Gender: M Height: 1.93 m Weight: 102 kg Allergies Allergy/AdvReac Type Severity Reaction Status Date / Time morphine AdvReac Intermediate Agitated Verified 11/22/22 06:24 Home Medications Medication Instructions Recorded Confirmed Type aspirin 81 mg chewable tablet 81 mg PO DAILY 11/05/19 11/18/22 History rivaroxaban 20 mg tablet (Xarelto) 20 mg PO HS 11/05/19 11/18/22 History finasteride 5 mg tablet 5 mg PO DAILY 11/16/19 11/18/22 History metformin 500 mg tablet 500 mg PO BID #180 tabs 04/30/22 11/18/22 Rx simvastatin 20 mg tablet 20 mg PO HS 06/19/22 11/18/22 History lisinopril 20 mg tablet 20 mg PO DAILY #90 tabs 07/29/22 11/18/22 Rx amiodarone 200 mg tablet 200 mg PO QAM 11/04/22 11/18/22 History bisacodyl 5 mg tablet,delayed 5 mg PO HS 11/18/22 11/18/22 History release (Dulcolax (bisacodyl)) docusate sodium 100 mg capsule 100 mg PO HS 11/18/22 11/18/22 History (Colace) glucosamine sulf dipot 2 cap PO QAM 11/18/22 11/18/22 History chlr,msm,chond 550 mg-C 30 mg-anthony 1 mg capsule (Glucosamine Chondroitin) psyllium 1 packet PO DAILY 11/18/22 11/18/22 History Patient hx anesthesia problems: none Family hx anesthesia problems: none Results Review: All pre-operative results and documents have been reviewed as part of the pre-operative evaluation. [facility] Past Medical History Medical History Anticoagulant long-term use Arthritis Atherosclerotic heart disease of [place] coronary artery with other forms of angina pectoris Atrial fibrillation Atrial flutter COVID-19 Essential (primary) hypertension Mixed hyperlipidemia Osteoporosis Paroxysmal atrial fibrillation Type 2 diabetes mellitus with hyperglycemia Surgical History Surgical History H/O hernia repair right inguinal hernia repair, Dr. Albarran History of cholecystectomy History of parathyroid surgery History of prostate surgery Family History Family History Mother Family history of glaucoma Family history of elevated blood lipids Hypertension Carcinoma of colon Sibling Hypertension Family history of elevated blood lipids Father Family history of elevated blood lipids Hypertension Other Family history of cardiovascular disease Family history of malignant neoplasm Social History Social History Smoking packs per day: 0.2 Smoking cigarettes per day: 4.0 Years smoked: 10 Smoking pack-years: 2.00 Smoking status: Former smoker Tobacco type: cigarettes Second hand tobacco smoke exposure: No Smoking end date: 04/26/75 Additional smoking assessment comments: Pt. quit 60 years ago. Alcohol intake: current Drinks per week: 4 Alcohol use details: beer Substance use: never Substance use type: does not use Living arrangements: with family Additional living arrangements comments: Occupation/Education: retired Gender identity (if verbalized by the patient): Male Spiritual care concerns: No Anes - Eval Final PreProcedure Day of Procedure 11/20/22 14:32 Patient weight: overweight Heart: regular rate and rhythm Lungs: clear to auscultation Airway: Mallampati scale class III Neurological: alert and oriented Last oral intake: >/= 8 hours ASA classification: III Emergent: no Anesthetic plan: proceed Anesthesia type and monitoring: general ETT and standard monitoring Results Review: All pre-operative results and documents have been reviewed as part of the pre-operative sylwai
[2022-11-22] VITALS (9 sets, daily range): BP systolic 113–142; BP diastolic 55–67; PULSE 55–61; RESP 12–16; TEMP 36.3–36.8; O2SAT 94–99
[2022-11-22] MEDS: ACETAMINOPHEN 500 MG TABLET 1000 MG PO (06:44)
[2022-11-22] MEDS: LACTATED RINGERS 1,000 ML 30 ML IV CONT ×2 (06:57→09:19)
[2022-11-22] MEDS: KETOROLAC 15 MG/ML VIAL (*BKC) IV PUSH (06:57)
--- NOTE | 2022-11-22 07:07 | WPDHPUPDATE1 ---
History and Physical Update Update Date/Time: 11/22/22 07:07 History and Physical has been reviewed, including an updated exam of the patient. There are NO changes in the patient's condition. Risks, benefits, and alternatives have been discussed and questions answered. Patient agrees to proceed with procedure.
[2022-11-22 07:15] LABS: Glucose Point of Care 120 mg/dl (65-105)
[2022-11-22] MEDS: ceFAZolin 2 GM/D5W 50 ML 2 GM/50 ML BAG IVPB (07:28)
[2022-11-22] MEDS: BUPIVACAINE/EPINEPHRINE 0.5% 10 ML VIAL 30 ML INFILTRATE (08:03)
--- NOTE | 2022-11-22 09:41 | W.PM.PROC2 ---
Procedure Note - Detailed Date of Procedure 11/22/22 Pre-op Diagnosis left inguinal hernia Post-op Diagnosis Same Procedure Performed Robotic laparoscopic repair of left inguinal hernia with mesh Surgeon Ferny Albarran MD [employer] Anesthesia General and Local (0.5% Marcaine with epinephrine) Indications Patient has noticed a bulge with occasional discomfort in the left groin. Exam showed a left inguinal hernia. He is taken to surgery now for robotic assisted laparoscopic left inguinal hernia repair. Findings He had a large direct hernia defect. No indirect hernia was noted. Description of Procedure Patient was taken to surgery and induced into general anesthesia. The abdomen is prepped and draped. The proposed laparoscopic trocar sites were marked on the skin. Local was infiltrated into each site. Incision was made in the left sided trocar. A 5 mm applied Medical optical trocar was passed into the opening. It was carefully advanced into the peritoneal cavity. The abdomen insufflated appropriately. Under direct visualization 2 8 mm robotic ports were placed at roughly the same level of the abdominal wall as the initial port. We then changed our camera position and placed an 8 mm robotic port in the left lateral position. The robotic arms were then brought into the field and docked appropriately. The site of the surgery was targeted. The surgeon then left the sterile field and went to the console. The hernia was easily found. The peritoneum was opened laterally and a peritoneal flap was created anterior to the area of the hernia and the other groin structures. This was continued over to the median umbilical ligament. This flap was further created dividing the area older tissue and taking only peritoneum down on each side. The hernia sac was reduced and taken down with the peritoneal flap. Once we had created the flap and dissected it off the groin structures such that we were approximately for 4 cm posterior to the lower edge of the hernia, we proceeded with placement of the mesh. A large 3DMax piece of mesh was chosen. It was placed into the abdomen and then carefully positioned over the hernia defect and the other groin structures. Once in position, 3 3-0 Vicryl sutures were used to secure the mesh. One was very medial in the pubic tubercle. Two others were placed high anterior such that the mesh was loosely held in place by the suture. We then closed the flap using 2 0 V lock suture starting medially and proceeding laterally to close the peritoneal flap entirely. There was 1 small hole in the flap. This was closed with a [id number] mattress suture of 3-0 Vicryl. All looked good. There was minimal blood loss. We evacuated CO2, undocked the robot and removed the trocars. Skin wounds were closed with subcuticular 3-0 Monocryl skin suture. The wounds were dressed with Exofin surgical adhesive. Patient was awakened and taken to recovery in good condition. Sponge and needle counts were correct x2. Implants 17 x 12 cm 3DMax mesh Estimated Blood Loss -5.0 Drains No Packing No Pathology None sent Complications No immediate complications Condition Stable Disposition PACU [facility] Billing Surgery - Charge Forward: Surgery Billing (Robotic assisted laparoscopic left inguinal hernia repair with mesh)
[2022-11-22 09:48] LABS: Glucose Point of Care 166 mg/dl (65-105)
--- NOTE | 2022-11-22 09:55 | SUR.PHASEI ---
0954: Simple mask removed.
== END 2022-11-22 11:27 | disposition home or self-care (01) ==
PROVIDERS: PCP Nurse Practitioner; Visit Provider Surgery
PROC: 8E0Y4CZ Robotic Assisted Procedure of Lower Extremity, Percutaneous Endoscopic Approach (ICD-10-PCS; CPT 49650; principal; 2022-11-22 07:30)
DX: K40.90 Unilateral inguinal hernia, without obstruction or gangrene, not specified as recurrent (principal); I25.10 Atherosclerotic heart disease of native coronary artery without angina pectoris; I10 Essential (primary) hypertension; E78.2 Mixed hyperlipidemia; E11.9 Type 2 diabetes mellitus without complications; I48.0 Paroxysmal atrial fibrillation; M81.0 Age-related osteoporosis without current pathological fracture; Z79.82 Long term (current) use of aspirin; Z79.01 Long term (current) use of anticoagulants; Z79.84 Long term (current) use of oral hypoglycemic drugs; Z87.891 Personal history of nicotine dependence
CPT/HCPCS: 49650; S2900; 82948; A9270; C1781; J0690; J1100; J1885; J2704; J2710; J3010; J7030; J7120

== ENCOUNTER 2023-02-28 03:44 | Day surgery (SDC) | payer MEDICARE, SELFPAY ==
[2023-02-21 09:59] VITALS: BMI 27.3
[2023-02-28 09:47] VITALS: BP 163/80; PULSE 61; RESP 20; TEMP 36.2; O2SAT 100
--- NOTE | 2023-02-28 10:02 | WPDANESEPPF ---
Anes - Initial Pre Proc Eval Procedure: Operation Date: 02/28/23 10:00 Proposed Procedures p Screening Colonoscopy - Oliverio Loera MD Date/Time: 02/28/23 10:02 Surgeon: Oliverio Loera MD Pre Op Diagnosis: Hx of colon polyps; family hx of colon polyps Patient Data Age: 83 Gender: M Height: 1.93 m Weight: 96.5 kg Last Vital Signs Temp 97.2 F L 02/28/23 09:47 Pulse 61 02/28/23 09:47 Resp 20 02/28/23 09:47 BP 163/80 H 02/28/23 09:47 Pulse Ox 100 02/28/23 09:47 O2 Del Method Room Air 02/28/23 09:47 Allergies Allergy/AdvReac Type Severity Reaction Status Date / Time morphine AdvReac Intermediate Agitated Verified 02/28/23 09:51 Home Medications Medication Instructions Recorded Confirmed Type aspirin 81 mg chewable tablet 81 mg PO DAILY 11/05/19 02/28/23 History rivaroxaban 20 mg tablet (Xarelto) 20 mg PO HS 11/05/19 02/28/23 History finasteride 5 mg tablet 5 mg PO DAILY 11/16/19 02/28/23 History metformin 500 mg tablet 500 mg PO BID #180 tabs 04/30/22 02/28/23 Rx simvastatin 20 mg tablet 20 mg PO HS 06/19/22 02/28/23 History lisinopril 20 mg tablet 20 mg PO DAILY #90 tabs 07/29/22 02/28/23 Rx amiodarone 200 mg tablet 200 mg PO QAM 11/04/22 02/28/23 History bisacodyl 5 mg tablet,delayed 5 mg PO HS 11/18/22 02/28/23 History release (Dulcolax (bisacodyl)) glucosamine sulf dipot 2 cap PO QAM 11/18/22 02/28/23 History chlr,msm,chond 550 mg-C 30 mg-anthony 1 mg capsule (Glucosamine Chondroitin) psyllium 1 packet PO DAILY 11/18/22 02/28/23 History Patient hx anesthesia problems: none Family hx anesthesia problems: none Results Review: All pre-operative results and documents have been reviewed as part of the pre-operative evaluation. [facility] Past Medical History Medical History Anticoagulant long-term use Arthritis Atherosclerotic heart disease of [place] coronary artery with other forms of angina pectoris Atrial fibrillation Atrial flutter COVID-19 Essential (primary) hypertension Mixed hyperlipidemia Osteoporosis Paroxysmal atrial fibrillation Type 2 diabetes mellitus with hyperglycemia Surgical History Surgical History H/O hernia repair 11/22/2022 - Robotic laparoscopic repair of left inguinal hernia with mesh History of cholecystectomy History of parathyroid surgery History of prostate surgery Hx of inguinal hernia repair robotic laparoscopic repair left inguinal hernia with mesh 11/22/2022 Family History Family History Mother Family history of glaucoma Family history of elevated blood lipids Hypertension Carcinoma of colon Sibling Hypertension Family history of elevated blood lipids Father Family history of elevated blood lipids Hypertension Other Family history of cardiovascular disease Family history of malignant neoplasm Social History Social History Smoking packs per day: 0.2 Smoking cigarettes per day: 4.0 Years smoked: 10 Smoking pack-years: 2.00 Smoking status: Former smoker Tobacco type: cigarettes Second hand tobacco smoke exposure: No Smoking end date: 04/26/75 Additional smoking assessment comments: Pt. quit 60 years ago. Alcohol intake: current Drinks per week: 4 Alcohol use details: beer Substance use: never Substance use type: does not use Living arrangements: with family Additional living arrangements comments: Occupation/Education: retired Gender identity (if verbalized by the patient): Male Spiritual care concerns: No Anes - Eval Final PreProcedure Day of Procedure 02/28/23 10:02 Patient weight: normal Heart: regular rate and rhythm Lungs: clear to auscultation Airway: Mallampati scale class II Neurological: alert and oriented [place]
[2023-02-28] MEDS: LACTATED RINGERS 1,000 ML 150 ML IV CONT (10:10)
[2023-02-28 10:12] LABS: Glucose Point of Care 113 mg/dl (65-105)
--- NOTE | 2023-02-28 10:16 | PM.HPGS ---
History of Present Illness History of Present Illness Consent: Risks, benefits, and alternatives have been discussed and questions answered. Patient agrees to proceed with procedure. Chief complaint: Hx of colon polyps; family hx of colon polyps Narrative: Rolf Arechiga is a 83 year old male Presents for screening colonoscopy. Patient has had colon polyps in the past. His mother has had colon polyps may have had colon cancer. Patient currently has significant difficulties with constipation. He takes multiple laxatives including MiraLax supplemented with Andrews lacks another suppositories on a frequent basis. He reports this worsening when started on amiodarone. Patient does have an underlying history of diabetes as well. Family history is as stated. Patient presents today for colonoscopy. Review of Systems Review of Systems: Review of systems noncontributory. COUNT INCLUDES THE [facility] Past Medical History Medical History Anticoagulant long-term use Arthritis Atherosclerotic heart disease of [place] coronary artery with other forms of angina pectoris Atrial fibrillation Atrial flutter COVID-19 Essential (primary) hypertension Mixed hyperlipidemia Osteoporosis Paroxysmal atrial fibrillation Type 2 diabetes mellitus with hyperglycemia Surgical History Surgical History H/O hernia repair 11/22/2022 - Robotic laparoscopic repair of left inguinal hernia with mesh History of cholecystectomy History of parathyroid surgery History of prostate surgery Hx of inguinal hernia repair robotic laparoscopic repair left inguinal hernia with mesh 11/22/2022 Family History Family History Mother Family history of glaucoma Family history of elevated blood lipids Hypertension Carcinoma of colon Sibling Hypertension Family history of elevated blood lipids Father Family history of elevated blood lipids Hypertension Other Family history of cardiovascular disease Family history of malignant neoplasm Social History Social History Smoking packs per day: 0.2 Smoking cigarettes per day: 4.0 Years smoked: 10 Smoking pack-years: 2.00 Smoking status: Former smoker Tobacco type: cigarettes Second hand tobacco smoke exposure: No Smoking end date: 04/26/75 Additional smoking assessment comments: Pt. quit 60 years ago. Alcohol intake: current Drinks per week: 4 Alcohol use details: beer Substance use: never Substance use type: does not use Living arrangements: with family Additional living arrangements comments: Occupation/Education: retired Gender identity (if verbalized by the patient): Male Spiritual care concerns: No Meds Home Medications and Allergies Home Medications Medication Instructions Recorded Confirmed Type aspirin 81 mg chewable tablet 81 mg PO DAILY 11/05/19 02/28/23 History rivaroxaban 20 mg tablet (Xarelto) 20 mg PO HS 11/05/19 02/28/23 History finasteride 5 mg tablet 5 mg PO DAILY 11/16/19 02/28/23 History metformin 500 mg tablet 500 mg PO BID #180 tabs 04/30/22 02/28/23 Rx simvastatin 20 mg tablet 20 mg PO HS 06/19/22 02/28/23 History lisinopril 20 mg tablet 20 mg PO DAILY #90 tabs 07/29/22 02/28/23 Rx amiodarone 200 mg tablet 200 mg PO QAM 11/04/22 02/28/23 History bisacodyl 5 mg tablet,delayed 5 mg PO HS 11/18/22 02/28/23 History release (Dulcolax (bisacodyl)) glucosamine sulf dipot 2 cap PO QAM 11/18/22 02/28/23 History chlr,msm,chond 550 mg-C 30 mg-anthony 1 mg capsule (Glucosamine Chondroitin) psyllium 1 packet PO DAILY 11/18/22 02/28/23 History Allergies Allergy/AdvReac Type Severity Reaction Status Date / Time morphine AdvReac Intermediate Agitated Verified 02/28/23 09:51 Vital Signs Vital Signs - 24 h
--- NOTE | 2023-02-28 10:57 | SUR.OPER ---
Multiple colon polyps removed via hot snare. All polyps in one specimen container. At least one polyp was not obtained from transverse colon. Dr. Luz Maria dent.
[2023-02-28 10:59] VITALS: BP 143/78; PULSE 56; RESP 19; O2SAT 99
[2023-02-28 11:09] VITALS: BP 137/77; PULSE 57; RESP 21; O2SAT 99
[2023-02-28 11:19] VITALS: BP 139/77; PULSE 57; RESP 14; O2SAT 99
== END 2023-02-28 11:35 | disposition home or self-care (01) ==
PROVIDERS: PCP Family Medicine; Visit Provider Internal Medicine Gastroenterology
PROC: 0DJD8ZZ Inspection of Lower Intestinal Tract, Via Natural or Artificial Opening Endoscopic (ICD-10-PCS; CPT 45378; principal; 2023-02-28 10:00)
DX: Z12.11 Encounter for screening for malignant neoplasm of colon (principal); K64.8 Other hemorrhoids; K57.30 Diverticulosis of large intestine without perforation or abscess without bleeding; D12.2 Benign neoplasm of ascending colon; D12.3 Benign neoplasm of transverse colon; D12.4 Benign neoplasm of descending colon; Z83.71 Family history of colonic polyps; K59.00 Constipation, unspecified; I25.10 Atherosclerotic heart disease of native coronary artery without angina pectoris; I10 Essential (primary) hypertension; E78.2 Mixed hyperlipidemia; I48.0 Paroxysmal atrial fibrillation; M81.0 Age-related osteoporosis without current pathological fracture; E11.9 Type 2 diabetes mellitus without complications; Z87.891 Personal history of nicotine dependence; Z79.82 Long term (current) use of aspirin; Z79.01 Long term (current) use of anticoagulants; Z79.84 Long term (current) use of oral hypoglycemic drugs
CPT/HCPCS: 45385; 82948; 88305; J2704; J7120

== ENCOUNTER 2023-03-01 09:14 | Emergency (ER) | payer MEDICARE, SELFPAY ==
[2023-03-01 09:25] VITALS: BP 148/67; PULSE 65; RESP 16; TEMP 36.6; O2SAT 98
--- NOTE | 2023-03-01 10:01 | ED.URI ---
HPI - URI/Sore Throat General Chief Complaint: Upper Respiratory Infection Stated Complaint: drainage, cough, watery eyes Time Seen by Provider: 03/01/23 10:19 Source: patient and RN notes reviewed Mode of arrival: ambulatory Limitations: no limitations History of Present Illness HPI Narrative: 83-year-old male presents with concern for watery eyes, cough, nasal drainage. Reports constant clear nasal drainage. He reports symptoms started about a week ago, he has says they seem to be getting better but he still is having constant runny nose and sneezing. Reports he is taking Zyrtec daily, took a Benadryl this morning. He denies facial pain, pressure, fever, aches, chills, sweats. Reports mild cough MD elicited complaint: rhinorrhea Related Data Home Medications Medication Instructions Recorded Confirmed aspirin 81 mg chewable tablet 81 mg PO DAILY 11/05/19 03/01/23 rivaroxaban 20 mg tablet (Xarelto) 20 mg PO HS 11/05/19 03/01/23 finasteride 5 mg tablet 5 mg PO DAILY 11/16/19 03/01/23 simvastatin 20 mg tablet 20 mg PO HS 06/19/22 03/01/23 amiodarone 200 mg tablet 200 mg PO QAM 11/04/22 03/01/23 bisacodyl 5 mg tablet,delayed 5 mg PO HS 11/18/22 03/01/23 release (Dulcolax (bisacodyl)) glucosamine sulf dipot 2 cap PO QAM 11/18/22 03/01/23 chlr,msm,chond 550 mg-C 30 mg-anthony 1 mg capsule (Glucosamine Chondroitin) psyllium 1 packet PO DAILY 11/18/22 03/01/23 Allergies Allergy/AdvReac Type Severity Reaction Status Date / Time morphine AdvReac Intermediate Agitated Verified 02/28/23 09:51 Review of Systems Review of Systems: CONSTITUTIONAL: Denies malaise, chills, sweats, or fever. EYES: Denies visual changes, redness, or discharge. ENT: Reports rhinorrhea, congestion, sneezing. Denies sinus pain, otalgia and sore throat. CARDIOVASCULAR: Denies chest pain, palpitations, or edema. RESPIRATORY: Reports cough. Denies dyspnea. GASTROINTESTINAL: Denies abdominal pain, nausea, vomiting, diarrhea SKIN: Denies rash or itching. MUSCULOSKELETAL: Denies myalgia. NEUROLOGIC: Denies headache. All systems reviewed & are unremarkable except as noted in HPI and below PMFSH Past Medical History Medical History Anticoagulant long-term use Arthritis Atherosclerotic heart disease of [place] coronary artery with other forms of angina pectoris Atrial fibrillation Atrial flutter COVID-19 Essential (primary) hypertension Mixed hyperlipidemia Osteoporosis Paroxysmal atrial fibrillation Type 2 diabetes mellitus with hyperglycemia Surgical History Surgical History H/O hernia repair 11/22/2022 - Robotic laparoscopic repair of left inguinal hernia with mesh History of cholecystectomy History of parathyroid surgery History of prostate surgery Hx of inguinal hernia repair robotic laparoscopic repair left inguinal hernia with mesh 11/22/2022 Family History Family History Mother Family history of glaucoma Family history of elevated blood lipids Hypertension Carcinoma of colon Sibling Hypertension Family history of elevated blood lipids Father Family history of elevated blood lipids Hypertension Other Family history of cardiovascular disease Family history of malignant neoplasm Social History Social History Smoking packs per day: 0.2 Smoking cigarettes per day: 4.0 Years smoked: 10 Smoking pack-years: 2.00 Smoking status: Former smoker Tobacco type: cigarettes Second hand tobacco smoke exposure: No Smoking end date: 04/26/75 Additional smoking assessment comments: Pt. quit 60 years ago. Alcohol intake: current Drinks per week: 4 Alcohol use details: beer Substance use: never Substance use type: does not use Living arrangements: with family Addit
== END 2023-03-01 10:32 | disposition home or self-care (01) ==
PROVIDERS: Emergency Provider Nurse Practitioner
DX: J30.9 Allergic rhinitis, unspecified (principal); I25.10 Atherosclerotic heart disease of native coronary artery without angina pectoris; I10 Essential (primary) hypertension; E11.9 Type 2 diabetes mellitus without complications; I48.0 Paroxysmal atrial fibrillation; Z79.82 Long term (current) use of aspirin; Z79.01 Long term (current) use of anticoagulants; Z87.891 Personal history of nicotine dependence
CPT/HCPCS: 99213; G0463

== ENCOUNTER 2023-04-24 07:50 | Outpatient (CLI) | payer MEDICARE, SELFPAY ==
--- NOTE | 2023-04-24 08:30 | PCRCNOTE ---
PT CAME IN FOR PFT TESTING AND WAS UNABLE TO PERFORM. DESPITE MANY TRIAL AND GOOD COACHING PT WAS UNABLE TO GET ACCEPTABLE AND REPRODUCIBLE RESULTS. DR GRANT'S OFFICE NOTIFIED.
== END 2023-04-24 07:51 | disposition home or self-care (01) ==
LOC: ANHPFT 07:50
PROVIDERS: Visit Provider Internal Medicine Cardiovascular Disease
DX: I48.0 Paroxysmal atrial fibrillation (principal); Z79.899 Other long term (current) drug therapy; Z91.89 Other specified personal risk factors, not elsewhere classified; Z53.8 Procedure and treatment not carried out for other reasons
CPT/HCPCS: 99199

== ENCOUNTER 2023-05-14 01:47 | Day surgery (SDC) | payer MEDICARE, SELFPAY ==
[2023-05-14] VITALS (9 sets, daily range): BP systolic 122–154; BP diastolic 70–91; PULSE 58–70; RESP 13–18; TEMP 36.4; O2SAT 96–100; BMI 26.3
--- NOTE | 2023-05-14 08:30 | ECG_ITS ---
Measurements Intervals [place] Rate: 58 P: 66 SD: 296 QRS: 17 QRSD: 172 T: -1 QT: 507 QTc: 501 Interpretive Statements SINUS BRADYCARDIA WITH FIRST DEGREE AV BLOCK RIGHT BUNDLE BRANCH BLOCK ABNORMAL ECG COMPARED TO ECG 05/14/2023 08:47:21 SINUS BRADYCARDIA NOW PRESENT FIRST DEGREE AV BLOCK NOW PRESENT Electronically Signed On 05-14-2023 10:12:37 CDT by Lionel Chavis D.O.
[2023-05-14 09:16] LABS: Anion Gap 4 mmol/L (8-16); Blood Urea Nitrogen 17 mg/dL (9-20); Calcium 8.3 mg/dL (8.4-10.2); Carbon Dioxide 29 mmol/L (22-30); Chloride 103 mmol/L (98-107); Estimated CRCL calculation 60 ml/min; Estimated Glomerular Filt Rate > 60; Glucose 124 mg/dL (65-110); Magnesium 1.9 mg/dL (1.6-2.3); Potassium 4.1 mmol/L (3.4-5.0); Sodium 136 mmol/L (137-145)
--- NOTE | 2023-05-14 09:46 | PM.IMHP ---
H&P: HPI History of Present Illness Date/Time: 05/14/23 09:46 Chief Complaint: Atrial fibrillation Narrative: Patient is an 83 year old male with atrial fibrillation who presents for an outpatient elective electrical cardioversion. Has not missed any doses of Xarelto. Follows with Dr. Singh in clinic. Review of Systems Review of Systems: All systems reviewed & are unremarkable except as noted in HPI and below (HPI) [facility] Past Medical History Medical History Anticoagulant long-term use Arthritis Atherosclerotic heart disease of [place] coronary artery with other forms of angina pectoris Atrial fibrillation Atrial flutter COVID-19 Essential (primary) hypertension Mixed hyperlipidemia Osteoporosis Paroxysmal atrial fibrillation Type 2 diabetes mellitus with hyperglycemia Surgical History Surgical History H/O hernia repair 11/22/2022 - Robotic laparoscopic repair of left inguinal hernia with mesh History of cholecystectomy History of parathyroid surgery History of prostate surgery Hx of inguinal hernia repair robotic laparoscopic repair left inguinal hernia with mesh 11/22/2022 Family History Family History Mother Family history of glaucoma Family history of elevated blood lipids Hypertension Carcinoma of colon Sibling Hypertension Family history of elevated blood lipids Father Family history of elevated blood lipids Hypertension Other Family history of cardiovascular disease Family history of malignant neoplasm Social History Social History Smoking packs per day: 0.2 Smoking cigarettes per day: 4.0 Years smoked: 25 Smoking pack-years: 5.00 Smoking status: Former smoker Tobacco type: cigarettes Second hand tobacco smoke exposure: No Smoking end date: 04/26/75 Additional smoking assessment comments: Pt. quit 60 years ago. Alcohol intake: current Drinks per week: 4 Alcohol use details: beer Substance use: never Substance use type: does not use Last use: 10/27/63 Living arrangements: with family Additional living arrangements comments: Occupation/Education: retired Gender identity (if verbalized by the patient): Male Spiritual care concerns: No Meds Home Medications and Allergies Home Medications Medication Instructions Recorded Confirmed Type aspirin 81 mg chewable tablet 81 mg PO DAILY 11/05/19 05/14/23 History rivaroxaban 20 mg tablet (Xarelto) 20 mg PO HS 11/05/19 05/13/23 History finasteride 5 mg tablet 5 mg PO DAILY 11/16/19 05/14/23 History metformin 500 mg tablet 500 mg PO BID #180 tabs 04/30/22 05/13/23 Rx simvastatin 20 mg tablet 20 mg PO HS 06/19/22 05/13/23 History lisinopril 20 mg tablet 20 mg PO DAILY #90 tabs 07/29/22 05/14/23 Rx amiodarone 200 mg tablet 200 mg PO QAM 11/04/22 05/14/23 History bisacodyl 5 mg tablet,delayed 5 mg PO HS 11/18/22 05/13/23 History release (Dulcolax (bisacodyl)) glucosamine sulf dipot 2 cap PO QAM 11/18/22 05/14/23 History chlr,msm,chond 550 mg-C 30 mg-anthony 1 mg capsule (Glucosamine Chondroitin) psyllium 1 packet PO DAILY 11/18/22 05/14/23 History Allergies Allergy/AdvReac Type Severity Reaction Status Date / Time morphine AdvReac Intermediate Agitated Verified 05/14/23 08:42 Vital Signs Vital Signs - 24 hr 05/14/23 08:45 05/14/23 09:38 05/14/23 09:43 Temperature 36.4 C Pulse Rate 63 70 60 Respiratory Rate 14 16 16 Blood Pressure 137/77 135/86 136/86 Pulse Oximetry 99 99 99 Oxygen Delivery Room Air Nasal Cannula Nasal Cannula Oxygen Flow Rate 2 2 Exam Const: General: comfortable and no acute distress HENMT: Mouth: Yes moist mucous membranes Eyes: General: appearance normal, both eyes and all related structures Sclera: sclerae normal Neck: Neck: loera
--- NOTE | 2023-05-14 09:49 | WPDMODSED ---
Moderate Sedation Note-Pt Data Patient Data Diagnosis: Atrial fibrillation Present Complaint: Atrial fibrillation Procedure to be performed/Plan: DCCV Allergies Allergy/AdvReac Type Severity Reaction Status Date / Time morphine AdvReac Intermediate Agitated Verified 05/14/23 08:42 Home Medications Medication Instructions Recorded Confirmed Type aspirin 81 mg chewable tablet 81 mg PO DAILY 11/05/19 05/14/23 History rivaroxaban 20 mg tablet (Xarelto) 20 mg PO HS 11/05/19 05/13/23 History finasteride 5 mg tablet 5 mg PO DAILY 11/16/19 05/14/23 History metformin 500 mg tablet 500 mg PO BID #180 tabs 04/30/22 05/13/23 Rx simvastatin 20 mg tablet 20 mg PO HS 06/19/22 05/13/23 History lisinopril 20 mg tablet 20 mg PO DAILY #90 tabs 07/29/22 05/14/23 Rx amiodarone 200 mg tablet 200 mg PO QAM 11/04/22 05/14/23 History bisacodyl 5 mg tablet,delayed 5 mg PO HS 11/18/22 05/13/23 History release (Dulcolax (bisacodyl)) glucosamine sulf dipot 2 cap PO QAM 11/18/22 05/14/23 History chlr,msm,chond 550 mg-C 30 mg-anthony 1 mg capsule (Glucosamine Chondroitin) psyllium 1 packet PO DAILY 11/18/22 05/14/23 History Current Medications: Active Medications Sodium Chloride (Normal Saline Iv) 1,000 mls @ 30 mls/hr IV CONT .Q24H RICKY Sedation/Anesthesia: No previous sedation/anesthesia problems (including family history). [facility] Past Medical History Medical History Anticoagulant long-term use Arthritis Atherosclerotic heart disease of [place] coronary artery with other forms of angina pectoris Atrial fibrillation Atrial flutter COVID-19 Essential (primary) hypertension Mixed hyperlipidemia Osteoporosis Paroxysmal atrial fibrillation Type 2 diabetes mellitus with hyperglycemia Surgical History Surgical History H/O hernia repair 11/22/2022 - Robotic laparoscopic repair of left inguinal hernia with mesh History of cholecystectomy History of parathyroid surgery History of prostate surgery Hx of inguinal hernia repair robotic laparoscopic repair left inguinal hernia with mesh 11/22/2022 Family History Family History Mother Family history of glaucoma Family history of elevated blood lipids Hypertension Carcinoma of colon Sibling Hypertension Family history of elevated blood lipids Father Family history of elevated blood lipids Hypertension Other Family history of cardiovascular disease Family history of malignant neoplasm Social History Social History Smoking packs per day: 0.2 Smoking cigarettes per day: 4.0 Years smoked: 25 Smoking pack-years: 5.00 Smoking status: Former smoker Tobacco type: cigarettes Second hand tobacco smoke exposure: No Smoking end date: 04/26/75 Additional smoking assessment comments: Pt. quit 60 years ago. Alcohol intake: current Drinks per week: 4 Alcohol use details: beer Substance use: never Substance use type: does not use Last use: 10/27/63 Living arrangements: with family Additional living arrangements comments: Occupation/Education: retired Gender identity (if verbalized by the patient): Male Spiritual care concerns: No Mod Sed Physical Exam Physical Exam Pre Procedural Exam: Normal: Appearance, Lungs, Heart Rate, Neuro Exam, Extremities and Skin and Variation: Heart Rhythm (Irregularly irregular ) Hours since solid foods: 12 Hours since liquid intake: 8 Mallampati Classification: class III Internal Medicine - PN: Obj Da Vital Signs Vital Signs: Vital Signs - 24 hr 05/14/23 08:45 05/14/23 09:38 05/14/23 09:43 Temperature 36.4 C Pulse Rate 63 70 60 Respiratory Rate 14 16 16 Blood Pressure 137/77 135/86 136/86 Pulse Oximetry 99 99 99 Oxygen Delivery Room Air Nasal Cannula Nasal Cannula Oxygen Flow
--- NOTE | 2023-05-14 09:50 | P.PCNCVR_ITS ---
Cardioversion Cardioversion Date of procedure: 05/14/23 Procedure: Cardioversion Pre-op diagnosis: Atrial fibrillation Post-op diagnosis: Other (Sinus rhythm ) Indications: Symptomatic atrial fibrillation Description of procedure: Written informed consent obtained. Defibrillator pads placed in an anterior posterior position. Patient was hemodynamically monitored throughout the procedure. Time out performed by BERTRAM Joiner. I administered Propofol 40mg IV. Once patient was adequately sedated, synchronized cardioversion was performed wi th 1 shock at 250 joules with episcopalian of sinus rhythm. Patient tolerated procedure well without any complications. Procedure start time: 09:40 Procedure end time: 09:45 Total procedure time: 5 minutes Sedation: Total of Propofol 40mg IV was administered Findings: Successful episcopalian of sinus rhythm with 1 shock at 250 joules. Conclusion: Successful episcopalian of sinus rhythm with 1 shock at 250 joules.
--- NOTE | 2023-05-14 10:00 | ECG_ITS ---
Measurements Intervals [place] Rate: 66 P: MS: 0 QRS: 47 QRSD: 163 T: 62 QT: 484 QTc: 508 Interpretive Statements ATRIAL FLUTTER/TACHYCARDIA WITH NORMAL VENTRICULAR RESPONSE RIGHT BUNDLE BRANCH BLOCK ABNORMAL ECG COMPARED TO ECG 07/08/2022 10:18:12 ATRIAL FLUTTER NOW PRESENT Electronically Signed On 05-14-2023 9:13:45 CDT by Lionel Chavis D.O.
== END 2023-05-14 10:45 | disposition home or self-care (01) ==
PROVIDERS: PCP Family Medicine; Visit Provider Internal Medicine
PROC: 5A2204Z Restoration of Cardiac Rhythm, Single (ICD-10-PCS; principal; 2023-05-14 10:00)
DX: I48.0 Paroxysmal atrial fibrillation (principal); I25.118 Atherosclerotic heart disease of native coronary artery with other forms of angina pectoris; I10 Essential (primary) hypertension; E78.2 Mixed hyperlipidemia; E11.9 Type 2 diabetes mellitus without complications; M81.0 Age-related osteoporosis without current pathological fracture; Z79.82 Long term (current) use of aspirin; Z79.01 Long term (current) use of anticoagulants; Z87.891 Personal history of nicotine dependence
CPT/HCPCS: 36415; 80048; 83735; 92960; J2704; J7030

== ENCOUNTER 2023-06-25 09:54 | Outpatient (CLI) | payer MEDICARE, SELFPAY ==
--- NOTE | 2023-06-25 10:52 | PCRCNOTE ---
PT CAME IN FOR PFT FOR SECOND TIME AND WAS STILL UNABLE TO FOLLOW DIRECTIONS AND PERFORM TESTING. I WAS ABLE TO GET 2 ACCEPTABLE DIFFUSION RESULTS. UNABLE TO OBTAIN ANY FLOW VOLUME LOOPS OR PLETHYSMOGRAPHY DESPITE MANY ATTEMPTS AND 3 DIFFERENT TECH INSTRUCTING.
--- NOTE | 2023-06-25 14:54 | WPDPFTINT ---
PFT Procedure Performed PFT Procedure Performed Diffusing Cap (DLCO) PFT Interpretation This is a pulmonary function test with diffusing capacity. The test was performed and results interpreted in accordance with the 2019 and 2005 ATS/ERS Task Force guidelines respectively using the Global Lung Function Initiative-2012 reference equations. The patient came in for a second time and was still unable to follow directions and perform spirometry or plethysmography testing despite many attempts from different technicians. Two acceptable diffusion results were obtained. Findings: Diffusing capacity: The diffusing capacity unadjusted for hemoglobin and carboxyhemoglobin is 27.5, 108% predicted. The diffusing capacity adjusted for alveolar volume is 3.64, 115% predicted. Impression: The diffusing capacity is normal. The patient was unable to perform spirometry or plethysmography. There are no prior studies for comparison
== END 2023-06-25 09:55 | disposition home or self-care (01) ==
LOC: ANHPFT 09:55
PROVIDERS: PCP Family Medicine; Visit Provider Internal Medicine Cardiovascular Disease
DX: R06.02 Shortness of breath (principal)
CPT/HCPCS: 94375; 94726; 94729

== ENCOUNTER 2024-10-12 09:59 | Observation (INO) | payer OTHER, SELFPAY ==
[2024-10-12] VITALS (11 sets, daily range): BP systolic 108–163; BP diastolic 62–93; PULSE 60–68; RESP 12–18; TEMP 36.3–36.7; O2SAT 95–98; BMI 27.8
--- NOTE | ~2024-10-12 | MR_ITS ---
EXAMINATION: MR brain/brain stem wo/w con DATE: 10/13/2024 09:44 INDICATION: Seizure TECHNIQUE: Magnetic resonance imaging (MRI) of the brain and brainstem was performed without and with 20 mL Multihance intravenous contrast. Sequences included sagittal and axial T1-weighted SE, axial d iffusion-weighted FS SE, axial 3D SWAN, axial T2-weighted FLAIR, and axial T2-weighted FSE. Postcontr ast axial and coronal T1-weighted SE was obtained. Apparent diffusion coefficient (ADC) maps were cre ated. COMPARISON: Head CT and CT angiogram dated 10/12/2024 FINDINGS: There are no areas of restricted diffusion to suggest acute infarction. No intracranial hemorrhage or abnormal intracranial mass lesion. There are small region of subtle encephalomalacia with increased T2 signal associated with a thinned gyrus in the right parietal lobe. In this region there is likely arteriovenous malformation with subtle asymmetric increase in the arterial vascularity best appreciat ed on the prior CT angiogram. This includes numerous tiny enhancing intraparenchymal vessels within t he deeper right frontoparietal centrum semiovale white matter. There appears be a couple draining vei ns extending peripherally to the dura the right parietal region as well as deeper to the bladder and along the falx. There are a few foci of susceptibility artifact scattered throughout the right middle cerebral artery vascular distribution consistent with sequela of chronic microhemorrhage. There are no intraparenchymal signal abnormalities seen on the other pulse sequences. The ventricles are symmet isabela and normal in size. There are no abnormal extra-axial fluid collections. Flow voids are seen in t he cerebral arteries on the T2-weighted sequences consistent with their expected patency. Changes of bilateral intraocular lens replacement. Mild mucosal thickening in the bilateral ethmoid sinuses. Vis ualized orbits and soft tissues are otherwise unremarkable. There are no areas of abnormal enhancemen t on the post contrast images. IMPRESSION: 1. No acute intracranial process. 2. 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 3. 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 Reviewed, dictated and finalized at location A. [employer] IMPRESSION: 1. No acute intracranial process. 2. 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 3. Several tiny foci of susceptibility artifact in the right middle cerebral ar delisa vascular distribution likely sequela of chronic infarct potentially relate d to the arterial venous malformation.
--- NOTE | ~2024-10-12 | CT_ITS ---
CTA brain carotid Ordering provider: Danie Goel MD History: 84 years Male with . AMS . Comparison: None. FINDINGS: BRAIN PARENCHYMA AND CSF SPACES: Mild leukoaraiosis and diffuse cortical atrophy. Mild atheromatous d isease. No midline shift, mass effect or hemorrhage. The brain parenchyma and CSF spaces are otherwi se normal. VISUALIZED PARANASAL SINUSES: Bilateral ethmoid sinus disease. MASTOIDS: Well aerated. BONES: The bones appear intact. SOFT TISSUES: Visualized nasopharynx is normal. Superficial soft tissues are normal. IMPRESSION: No acute intracranial findings. CTA brain carotid Ordering provider: Danie Goel MD History: . AMS . Comparison: None. Technique: CT angiogram head and neck was performed following timed intravenous injection of contrast . Thin slice axial images and reformatted coronal images were obtained. Three dimensional reformatted images of the brain were also obtained using a [employer] workstation. Radiation reduction technique ut ilized.The dose-length product was 1908.16 mGy-cm. 100 mL Omnipaque 350 was given IV. FINDINGS: HEAD: --ANTERIOR AND MIDDLE CEREBRAL ARTERIES AND BRANCHES: Normal caliber and contour. --INTERNAL CAROTID ARTERIES: Mild atheromatous disease but minimal bilateral stenosis. No occlusion. --BASILAR ARTERY AND BRANCHES: Atherosclerotic changes in both vertebral arteries more on the right s sherita with moderate stenosis bilaterally. Otherwise, Normal caliber and contour. --POSTERIOR CEREBRAL ARTERIES: Normal caliber and contour --POSTERIOR COMMUNICATING ARTERIES: Not visualized which is probably related to congenital absence or small size. --ANEURYSM: None visualized. NECK: --RIGHT CERVICAL CAROTID SYSTEM: Mild atheromatous disease of the carotid bulb and proximal internal carotid artery without significant stenosis. Percent stenosis per NASCET criteria is 10%. No carotid dissection. Otherwise, no significant atheromatous disease or stenosis of the cervical carotid syste m. --LEFT CERVICAL CAROTID SYSTEM: Mild atheromatous disease of the carotid bulb and proximal internal c arotid artery without significant stenosis. Percent stenosis per NASCET criteria is 10%. No carotid dissection. Otherwise, no significant atheromatous disease or stenosis of the cervical carotid system. --VERTEBRAL ARTERIES: Normal.- -VISUALIZED AORTIC ARCH AND BRANCHING VESSELS: Mild atheromatous disease but no significant stenosis. --SOFT TISSUES: A right thyroid nodule. Ultrasound evaluation advised. --CERVICAL SPINE: Age appropriate degenerative changes. IMPRESSION: 1. CTA neck. Percent stenosis per NASCET criteria is 10%. 2. No evidence of occlusion or significant stenosis seen in the intracranial vessels except for mode rate degree in the both vertebral arteries. Reviewed, dictated and finalized at location A. [employer] IMPRESSION: No acute intracranial findings. CTA brain carotid Ordering provider: Danie Goel MD History: . AMS . Comparison: None. Technique: CT angiogram head and neck was performed following timed intravenous injection of contrast. Thin slice axial images and reformatted coronal images were obtained. Three dimensional reformatted images of the brain were also obta ined using a [employer] workstation. Radiation reduction technique utilized.The do se-length product was 1908.16 mGy-cm. 100 mL Omnipaque 350 was given IV. FINDINGS: HEAD: --ANTERIOR AND MIDDLE CEREBRAL ARTERIES AND BRANCHES: Normal caliber and contou r. --INTERNAL CAROTID ARTERIES: Mild atheromatous disease but minimal bilateral st enosis. No occlusion. --BASILAR ARTERY AND BRANCHES: Atherosclerotic changes in both vertebral arteri es more on the right side with moderate stenosis bilaterally. Otherwise, Normal caliber and contour. --POSTERIOR CEREBRAL ARTERIES: Normal caliber and contour --POSTERIOR COMMUNICATING ARTERIES: Not visualized which is probably related to congenital absence or small size. --ANEURYSM: None visualized. NECK: --RIGHT CERVICAL CAROTID SYSTEM: Mild atheromatous disease of the carotid bulb and proximal internal carotid artery without significant stenosis. Percent sten osis per NASCET criteria is 10%. No carotid dissection. Otherwise, no signific ant atheromatous disease or stenosis of the cervical carotid system. --LEFT CERVICAL CAROTID SYSTEM: Mild atheromatous disease of the carotid bulb a nd proximal internal carotid artery without significant stenosis. Percent steno sis per NASCET criteria is 10%. No carotid dissection. Otherwise, no significant atheromatous disease or stenosis of the cervical croft tid system. --VERTEBRAL ARTERIES: Normal.- -VISUALIZED AORTIC ARCH AND BRANCHING VESSELS: Mild atheromatous disease but no significant stenosis. --SOFT TISSUES: A right thyroid nodule. Ultrasound evaluation advised. --CERVICAL SPINE: Age appropriate degenerative changes. IMPRESSION: 1. CTA neck. Percent stenosis per NASCET criteria is 10%. 2. No evidence of occlusion or significant stenosis seen in the intracranial v essels except for moderate degree in the both vertebral arteries.
--- NOTE | 2024-10-12 10:02 | ED.GENADULT ---
HPI - General Adult General Chief complaint: Altered Mental Status Stated complaint: new onset confusion, dizzy History of Present Illness HPI narrative: 84-year-old male presenting to the emergency department for evaluation for acute onset of confusion. Patient states that he felt fine when he woke up at midnight to use the bathroom when he woke up 8:00 a.m. this morning he was confused. states that the patient got of walking to her room and the patient was unsure how he got to the room. Upon arrival to the emergency department by EMS patient states he does feel improved. Patient does not appear confused at this time. Patient has no focal neurologic abnormalities. Patient denies any recent cough colds or fevers. Patient denies any falls or injuries. Patient does take Eliquis. Related Data Home Medications ?Medication ?Instructions ?Recorded ?Confirmed ?Last Taken ?Type aspirin 81 mg chewable tablet 81 mg PO DAILY 11/05/19 10/12/24 10/12/24 History rivaroxaban 20 mg tablet (Xarelto) 20 mg PO HS 11/05/19 10/12/24 10/11/24 History finasteride 5 mg tablet 5 mg PO DAILY 11/16/19 10/12/24 10/11/24 History amiodarone 100 mg tablet 100 mg PO DAILY 10/12/24 10/12/24 10/11/24 History lisinopril 40 mg tablet 40 mg PO DAILY 10/12/24 10/12/24 10/11/24 History melatonin 5 mg capsule 10 mg PO HS sleep 10/12/24 10/12/24 10/11/24 History methocarbamol 500 mg tablet 500 mg PO BID 10/12/24 10/12/24 10/11/24 History omeprazole 20 mg capsule,delayed 20 mg PO DAILY 10/12/24 10/12/24 10/11/24 History release simvastatin 20 mg tablet mg 10/12/24 10/11/24 History Allergies Allergy/AdvReac Type Severity Reaction Status Date / Time morphine AdvReac Intermediate Agitated Verified 10/12/24 10:07 Review of Systems Review of Systems: All systems reviewed & are unremarkable except as noted in HPI and below PMFSH Past Medical History Medical History (Updated 10/12/24 @ 17:16 by Lea Ghosh PA-C) History of cardioversion Coronary artery disease Obstructive sleep apnea on CPAP Type 2 diabetes mellitus Atrial flutter Arthritis Osteoporosis Anticoagulant long-term use Essential (primary) hypertension Mixed hyperlipidemia Paroxysmal atrial fibrillation Surgical History Surgical History (Updated 10/12/24 @ 17:16 by Lea Ghosh PA-C) History of coronary artery stent placement (10/2012) drug-eluting stent to the LAD History of inguinal hernia repair History of cholecystectomy History of parathyroid surgery History of prostate surgery Family History Family History Mother Family history of glaucoma Family history of elevated blood lipids Hypertension Carcinoma of colon Sibling Hypertension Family history of elevated blood lipids Father Family history of elevated blood lipids Hypertension Other Family history of cardiovascular disease Family history of malignant neoplasm Social History Social History (Updated 10/12/24 @ 17:17 by Lea Ghosh PA-C) Social History: Surrogate medical decision maker: Shasta Arechiga, spouse. Code status: Full care. Smoking packs per day: 0.2 Smoking cigarettes per day: 4.0 Years smoked: 25 Smoking pack-years: 5.00 Smoking status: Former smoker Tobacco type: cigarettes Second hand tobacco smoke exposure: No Smoking end date: 04/26/75 Alcohol intake: current Drinks per week: 4 Alcohol use details: beer Substance use: never Substance use type: does not use Do You Feel Safe in your Home?: Yes Lack of Transportation: No Lack of Food: Never True Current Housing: I Have Housing Concerned About Future Housing: No Difficulty Paying Gas/Electric Bills: No Difficulty Paying for Meds: No Currently Unemployed: No Education: Decline to Answer Difficulty w/ Childcare or Family Care: No Living arrangements: with family Occupation/Education: retired Spiritual care concerns: No Exam Narrative: APPEARANCE: Well appearing, no pain, no distress, well-nourished. HEAD: normocephalic, atraumatic. EYES: PERRLA/EOMI, conjunctivae clear. NOSE: Normal no drainage EARS:TMS clear with good light reflex. Mouth: Bruising to tongue bilaterally THROAT: Pharynx clear, no exudate. NECK: Supple. No adenopathy, no masses. RESPIRATORY: Airway patent, respirations nonlabored. Clear to auscultation bilaterally, no rales, rhonchi, wheezing. CARDIOVASCULAR: Regular rate and rhythm without murmurs rubs or gallops. ABDOMINAL: Soft, nontender, nondistended, normal bowel sounds MUSCULOSKELETAL: Moves all extremities. Strength/ROM intact, No edema, No calf tenderness. NEURO: Alert. Cranial nerves II through XII intact. Grossly intact SKIN: Warm, dry. Normal Color Course Vital Signs Vital signs: Vital Signs Temperature 98.0 F 10/12/24 09:59 Pulse Rate 66 10/12/24 09:59 Respiratory Rate 12 10/12/24 09:59 Blood Pressure 108/77 10/12/24 09:59 Pulse Oximetry 98 10/12/24 09:59 Oxygen Delivery Room Air 10/12/24 09:59 Temperature 97.4 F L 10/12/24 16:35 Pulse Rate 61 10/12/24 16:35 Respiratory Rate 16 10/12/24 16:35 Blood Pressure 163/93 H 10/12/24 16:35 Pulse Oximetry 98 10/12/24 16:35 Oxygen Delivery Room Air 10/12/24 10:05 Medical Decision Making MDM Narrative Medical decision making narrative: 84-year-old male presents to the emergency department for evaluation for increased confusion when he woke up this morning. Patient states he woke up at midnight and felt fine but woke up at around 8 and fell confused. Patient states when he woke up this morning he was unable to recall which day it was and what happened yesterday. Patient has no prior history seizure and had no loss of bowel or bladder control but patient does have bites to his tongue bilaterally. His confusion that is improving and the tongue biting increases my suspicion that the patient had a seizure overnight. Patient has no prior history reported seizure. Patient is afebrile with no leukocytosis hemoglobin of 12. Patient has no acute abnormalities on his CMP UA was negative for infection patient was negative for influenza RSV and for COVID, CTA shows no acute intracranial abnormality. Neurology was consulted, case was discussed with hospitalist patient was admitted for further evaluation including an MRI. Differential Diagnosis Differential Diagnosis: Seizure, CVA, TIA, UTI, COVID, influenza RSV Vital Signs Vital Signs: Vital Signs Temperature 98.0 F 10/12/24 09:59 Pulse Rate 66 10/12/24 09:59 Respiratory Rate 12 10/12/24 09:59 Blood Pressure 108/77 10/12/24 09:59 Pulse Oximetry 98 10/12/24 09:59 Oxygen Delivery Room Air 10/12/24 09:59 Temperature 97.4 F L 10/12/24 16:35 Pulse Rate 61 10/12/24 16:35 Respiratory Rate 16 10/12/24 16:35 Blood Pressure 163/93 H 10/12/24 16:35 Pulse Oximetry 98 10/12/24 16:35 Oxygen Delivery Room Air 10/12/24 10:05 Lab Data Lab results reviewed: Yes I reviewed the patient's lab results. 10/12/24 10:14 10/12/24 10:20 Labs: Lab Results 10/12/24 10/12/24 10/12/24 Range/Units 10:14 10:15 10:20 WBC 9.8 (4.5-10.0) K/mm3 RBC 4.52 L (4.6-6.20) M/mm3 Hgb 12.0 L (14.0-18.0) g/dL Hct 37.9 L (42.0-52.0) % MCV 83.8 (80-100) fl MCH 26.5 (26-34) pg MCHC 31.7 L (32-36) g/dl RDW 14.9 H (11.5-14.5) % Plt Count 185 (150-375) k/mm3 MPV 11.0 H (7.4-10.4) fl Immature Gran % (Auto) Not Reportable Neut % (Auto) Not Reportable Lymph % (Auto) Not Reportable [place] % (Auto) Not Reportable Eos % (Auto) Not Reportable Baso % (Auto) Not Reportable Lymph # (Auto) Not Reportable [place] # (Auto) Not Reportable Eos # (Auto) Not Reportable Baso # (Auto) Not Reportable Abs Immat Gran (auto) Not Reportable Absolute Neuts (auto) Not Reportable Absolute Nucleated RBC Not Reportable Total Counted 100 Neutrophils % (Manual) 79 H (46-73) % Band Neutrophils % 10 H (0-6) % Lymphocytes % (Manual) 7 L (18-44) % Monocytes % (Manual) 4 (3-9) % Nucleated RBC % Not Reportable Abs Neuts (Manual) 8.72 H (1.3-6.7) K/mm3 Abs Lymphs (Manual) 0.68 L (1.1-4.5) K/mm3 Abs Monocytes (Manual) 0.39 (0.1-0.90) K/mm3 Platelet Estimate Adequate (Adequate) Anisocytosis 1+ Schistocytes None seen PT 20.0 H (11.1-14.7) Seconds INR 1.7 APTT 31.3 (22.3-36.8) Seconds Sodium 136 L (137-145) mmol/L Potassium 3.7 (3.4-5.0) mmol/L Chloride 105 (98-107) mmol/L Carbon Dioxide 27 (22-30) mmol/L Anion Gap 4 (4-12) mmol/L BUN 14 (9-20) mg/dL Creatinine 1.00 1.10 (0.7-1.3) mg/dL Estim Creat Clear Calc 59 54 ml/min Estimated GFR > 60 > 60 (59 - ) Glucose 194 H (65-110) mg/dL Calcium 8.4 (8.4-10.2) mg/dL Total Bilirubin 0.7 (0.2-1.3) mg/dL AST 25 (17-59) U/L ALT 17 (6-50) U/L Alkaline Phosphatase 66 (38-126) U/L Total Protein 6.0 L (6.3-8.2) g/dL Albumin 3.7 (3.5-5.1) g/dL Urine Color (Yellow) Urine Appearance (Clear) Urine pH (5.0-9.0) Ur Specific [place] (1.001-1.035) Urine Protein (Negative) mg/dL Urine Glucose (UA) (Negative) mg/dL Urine Ketones (Negative) mg/dL Ur Blood (Man) (Negative) Urine Nitrate (Negative) Urine Bilirubin (Negative) Urine Urobilinogen (<2.0) mg/dL Leukocyte Esterase Rfl (Negative) MATILDE/UL Influenza A (RT-PCR) Negative (Negative) Influenza B (RT-PCR) Negative (Negative) RSV (RT-PCR) Negative (Negative) SARS-CoV-2 RNA (RT-PCR) Negative (Negative) 10/12/24 Range/Units 11:40 WBC (4.5-10.0) K/mm3 RBC (4.6-6.20) M/mm3 Hgb (14.0-18.0) g/dL Hct (42.0-52.0) % MCV (80-100) fl MCH (26-34) pg MCHC (32-36) g/dl RDW (11.5-14.5) % Plt Count (150-375) k/mm3 MPV (7.4-10.4) fl Immature Gran % (Auto) Neut % (Auto) Lymph % (Auto) [place] % (Auto) Eos % (Auto) Baso % (Auto) Lymph # (Auto) [place] # (Auto) Eos # (Auto) Baso # (Auto) Abs Immat Gran (auto) Absolute Neuts (auto) Absolute Nucleated RBC Total Counted Neutrophils % (Manual) (46-73) % Band Neutrophils % (0-6) % Lymphocytes % (Manual) (18-44) % Monocytes % (Manual) (3-9) % Nucleated RBC % Abs Neuts (Manual) (1.3-6.7) K/mm3 Abs Lymphs (Manual) (1.1-4.5) K/mm3 Abs Monocytes (Manual) (0.1-0.90) K/mm3 Platelet Estimate (Adequate) Anisocytosis Schistocytes PT (11.1-14.7) Seconds INR APTT (22.3-36.8) Seconds Sodium (137-145) mmol/L Potassium (3.4-5.0) mmol/L Chloride (98-107) mmol/L Carbon Dioxide (22-30) mmol/L Anion Gap (4-12) mmol/L BUN (9-20) mg/dL Creatinine (0.7-1.3) mg/dL Estim Creat Clear Calc ml/min Estimated GFR (59 - ) Glucose (65-110) mg/dL Calcium (8.4-10.2) mg/dL Total Bilirubin (0.2-1.3) mg/dL AST (17-59) U/L ALT (6-50) U/L Alkaline Phosphatase (38-126) U/L Total Protein (6.3-8.2) g/dL Albumin (3.5-5.1) g/dL Urine Color Yellow (Yellow) Urine Appearance Clear (Clear) Urine pH 6.5 (5.0-9.0) Ur Specific [place] 1.043 H (1.001-1.035) Urine Protein Negative (Negative) mg/dL Urine Glucose (UA) Trace H (Negative) mg/dL Urine Ketones Negative (Negative) mg/dL Ur Blood (Man) Negative (Negative) Urine Nitrate Negative (Negative) Urine Bilirubin Negative (Negative) Urine Urobilinogen 0.2 (<2.0) mg/dL Leukocyte Esterase Rfl Negative (Negative) MATILDE/UL Influenza A (RT-PCR) (Negative) Influenza B (RT-PCR) (Negative) RSV (RT-PCR) (Negative) SARS-CoV-2 RNA (RT-PCR) (Negative) Imaging Data Radiologist's impression: Impressions Head/Neck CTA 10/12/24 10:43 IMPRESSION: No acute intracranial findings. CTA brain carotid Ordering provider: Danie Goel MD History: . AMS . Comparison: None. Technique: CT angiogram head and neck was performed following timed intravenous injection of contrast. Thin slice axial images and reformatted coronal images were obtained. Three dimensional reformatted images of the brain were also obtained using a [employer] workstation. Radiation reduction technique utilized.The dose-length product was 1908.16 mGy-cm. 100 mL Omnipaque 350 was given IV. FINDINGS: HEAD: --ANTERIOR AND MIDDLE CEREBRAL ARTERIES AND BRANCHES: Normal caliber and contour. --INTERNAL CAROTID ARTERIES: Mild atheromatous disease but minimal bilateral stenosis. No occlusion. --BASILAR ARTERY AND BRANCHES: Atherosclerotic changes in both vertebral arteries more on the right side with moderate stenosis bilaterally. Otherwise, Normal caliber and contour. --POSTERIOR CEREBRAL ARTERIES: Normal caliber and contour --POSTERIOR COMMUNICATING ARTERIES: Not visualized which is probably related to congenital absence or small size. --ANEURYSM: None visualized. NECK: --RIGHT CERVICAL CAROTID SYSTEM: Mild atheromatous disease of the carotid bulb and proximal internal carotid artery without significant stenosis. Percent stenosis per NASCET criteria is 10%. No carotid dissection. Otherwise, no significant atheromatous disease or stenosis of the cervical carotid system. --LEFT CERVICAL CAROTID SYSTEM: Mild atheromatous disease of the carotid bulb and proximal internal carotid artery without significant stenosis. Percent stenosis per NASCET criteria is 10%. No carotid dissection. Otherwise, no significant atheromatous disease or stenosis of the cervical carotid system. --VERTEBRAL ARTERIES: Normal.- -VISUALIZED AORTIC ARCH AND BRANCHING VESSELS: Mild atheromatous disease but no significant stenosis. --SOFT TISSUES: A right thyroid nodule. Ultrasound evaluation advised. --CERVICAL SPINE: Age appropriate degenerative changes. IMPRESSION: 1. CTA neck. Percent stenosis per NASCET criteria is 10%. 2. No evidence of occlusion or significant stenosis seen in the intracranial vessels except for moderate degree in the both vertebral arteries. Discharge Plan Discharge Clinical Impression: Seizure, AMS (altered mental status) Patient Disposition: Still a Patient Condition: Serious
--- NOTE | 2024-10-12 10:09 | ECG_ITS ---
Test Date: 2024-10-12 10:03:53 Measurements Intervals [place] Rate: 68 P: 74 MT: 257 QRS: 0 QRSD: 170 T: 10 QT: 479 QTc: 512 Interpretive Statements SINUS RHYTHM WITH FIRST DEGREE AV BLOCK RIGHT BUNDLE BRANCH BLOCK [120+ ms QRS DURATION, UPRIGHT V1, 40+ ms S IN I/aVL/V4/V5/V6] No previous ECG available for comparison Electronically Signed On 10-12-2024 16:17:49 BACK SHOE OPERATOR by Lexi Girard M.D.
[2024-10-12 10:20] LABS: Hematocrit 37.9 % (42.0-52.0); Mean Corpuscular HGB Conc 31.7 g/dl (32-36); Mean Corpuscular Hemoglobin 26.5 pg (26-34); Mean Corpuscular Volume 83.8 fl (80-100); Platelet Count Result 185 k/mm3 (150-375); Red Blood Count 4.52 M/mm3 (4.6-6.20); Red Cell Distribution Width 14.9 % (11.5-14.5); White Blood Count 9.8 K/mm3 (4.5-10.0)
[2024-10-12 10:24] LABS: Estimated CRCL calculation 54 ml/min; Estimated Glomerular Filt Rate > 60
[2024-10-12 10:29] LABS: Alanine Aminotransferase 17 U/L (6-50); Albumin Level 3.7 g/dL (3.5-5.1); Alkaline Phosphatase 66 U/L (38-126); Anion Gap 4 mmol/L (4-12); Aspartate Amino Transferase 25 U/L (17-59); Bilirubin,Total 0.7 mg/dL (0.2-1.3); Blood Urea Nitrogen 14 mg/dL (9-20); Calcium 8.4 mg/dL (8.4-10.2); Carbon Dioxide 27 mmol/L (22-30); Chloride 105 mmol/L (98-107); Estimated CRCL calculation 59 ml/min; Estimated Glomerular Filt Rate > 60; Glucose 194 mg/dL (65-110); Potassium 3.7 mmol/L (3.4-5.0); Sodium 136 mmol/L (137-145)
[2024-10-12 10:30] LABS: INR 1.7
[2024-10-12 10:31] LABS: Partial Thromboplastin Time 31.3 Seconds (22.3-36.8)
[2024-10-12 10:40] LABS: Anisocytosis 1+; Band Neutrophils Percent 10 % (0-6); Lymphocytes Absolute Manual 0.68 K/mm3 (1.1-4.5); Lymphocytes Percent Manual 7 % (18-44); Monocytes Absolute Manual 0.39 K/mm3 (0.1-0.90); Monocytes Percent Manual 4 % (3-9); Neutrophils Absolute Manual 8.72 K/mm3 (1.3-6.7); Neutrophils Percent Manual 79 % (46-73); Platelet Estimate Adequate (Adequate); Total Cells Counted 100
[2024-10-12 10:41] LABS: Schistocytes None Seen
[2024-10-12 10:55] LABS: Influenza A QL RT-PCR Negative (Negative); Influenza B QL RT-PCR Negative (Negative); RSV RNA, RT-PCR Negative (Negative); SARS-CoV-2 RNA PCR Negative (Negative)
[2024-10-12 11:48] LABS: Add Urine Microscopic? NO; Appearance Urine Clear (Clear); Bilirubin Urine Negative (Negative); Blood Urine Negative (Negative); Color Urine Yellow (Yellow); Glucose Urine UA Trace mg/dL (Negative); Ketones Urine Negative (Negative); Leukocyte Esterase Ur Negative LEU/UL (Negative); Nitrate Urine Negative (Negative); Protein Urine Negative (Negative); Specific Grav Ur 1.043 (1.001-1.035); Urobilinogen Urine 0.2 mg/dL (<2.0); pH Urine 6.5 (5.0-9.0)
--- NOTE | 2024-10-12 13:00 | PM.IMHP ---
H&P: HPI History of Present Illness Date/Time: 10/12/24 13:15 Chief Complaint: Confusion. Narrative: This is a very pleasant 84-year-old male with paroxysmal atrial fibrillation on chronic anticoagulation, coronary artery disease, hypertension, hyperlipidemia, obstructive sleep apnea on CPAP, gastroesophageal reflux disease, and type 2 diabetes mellitus who presented to the emergency department via private via home for evaluation of confusion. The patient provides the following history and his provides additional information with the patient's permission. He was in his usual state of health yesterday and spent the evening having dinner with family members and looking at brotips lights. He went to bed around 22:00 and remembers getting up 2 times to use the restroom which is not unusual for him. His was not sleeping well and she got up at about 04:00 and went to the living room where she fell back asleep. The patient was reportedly asleep in bed at that time and was wearing his CPAP. At around 08:00 the patient woke his up and told her that he was feeling confused. He reports that he woke up in a chair on their sun porch and was disoriented and did not recall how he had gotten there. He did not have any surface injuries however reports that is tongue hurt and he has significant bruising and evidence of tongue bite on exam. There was nothing out of place on the sun porch and it does not look as though he sustained a fall. She encouraged him to come in for evaluation and over the course of a couple of hours he has returned back to baseline but still cannot recall what happened earlier today. He denies fever, chills, sweats, cold and flu symptoms, chest pain, pleuritic pain, shortness of breath, cough, nausea, vomiting, diarrhea, dysuria, syncope, near syncope, vertigo, diplopia, facial droop, difficulty speaking and swallowing, focal weakness, and change in paresthesias (he has intermittent paresthesias in the hands and feet, likely related to diabetic neuropathy and possible carpal tunnel syndrome). No history of seizures, recent medication changes, or alcohol abuse. In the ED: He was afebrile on arrival with stable vital signs. Labs were significant for a WBC count of 9.8, hemoglobin 12.0, platelet 185, sodium 136, potassium 3.7, BUN 14, creatinine 1.10, glucose 194, carbon dioxide 27. CTA of the head and neck showed no acute intracranial findings, and no evidence of occlusion or significant stenosis in the intracranial vessels except for moderate degree in both vertebral arteries. EKG showed sinus rhythm without acute ST segment deviations. He is being admitted in this setting for close monitoring and further workup. Review of Systems Review of Systems: 12 systems were reviewed and are negative except for as per HPI. [facility] Past Medical History Medical History (Updated 10/12/24 @ 17:41 by Lea Ghosh PA-C) Benign prostatic hyperplasia History of cardioversion Coronary artery disease Obstructive sleep apnea on CPAP Type 2 diabetes mellitus Atrial flutter Arthritis Osteoporosis Anticoagulant long-term use Essential (primary) hypertension Mixed hyperlipidemia Paroxysmal atrial fibrillation Surgical History Surgical History (Updated 10/12/24 @ 17:16 by Lea Ghosh PA-C) History of coronary artery stent placement (10/2012) drug-eluting stent to the LAD History of inguinal hernia repair History of cholecystectomy History of parathyroid surgery History of prostate surgery Family History Family History Mother Family history of glaucoma Family history of elevated blood lipids Hypertension Carcinoma of colon Sibling Hypertension Family history of elevated blood lipids Father Family history of elevated blood lipids Hypertension Other Family history of cardiovascular disease Family history of malignant neoplasm Social History Social History (Updated 10/12/24 @ 17:17 by Lea Ghosh PA-C) Social History: Surrogate medical decision maker: Shasta Arechiga, spouse. Code status: Full care. Smoking packs per day: 0.2 Smoking cigarettes per day: 4.0 Years smoked: 25 Smoking pack-years: 5.00 Smoking status: Former smoker Tobacco type: cigarettes Second hand tobacco smoke exposure: No Smoking end date: 04/26/75 Alcohol intake: current Drinks per week: 4 Alcohol use details: beer Substance use: never Substance use type: does not use Do You Feel Safe in your Home?: Yes Lack of Transportation: No Lack of Food: Never True Current Housing: I Have Housing Concerned About Future Housing: No Difficulty Paying Gas/Electric Bills: No Difficulty Paying for Meds: No Currently Unemployed: No Education: Decline to Answer Difficulty w/ Childcare or Family Care: No Living arrangements: with family Occupation/Education: retired Spiritual care concerns: No Meds Home Medications and Allergies Home Medications ?Medication ?Instructions ?Recorded ?Confirmed ?Type aspirin 81 mg chewable tablet 81 mg PO DAILY 11/05/19 10/12/24 History rivaroxaban 20 mg tablet (Xarelto) 20 mg PO HS 11/05/19 10/12/24 History finasteride 5 mg tablet 5 mg PO DAILY 11/16/19 10/12/24 History metformin 500 mg tablet 500 mg PO BID #180 tabs 04/30/22 10/12/24 Rx amiodarone 100 mg tablet 100 mg PO DAILY 10/12/24 10/12/24 History lisinopril 40 mg tablet 40 mg PO DAILY 10/12/24 10/12/24 History melatonin 5 mg capsule 10 mg PO HS sleep 10/12/24 10/12/24 History methocarbamol 500 mg tablet 500 mg PO BID 10/12/24 10/12/24 History omeprazole 20 mg capsule,delayed 20 mg PO DAILY 10/12/24 10/12/24 History release simvastatin 20 mg tablet mg 10/12/24 History Allergies Allergy/AdvReac Type Severity Reaction Status Date / Time morphine AdvReac Intermediate Agitated Verified 10/12/24 10:07 Vital Signs Vital Signs - 24 hr 10/12/24 09:59 10/12/24 10:04 10/12/24 10:05 Temperature 98.0 F Pulse Rate 66 68 Respiratory Rate 12 Blood Pressure 108/77 Pulse Oximetry 98 95 Oxygen Delivery Room Air Room Air 10/12/24 10:53 10/12/24 11:38 Temperature Pulse Rate 62 64 Respiratory Rate 16 16 Blood Pressure 138/78 144/80 H Pulse Oximetry 96 97 Oxygen Delivery Exam Narrative: General: Well-developed, nontoxic-appearing gentleman sitting up in bed in no acute distress. Weight: 104 kg BMI: 27.9. HEENT: Normocephalic, atraumatic. PERRL, EOMI. Sclera anicteric. Oral mucosa moist. There is pretty significant bruising of the tongue, more so on the left side. Oropharynx is clear. Neck: Supple. No midline vertebral tenderness. No obvious thyromegaly, lymphadenopathy, or bruits. Respiratory: Lungs are clear to auscultation bilaterally. Cardiovascular: Regular rate and rhythm with S1-S2. Occasional ectopy. Gastrointestinal: Abdomen is soft, nontender, and nondistended with positive bowel sounds. Skin: Warm and dry. No rash or lesions on limited exam. Extremities: No cyanosis, clubbing, or edema. Radial and pedal pulses intact. Neurological: Alert and oriented x4. Cranial nerves 2-12 are grossly intact. Speech is clear. No facial asymmetry. No pronator drift. Normal [id number]. No significant motor deficits on exam. Reports sensation changes in the hands and feet, likely diabetic neuropathy, which has been an ongoing issue as of late. Psychiatric: Pleasant and cooperative with normal mood and affect. Judgment and insight intact. H&P: Results Labs Labs: Short CBC 10/12/24 Range/Units 10:14 WBC 9.8 (4.5-10.0) K/mm3 Hgb 12.0 L (14.0-18.0) g/dL Hct 37.9 L (42.0-52.0) % Plt Count 185 (150-375) k/mm3 BMP 10/12/24 10/12/24 10:15 10:20 Sodium 136 L Potassium 3.7 Chloride 105 Carbon Dioxide 27 BUN 14 Creatinine 1.00 1.10 Glucose 194 H Calcium 8.4 Liver Function 10/12/24 Range/Units 10:15 Total Bilirubin 0.7 (0.2-1.3) mg/dL AST 25 (17-59) U/L ALT 17 (6-50) U/L Alkaline Phosphatase 66 (38-126) U/L Albumin 3.7 (3.5-5.1) g/dL Urine 10/12/24 Range/Units 11:40 Urine Color Yellow (Yellow) Urine Appearance Clear (Clear) Urine pH 6.5 (5.0-9.0) Ur Specific [place] 1.043 H (1.001-1.035) Urine Protein Negative (Negative) mg/dL Urine Glucose (UA) Trace H (Negative) mg/dL Impressions Head/Neck CTA 10/12/24 10:43 IMPRESSION: No acute intracranial findings. CTA brain carotid Ordering provider: Danie Goel MD History: AMS . Comparison: None. Technique: CT angiogram head and neck was performed following timed intravenous injection of contrast. Thin slice axial images and reformatted coronal images were obtained. Three dimensional reformatted images of the brain were also obtained using a [employer] workstation. Radiation reduction technique utilized.The dose-length product was 1908.16 mGy-cm. 100 mL Omnipaque 350 was given IV. FINDINGS: HEAD: --ANTERIOR AND MIDDLE CEREBRAL ARTERIES AND BRANCHES: Normal caliber and contour. --INTERNAL CAROTID ARTERIES: Mild atheromatous disease but minimal bilateral stenosis. No occlusion. --BASILAR ARTERY AND BRANCHES: Atherosclerotic changes in both vertebral arteries more on the right side with moderate stenosis bilaterally. Otherwise, Normal caliber and contour. --POSTERIOR CEREBRAL ARTERIES: Normal caliber and contour --POSTERIOR COMMUNICATING ARTERIES: Not visualized which is probably related to congenital absence or small size. --ANEURYSM: None visualized. NECK: --RIGHT CERVICAL CAROTID SYSTEM: Mild atheromatous disease of the carotid bulb and proximal internal carotid artery without significant stenosis. Percent stenosis per NASCET criteria is 10%. No carotid dissection. Otherwise, no significant atheromatous disease or stenosis of the cervical carotid system. --LEFT CERVICAL CAROTID SYSTEM: Mild atheromatous disease of the carotid bulb and proximal internal carotid artery without significant stenosis. Percent stenosis per NASCET criteria is 10%. No carotid dissection. Otherwise, no significant atheromatous disease or stenosis of the cervical carotid system. --VERTEBRAL ARTERIES: Normal.- -VISUALIZED AORTIC ARCH AND BRANCHING VESSELS: Mild atheromatous disease but no significant stenosis. --SOFT TISSUES: A right thyroid nodule. Ultrasound evaluation advised. --CERVICAL SPINE: Age appropriate degenerative changes. IMPRESSION: 1. CTA neck. Percent stenosis per NASCET criteria is 10%. 2. No evidence of occlusion or significant stenosis seen in the intracranial vessels except for moderate degree in the both vertebral arteries. Assessment and Plan Assessment and plan (1) Confusion: Code(s): R41.0 - Disorientation, unspecified Status: Acute (2) Seizure: Code(s): R56.9 - Unspecified convulsions Status: Acute (3) Type 2 diabetes mellitus: Code(s): E11.9 - Type 2 diabetes mellitus without complications Status: Acute (4) Paroxysmal atrial fibrillation: Code(s): I48.0 - Paroxysmal atrial fibrillation Status: Acute (5) Obstructive sleep apnea on CPAP: Code(s): G47.33 - Obstructive sleep apnea (adult) (pediatric) Status: Acute (6) Essential (primary) hypertension: Code(s): I10 - Essential (primary) hypertension Status: Acute (7) Anticoagulant long-term use: Code(s): Z79.01 - [employer] (current) use of anticoagulants Status: Acute Plan The patient presented to the emergency department for evaluation of confusion earlier today as detailed in HPI. Labs, imaging, EKG, and all reports were personally reviewed. Seizures suspected given his confusion which is now resolved and tongue bite. Syncope remains a possibility though seizure seems more likely. He will be monitored on telemetry overnight. Brain MRI and EEG have been ordered. Neurology has been consulted for their input. He is currently in a sinus rhythm. Continue amiodarone for paroxysmal atrial fibrillation. Resume rivaroxaban tomorrow evening. Random glucose was nearly 200. Hold metformin as she received IV contrast. Initiate sliding scale insulin, Accu-Cheks, and hypoglycemic protocol. Check hemoglobin A1c. Blood pressures were reviewed and they have been reasonable. CPAP will be provided for the patient to use while hospitalized. His medications will be reviewed and resumed as appropriate. Findings and treatment plan were discussed with the patient. Questions were solicited and answered to satisfaction. The patient's medical management will be taken over by the hospitalist team in a.m. Quality VTE Prophylaxis VTE prophylaxis: mechanical ordered The patient has been admitted under observation status. Hospitalist [facility] Advance Care Plan I have confirmed that the patient's Advanced Care Plan is present, code status is documented, or surrogate decision maker is listed in patient medical record.: Yes Medication Reconciliation I have utilized all available resources to obtain, update and review the patients current medications (includes all prescriptions, OTC, herbals, cannabis, and nutritional supplements).: Yes
--- NOTE | 2024-10-12 14:57 | PC.NURSE ---
Md Garcia at bedside. Per MD Garcia, pt. has neuropathy and will need a nerve EMG test done outpatient. asked this RN to put a note in the computer.
--- NOTE | 2024-10-12 16:25 | PC.NURSE ---
This patient, Rolf Arechiga, was admitted to 3 [facility] Surg Room 305-01. Patient/family oriented to hospital policies and general routines including ID bracelet, bed and alarms, visiting hours, pain management, procedures, bathroom and other care routines, personal items, smoking policy, room service/diet, and visiting hours. Information on how to activate the Rapid Response Team has been discussed. Patient/Family are encouraged to report perceived risks to care and to ask questions if they do not understand what they are told or what they should do.
[2024-10-12] MEDS: methocarbamoL 500 MG TABLET PO (20:24)
[2024-10-12] MEDS: MELATONIN 5 MG TABLET 10 MG PO (20:24)
[2024-10-13] VITALS (10 sets, daily range): BP systolic 147–165; BP diastolic 68–79; PULSE 56–64; RESP 18; TEMP 36.2–36.3; O2SAT 96–97
[2024-10-13 02:49] LABS: Glucose Point of Care 158 mg/dl (65-105)
[2024-10-13 07:00] LABS: Hematocrit 37.2 % (42.0-52.0); Hemoglobin 11.7 g/dL (14.0-18.0); Mean Corpuscular HGB Conc 31.5 g/dl (32-36); Mean Corpuscular Hemoglobin 26.5 pg (26-34); Mean Corpuscular Volume 84.2 fl (80-100); Mean Platelet Volume 12.1 fl (7.4-10.4); Platelet Count Result 189 k/mm3 (150-375); Red Blood Count 4.42 M/mm3 (4.6-6.20); Red Cell Distribution Width 15.1 % (11.5-14.5); White Blood Count 5.3 K/mm3 (4.5-10.0)
[2024-10-13 07:10] LABS: Anion Gap 5 mmol/L (4-12); Blood Urea Nitrogen 15 mg/dL (9-20); Calcium 8.5 mg/dL (8.4-10.2); Carbon Dioxide 29 mmol/L (22-30); Chloride 103 mmol/L (98-107); Estimated CRCL calculation 54 ml/min; Estimated Glomerular Filt Rate > 60; Glucose 145 mg/dL (65-110); Potassium 3.7 mmol/L (3.4-5.0); Sodium 137 mmol/L (137-145)
[2024-10-13 07:11] LABS: Hemoglobin A1C 7.1 % (<5.7)
[2024-10-13 07:57] LABS: Glucose Point of Care 151 mg/dl (65-105)
[2024-10-13] MEDS: FINASTERIDE 5 MG TABLET PO (08:35)
[2024-10-13] MEDS: PANTOPRAZOLE 40 MG TABLET PO (08:35)
[2024-10-13] MEDS: methocarbamoL 500 MG TABLET PO ×2 (08:35→20:10)
[2024-10-13] MEDS: ASPIRIN 81 MG CHEWABLE TABLET PO (08:35)
[2024-10-13] MEDS: lisinopriL 20 MG TABLET 40 MG PO (08:35)
[2024-10-13] MEDS: AMIODARONE HCL 100 MG TABLET PO (08:37)
[2024-10-13] MEDS: LORazepam INJ (*CRX) 2 MG/ML VIAL 1 MG IV PUSH (09:00)
--- NOTE | 2024-10-13 10:00 | ECHO_ITS ---
Patient Info Name: Rolf Arechiga Age: 84 years : 1940 Gender: Male Ht: 76 in Wt: 241 lbs BSA: 2.44 m2 HR: 64 bpm BP: 150 / 62 mmHg Heart Rhythm: Sinus Rhythm Technical Quality: Good Exam Date: 10/13/2024 11:15 AM Exam Location: Echo Lab Exam Room: [facility] Patient Status: Inpatient Admit Date: 10/12/2024 Staff Ordering Physician: Lea Ghosh PA-C Final Installer Inspector: Dominique Concepcion RDCS Attending Provider: Jakob Richardson MD Referring Physician: Augie MAGDALENO; Exam Type: CA echo doppler color flow Study Info Complete two-dimensional, color flow and Doppler transthoracic echocardiogram is performed. Summary 1. Left ventricular chamber dimension is normal. 2. Left ventricular systolic function is normal, estimated at 60-65%. 3. There is mildly increased left ventricular wall thickness. 4. The left ventricular diastolic function is grade I diastolic dysfunction. 5. Right ventricular chamber dimension is mildly enlarged. 6. Right ventricular systolic function is normal. 7. Left atrial chamber dimension is severely enlarged. 8. There is mild aortic valve regurgitation. 9. There is mild to moderate mitral valve regurgitation. 10. There is mild to moderate tricuspid valve regurgitation. 11. There is mild pulmonic regurgitation. Left Ventricle Left ventricular chamber dimension is normal. Left ventricular systolic function is normal, estimated at 60-65%. There is mildly increased left ventricular wall thickness. The left ventricular diastolic function is grade I diastolic dysfunction. Right Ventricle Right ventricular chamber dimension is mildly enlarged. Right ventricular systolic function is normal. Left Atria Left atrial chamber dimension is severely enlarged. Right Atria Right atrial chamber dimension is normal. Atrial Septum Intact interatrial septum visualized by color flow imaging. Aortic Valve The aortic valve is trileaflet. There is no aortic valve stenosis. There is mild aortic valve regurgitation. Pulmonic Valve The pulmonic valve is not well visualized. There is mild pulmonic regurgitation. Mitral Valve There is mild to moderate mitral valve regurgitation. Tricuspid Valve There is mild to moderate tricuspid valve regurgitation. Pericardium/Pleural There is no pericardial effusion. Inferior Vena Cava Dilated inferior vena cava with >50% collapse upon inspiration consistent with elevated right atrial pressure, 8 mmHg. Aorta The aortic root size at the sinus of Valsalva is normal. Left Ventricular Outflow Tract Name Value Normal LVOT 2D LVOT Diameter 2.7 cm LVOT Doppler LVOT Peak Gradient 4 mmHg LVOT Mean Gradient 2 mmHg LVOT VTI 22 cm LVOT VTI/AV VTI Ratio 0.8 LVOT Stroke Volume 125 ml LVOT CO 7.5 l/min LVOT CI 3.1 l/min/m2 Pulmonic Valve Name Value Normal PV Doppler PV Peak Gradient 2 mmHg PV Regurgitation Doppler TN Peak End Diastolic Velocity 132 cm/s Mitral Valve Name Value Normal MV Doppler MV Peak Gradient 4 mmHg MV Mean Gradient 1 mmHg MV Decel Grand 222 cm/s2 MV PHT 70 ms MV Area (PHT) 3.1 cm2 4.0-5.0 MV Area (Cont Eq VTI) 3.9 cm2 MV Regurgitation Doppler MR Peak Gradient 130 mmHg MV Diastolic Function MV E Peak Velocity 54 cm/s MV A Peak Velocity 95 cm/s MV E/A 0.6 MV Decel Time 242 ms MV Annular TDI MV E/e' (Septal) 16.8 <=8.0 MV E/e' (Lateral) 14.5 <=8.0 MV E/e' (Average) 15.7 Tricuspid Valve Name Value Normal TV Regurgitation Doppler TR Peak Velocity 309 cm/s TR Peak Gradient 38 mmHg Estimated PAP/RSVP RA Pressure 8 mmHg <=5 PA Systolic Pressure 46 mmHg <36 RV Systolic Pressure 46 mmHg <36 Aortic Valve Name Value Normal AV Doppler AV Peak Velocity 112 cm/s AV Peak Gradient 5 mmHg AV Mean Gradient 3 mmHg AV VTI 27 cm AV Area (Cont Eq VTI) 4.7 cm2 >=3.0 AV Area (Cont Eq Jay) 5.0 cm2 AV Regurgitation 2D LVOT Area 5.6 cm2 AV Regurgitation Doppler AR Decel Time 2,243 ms AR Decel Grand 159 cm/s2 AR PHT 650 ms Ventricles Name Value Normal LV Dimensions 2D/MM IVS Diastolic Thickness (2D) 1.1 cm 0.6-1.0 LVID Diastole (2D) 5.7 cm 4.2-5.8 LVIW Diastolic Thickness (2D) 1.1 cm 0.6-1.0 LVID Systole (2D) 4.2 cm 2.5-4.0 LVOT Diameter 2.7 cm LV Mass (2D Cubed) 245.94 g 88.00-224.00 LV Mass Index (2D Cubed) 101 g/m2 49-115 Relative Wall Thickness (2D) 0.37 LV Fractional Shortening/Ejection Fraction 2D/MM LV Fractional Shortening (2D) 25 % 25-43 LV EF (2D Teicholz) 49 % 52-72 LV Diastolic Volume (4C MOD) 187 ml LV EF (4C MOD) 68 % LV Diastolic Volume (2C MOD) 208 ml LV EF (2C MOD) 66 % LV Diastolic Volume (BP MOD) 204 ml 62-150 LV Diastolic Volume Index (BP MOD) 83 ml/m2 34-74 LV Systolic Volume (BP MOD) 70 ml 21-61 LV Systolic Volume Index (BP MOD) 29 ml/m2 11-31 LV EF (BP MOD) 65 % 52-72 LV Diastolic Length (4C) 8.3 cm LV Systolic Length (4C) 6.7 cm LV Stroke Volume (4C MOD) 127 ml Atria Name Value Normal LA Dimensions LA Dimension (2D) 6.2 cm 3.0-4.1 LA Dimen Index (2D) 2.6 cm/m2 LA Volume (4C A-L) 170 ml LA Volume (BP A-L) 158 ml Report Signatures
--- NOTE | 2024-10-13 10:27 | P.PNIM_ITS ---
Progress Note: A&P Assessment and Plan (1) Confusion: Code(s): R41.0 - Disorientation, unspecified Status: Acute Assessment and Plan: * Currently A&Ox4. (2) Seizure: Code(s): R56.9 - Unspecified convulsions Status: Acute Assessment and Plan: * Seizures suspected given his confusion which is now resolved and tongue bite. Syncope remains a possibility though seizure seems more likely. He will be monitored on telemetry. * Seizure precautions * Neurology consulted. * Echo: Summary 1. Left ventricular chamber dimension is normal. 2. Left ventricular systolic function is normal, estimated at 60-65%. 3. There is mildly increased left ventricular wall thickness. 4. The left ventricular diastolic function is grade I diastolic dysfunction. 5. Right ventricular chamber dimension is mildly enlarged. 6. Right ventricular systolic function is normal. 7. Left atrial chamber dimension is severely enlarged. 8. There is mild aortic valve regurgitation. 9. There is mild to moderate mitral valve regurgitation. 10. There is mild to moderate tricuspid valve regurgitation. 11. There is mild pulmonic regurgitation. * Brain MRI completed, results pending. * EEG ordered. (3) Type 2 diabetes mellitus: Code(s): E11.9 - Type 2 diabetes mellitus without complications Status: Acute Assessment and Plan: * Sliding scale insulin, Accu-Cheks, and hypoglycemic protocol. * HgbA1C 7.1%. (4) Paroxysmal atrial fibrillation: Code(s): I48.0 - Paroxysmal atrial fibrillation Status: Acute Assessment and Plan: * Amiodarone 100 mg PO daily * Rivaroxaban 20 mg PO HS. (5) Obstructive sleep apnea on CPAP: Code(s): G47.33 - Obstructive sleep apnea (adult) (pediatric) Status: Acute Assessment and Plan: * CPAP at night and while napping. (6) Essential (primary) hypertension: Code(s): I10 - Essential (primary) hypertension Status: Acute Assessment and Plan: * Lisinopril 40 mg PO daily. 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 Subjective Date/time seen: 10/13/24 10:27 Interval history: Patient sitting up in bed with family at bedside. Patient and family report that this was the first seizure that he has had. Family reports that patient did not hit his head during seizure but bit tongue. Patient denies chest pain, palpitat ions, headache, dizziness, nausea, or vomiting. Review of Systems Review of Systems: All systems reviewed & are unremarkable except as noted in HPI and below Exam Const: General: comfortable and no acute distress Neck: Neck: supple Resp: Effort & Inspection: normal respiratory effort Auscultation: clear to auscultation bilaterally Cardio: Rate: regular rate Rhythm: regular rhythm Other: Telemetry- SR 62. GI: GI Palp: Yes Soft to palpation Auscultation: normal bowel sounds Skin: General skin exam: no rashes or lesions noted Neuro: Speech: normal speech Extrem: General: no pedal edema Psych: Mental Status: mental status grossly normal Affect: normal affect Objective Data Vital Signs Vital Signs: Vital Signs - 24 hr 10/12/24 10:53 10/12/24 11:38 10/12/24 13:04 Temperature Pulse Rate 62 64 64 Respiratory Rate 16 16 16 Blood Pressure 138/78 144/80 H 146/77 H Pulse Oximetry 96 97 97 Oxygen Delivery 10/12/24 15:40 10/12/24 16:35 10/12/24 20:00 Temperature 97.4 F L Pulse Rate 64 61 Respiratory Rate 16 16 Blood Pressure 161/63 H 163/93 H Pulse Oximetry 98 98 Oxygen Delivery Room Air 10/12/24 20:00 10/12/24 21:00 10/12/24 22:37 Temperature 97.4 F L Pulse Rate 63 60 Respiratory Rate 18 Blood Pressure 150/62 H Pulse Oximetry 96 96 Oxygen Delivery Autopap 10/13/24 00:00 10/13/24 04:00 10/13/24 06:00 Temperature 97.1 F L Pulse Rate 61 64 57 L Respiratory Rate 18 Blood Pressure 151/68 H Pulse Oximetry 96 Oxygen Delivery 10/13/24 08:00 10/13/24 08:07 Temperature Pulse Rate Respiratory Rate Blood Pressure Pulse Oximetry 96 Oxygen Delivery Room Air Room Air Intake/Output Intake/Output: Intake & Output 10/10/24 10/11/24 10/12/24 10/13/24 23:59 23:59 23:59 23:59 Intake Total 240 500 Output Total 100 100 Balance 140 400 Meds/Results Medications: Active Medications Generic Name Dose Route Start Last Admin Trade Name Freq PRN Reason Stop Dose Admin Acetaminophen 650 mg 10/12/24 17:43 Acetaminophen 325 Mg Tablet PO Q6H PRN Mild Pain (1-3) or Fever Amiodarone HCl 100 mg 10/13/24 09:00 10/13/24 08:37 Amiodarone Hcl 100 Mg Tablet PO 100 mg DAILY RICKY Administration Aspirin 81 mg 10/13/24 09:00 10/13/24 08:35 Aspirin 81 Mg Chewable Tablet PO 81 mg DAILY RICKY Administration Dextrose 12.5 gm 10/12/24 17:43 Dextrose 50% 25 Gm/50 Ml Syringe IV PUSH PRN PRN Hypoglycemia Protocol Finasteride 5 mg 10/13/24 09:00 10/13/24 08:35 Finasteride 5 Mg Tablet PO 5 mg DAILY RICKY Administration Glucagon 1 mg 10/12/24 17:43 Glucagon For Inj 1 Mg Vial IM PRN PRN Hypoglycemia Protocol Glucose 15 gm 10/12/24 17:43 Glucose Oral Gel 15 Gm Of Glucse In 37.5 Gm Tube PO PRN PRN Hypoglycemia Protocol Dextrose 1,000 mls @ 100 mls/hr 10/12/24 17:43 Dextrose 5% 1,000 Ml IVPB PRN PRN Hypoglycemia Protocol Insulin Aspart 3 - 6 units 10/13/24 08:00 10/13/24 08:35 Insulin Aspart (*Bkc) 100 Units/Ml SUB-Q Not Given TIDWM RICKY Protocol Insulin Aspart 1 - 3 units 10/12/24 21:00 10/12/24 21:28 Insulin Aspart (*Bkc) 100 Units/Ml SUB-Q Not Given HS RICKY Protocol Lisinopril 40 mg 10/13/24 09:00 10/13/24 08:35 Lisinopril 20 Mg Tablet PO 40 mg DAILY RICKY Administration Melatonin 10 mg 10/12/24 21:00 10/12/24 20:24 Melatonin 5 Mg Tablet PO 10 mg HS RICKY Administration Methocarbamol 500 mg 10/12/24 21:00 10/13/24 08:35 Methocarbamol 500 Mg Tablet PO 500 mg Q12HR RICKY Administration Pantoprazole Sodium 40 mg 10/13/24 09:00 10/13/24 08:35 Pantoprazole 40 Mg Tablet PO 40 mg QAM RICKY Administration Perflutren Lipid Microsphere 0 ml 10/12/24 16:29 Perflutren Lipid Microspheres 1.5 Ml Vial Diluted To 10 Ml Total Volume IV PUSH 10/15/24 16:29 ONCE PRN adequate visualization Protocol Rivaroxaban 20 mg 10/13/24 21:00 Rivaroxaban 20 Mg Tablet PO HS [facility] Radiology Results: ITS Impressions Head/Neck CTA 10/12/24 10:43 IMPRESSION: No acute intracranial findings. CTA brain carotid Ordering provider: Danie Goel MD History: . AMS . Comparison: None. Technique: CT angiogram head and neck was performed following timed intravenous injection of contrast. Thin slice axial images and reformatted coronal images were obtained. Three dimensional reformatted images of the brain were also obtained using a [employer] workstation. Radiation reduction technique utilized.The dose-length product was 1908.16 mGy-cm. 100 mL Omnipaque 350 was given IV. FINDINGS: HEAD: --ANTERIOR AND MIDDLE CEREBRAL ARTERIES AND BRANCHES: Normal caliber and contour. --INTERNAL CAROTID ARTERIES: Mild atheromatous disease but minimal bilateral stenosis. No occlusion. --BASILAR ARTERY AND BRANCHES: Atherosclerotic changes in both vertebral arteries more on the right side with moderate stenosis bilaterally. Otherwise, Normal caliber and contour. --POSTERIOR CEREBRAL ARTERIES: Normal caliber and contour --POSTERIOR COMMUNICATING ARTERIES: Not visualized which is probably related to congenital absence or small size. --ANEURYSM: None visualized. NECK: --RIGHT CERVICAL CAROTID SYSTEM: Mild atheromatous disease of the carotid bulb and proximal internal carotid artery without significant stenosis. Percent stenosis per NASCET criteria is 10%. No carotid dissection. Otherwise, no significant atheromatous disease or stenosis of the cervical carotid system. --LEFT CERVICAL CAROTID SYSTEM: Mild atheromatous disease of the carotid bulb and proximal internal carotid artery without significant stenosis. Percent stenosis per NASCET criteria is 10%. No carotid dissection. Otherwise, no significant atheromatous disease or stenosis of the cervical carotid system. --VERTEBRAL ARTERIES: Normal.- -VISUALIZED AORTIC ARCH AND BRANCHING VESSELS: Mild atheromatous disease but no significant stenosis. --SOFT TISSUES: A right thyroid nodule. Ultrasound evaluation advised. --CERVICAL SPINE: Age appropriate degenerative changes. IMPRESSION: 1. CTA neck. Percent stenosis per NASCET criteria is 10%. 2. No evidence of occlusion or significant stenosis seen in the intracranial vessels except for moderate degree in the both vertebral arteries. Labs Labs: Laboratory Results - last 24 hr 10/12/24 10/12/24 10/12/24 10:14 10:15 11:40 WBC 9.8 RBC 4.52 L Hgb 12.0 L Hct 37.9 L MCV 83.8 MCH 26.5 MCHC 31.7 L RDW 14.9 H Plt Count 185 MPV 11.0 H Immature Gran % (Auto) Not Reportable Neut % (Auto) Not Reportable Lymph % (Auto) Not Reportable [place] % (Auto) Not Reportable Eos % (Auto) Not Reportable Baso % (Auto) Not Reportable Lymph # (Auto) Not Reportable [place] # (Auto) Not Reportable Eos # (Auto) Not Reportable Baso # (Auto) Not Reportable Abs Immat Gran (auto) Not Reportable Absolute Neuts (auto) Not Reportable Absolute Nucleated RBC Not Reportable Total Counted 100 Neutrophils % (Manual) 79 H Band Neutrophils % 10 H Lymphocytes % (Manual) 7 L Monocytes % (Manual) 4 Nucleated RBC % Not Reportable Abs Neuts (Manual) 8.72 H Abs Lymphs (Manual) 0.68 L Abs Monocytes (Manual) 0.39 Platelet Estimate Adequate Anisocytosis 1+ Schistocytes None seen PT 20.0 H INR 1.7 APTT 31.3 Sodium 136 L Potassium 3.7 Chloride 105 Carbon Dioxide 27 Anion Gap 4 BUN 14 Creatinine 1.00 Estim Creat Clear Calc 59 Estimated GFR > 60 Glucose 194 H POC Capillary Glucose Hemoglobin A1c Calcium 8.4 Magnesium Total Bilirubin 0.7 AST 25 ALT 17 Alkaline Phosphatase 66 Total Protein 6.0 L Albumin 3.7 Vitamin B12 Folate Urine Color Yellow Urine Appearance Clear Urine pH 6.5 Ur Specific [place] 1.043 H Urine Protein Negative Urine Glucose (UA) Trace H Urine Ketones Negative Ur Blood (Man) Negative Urine Nitrate Negative Urine Bilirubin Negative Urine Urobilinogen 0.2 Leukocyte Esterase Rfl Negative Influenza A (RT-PCR) Negative Influenza B (RT-PCR) Negative RSV (RT-PCR) Negative SARS-CoV-2 RNA (RT-PCR) Negative 10/12/24 10/13/24 10/13/24 20:52 06:10 06:11 WBC 5.3 RBC 4.42 L Hgb 11.7 L Hct 37.2 L MCV 84.2 MCH 26.5 MCHC 31.5 L RDW 15.1 H Plt Count 189 MPV 12.1 H Immature Gran % (Auto) Neut % (Auto) Lymph % (Auto) [place] % (Auto) Eos % (Auto) Baso % (Auto) Lymph # (Auto) [place] # (Auto) Eos # (Auto) Baso # (Auto) Abs Immat Gran (auto) Absolute Neuts (auto) Absolute Nucleated RBC Total Counted Neutrophils % (Manual) Band Neutrophils % Lymphocytes % (Manual) Monocytes % (Manual) Nucleated RBC % Abs Neuts (Manual) Abs Lymphs (Manual) Abs Monocytes (Manual) Platelet Estimate Anisocytosis Schistocytes PT INR APTT Sodium 137 Potassium 3.7 Chloride 103 Carbon Dioxide 29 Anion Gap 5 BUN 15 Creatinine 1.10 Estim Creat Clear Calc 54 Estimated GFR > 60 Glucose 145 H POC Capillary Glucose 158 H Hemoglobin A1c 7.1 H Calcium 8.5 Magnesium 2.0 Total Bilirubin AST ALT Alkaline Phosphatase Total Protein Albumin Vitamin B12 382.0 Folate 7.0 Urine Color Urine Appearance Urine pH Ur Specific [place] Urine Protein Urine Glucose (UA) Urine Ketones Ur Blood (Man) Urine Nitrate Urine Bilirubin Urine Urobilinogen Leukocyte Esterase Rfl Influenza A (RT-PCR) Influenza B (RT-PCR) RSV (RT-PCR) SARS-CoV-2 RNA (RT-PCR) 10/13/24 07:49 WBC RBC Hgb Hct MCV MCH MCHC RDW Plt Count MPV Immature Gran % (Auto) Neut % (Auto) Lymph % (Auto) [place] % (Auto) Eos % (Auto) Baso % (Auto) Lymph # (Auto) [place] # (Auto) Eos # (Auto) Baso # (Auto) Abs Immat Gran (auto) Absolute Neuts (auto) Absolute Nucleated RBC Total Counted Neutrophils % (Manual) Band Neutrophils % Lymphocytes % (Manual) Monocytes % (Manual) Nucleated RBC % Abs Neuts (Manual) Abs Lymphs (Manual) Abs Monocytes (Manual) Platelet Estimate Anisocytosis Schistocytes PT INR APTT Sodium Potassium Chloride Carbon Dioxide Anion Gap BUN Creatinine Estim Creat Clear Calc Estimated GFR Glucose POC Capillary Glucose 151 H Hemoglobin A1c Calcium Magnesium Total Bilirubin AST ALT Alkaline Phosphatase Total Protein Albumin Vitamin B12 Folate Urine Color Urine Appearance Urine pH Ur Specific [place] Urine Protein Urine Glucose (UA) Urine Ketones Ur Blood (Man) Urine Nitrate Urine Bilirubin Urine Urobilinogen Leukocyte Esterase Rfl Influenza A (RT-PCR) Influenza B (RT-PCR) RSV (RT-PCR) SARS-CoV-2 RNA (RT-PCR) Quality VTE Prophylaxis VTE prophylaxis: mechanical ordered
[2024-10-13 12:04] LABS: Glucose Point of Care 175 mg/dl (65-105)
[2024-10-13 18:48] LABS: Glucose Point of Care 182 mg/dl (65-105)
[2024-10-13] MEDS: RIVAROXABAN 20 MG TABLET PO (20:10)
[2024-10-13] MEDS: MELATONIN 5 MG TABLET 10 MG PO (20:10)
[2024-10-13 21:00] LABS: Glucose Point of Care 173 mg/dl (65-105)
[2024-10-14] VITALS: PULSE 65
[2024-10-14 04:00] VITALS: PULSE 56
[2024-10-14 06:00] VITALS: BP 151/68; PULSE 54; RESP 20; TEMP 36.2; O2SAT 98
[2024-10-14 07:18] LABS: Basophils Percent Auto 0.8 % (0.2-1.2); Eosinophils Absolute Auto 0.1 K/mm3 (0-0.3); Eosinophils Percent Auto 2.1 % (0-4.4); Hematocrit 41.5 % (42.0-52.0); Immature Granulocyte Absolute 0.02 K/mm3 (0.00-0.031); Immature Granulocyte Percent A 0.4 % (0-0.5); Lymphocytes Absolute Auto 0.72 K/mm3 (0.9-3.2); Lymphocytes Percent Auto 13.7 % (18.3-44.2); Mean Corpuscular HGB Conc 31.3 g/dl (32-36); Mean Corpuscular Hemoglobin 26.4 pg (26-34); Mean Corpuscular Volume 84.2 fl (80-100); Mean Platelet Volume 11.6 fl (7.4-10.4); Monocytes Absolute Auto 0.5 K/mm3 (0.1-0.6); Monocytes Percent Auto 8.6 % (2.6-8.5); Neutrophils Absolute Auto 3.9 K/mm3 (1.3-6.7); Neutrophils Percent Auto 74.4 % (45.5-73.1); Platelet Count Result 201 k/mm3 (150-375); Red Blood Count 4.93 M/mm3 (4.6-6.20); Red Cell Distribution Width 14.9 % (11.5-14.5); White Blood Count 5.2 K/mm3 (4.5-10.0)
[2024-10-14 07:26] LABS: Alanine Aminotransferase 20 U/L (6-50); Albumin Level 4.2 g/dL (3.5-5.1); Alkaline Phosphatase 67 U/L (38-126); Anion Gap 4 mmol/L (4-12); Aspartate Amino Transferase 40 U/L (17-59); Bilirubin,Total 1.2 mg/dL (0.2-1.3); Blood Urea Nitrogen 14 mg/dL (9-20); Calcium 8.9 mg/dL (8.4-10.2); Carbon Dioxide 28 mmol/L (22-30); Chloride 104 mmol/L (98-107); Estimated CRCL calculation 54 ml/min; Estimated Glomerular Filt Rate > 60; Glucose 146 mg/dL (65-110); Potassium 3.8 mmol/L (3.4-5.0); Sodium 136 mmol/L (137-145)
[2024-10-14 08:40] LABS: Glucose Point of Care 141 mg/dl (65-105)
[2024-10-14 08:42] VITALS: PULSE 63
[2024-10-14] MEDS: PANTOPRAZOLE 40 MG TABLET PO (08:42)
[2024-10-14] MEDS: methocarbamoL 500 MG TABLET PO (08:42)
[2024-10-14] MEDS: FINASTERIDE 5 MG TABLET PO (08:42)
[2024-10-14] MEDS: ASPIRIN 81 MG CHEWABLE TABLET PO (08:42)
[2024-10-14] MEDS: lisinopriL 20 MG TABLET 40 MG PO (08:42)
[2024-10-14] MEDS: AMIODARONE HCL 100 MG TABLET PO (08:42)
--- NOTE | 2024-10-14 09:27 | WPDNEUROLOGY ---
Neurology EEG Report General Information Date of Study: 10/14/24 TEST Electroencephalogram DIAGNOSIS Suspected seizure CONDITION OF RECORDING Bedside recording EEG NUMBER [id number] CLINICAL HISTORY Patient was sleeping in bed that he woke up in the rocking chair and was confused EEG DESCRIPTION During wakefulness the background activity consists of posterior dominant alpha rhythm at 8 hertz with an amplitude of 20-40 microvolts which appears moderately formed and reactive to eye opening. Anteriorly low amplitude mixed frequency activity was seen. There is a moderate anteroposterior gradient. Hyperventilation or photic stimulation were not performed. Stage I and 2 sleep were recorded during which vertex waves sleep spindles and K complexes were seen.
--- NOTE | 2024-10-14 09:48 | PM.IMPN ---
Subjective Date/time seen: 10/14/24 09:48 Review of Systems Review of Systems: All systems reviewed & are unremarkable except as noted in HPI and below Objective Data Vital Signs Vital Signs: Vital Signs - 24 hr 10/13/24 12:00 10/13/24 14:00 10/13/24 16:00 Temperature 97.3 F L Pulse Rate 56 L 59 L 62 Respiratory Rate 18 Blood Pressure 147/72 H Pulse Oximetry 96 Oxygen Delivery 10/13/24 19:37 10/13/24 20:00 10/13/24 22:00 Temperature 97.4 F L Pulse Rate 59 L 59 L Respiratory Rate 18 Blood Pressure 165/79 H Pulse Oximetry 97 Oxygen Delivery Room Air 10/14/24 00:00 10/14/24 04:00 10/14/24 06:00 Temperature 97.2 F L Pulse Rate 65 56 L 54 L Respiratory Rate 20 Blood Pressure 151/68 H Pulse Oximetry 98 Oxygen Delivery 10/14/24 08:42 Temperature Pulse Rate 63 Respiratory Rate Blood Pressure Pulse Oximetry Oxygen Delivery Intake/Output Intake/Output: Intake & Output 10/11/24 10/12/24 10/13/24 10/14/24 23:59 23:59 23:59 23:59 Intake Total 240 1220 700 Output Total 100 102 Balance 140 1118 700 Meds/Results Medications: Active Medications Generic Name Dose Route Start Last Admin Trade Name Freq PRN Reason Stop Dose Admin Acetaminophen 650 mg 10/12/24 17:43 Acetaminophen 325 Mg Tablet PO Q6H PRN Mild Pain (1-3) or Fever Amiodarone HCl 100 mg 10/13/24 09:00 10/14/24 08:42 Amiodarone Hcl 100 Mg Tablet PO 100 mg DAILY RICKY Administration Aspirin 81 mg 10/13/24 09:00 10/14/24 08:42 Aspirin 81 Mg Chewable Tablet PO 81 mg DAILY RICKY Administration Dextrose 12.5 gm 10/12/24 17:43 Dextrose 50% 25 Gm/50 Ml Syringe IV PUSH PRN PRN Hypoglycemia Protocol Finasteride 5 mg 10/13/24 09:00 10/14/24 08:42 Finasteride 5 Mg Tablet PO 5 mg DAILY RICKY Administration Glucagon 1 mg 10/12/24 17:43 Glucagon For Inj 1 Mg Vial IM PRN PRN Hypoglycemia Protocol Glucose 15 gm 10/12/24 17:43 Glucose Oral Gel 15 Gm Of Glucse In 37.5 Gm Tube PO PRN PRN Hypoglycemia Protocol Dextrose 1,000 mls @ 100 mls/hr 10/12/24 17:43 Dextrose 5% 1,000 Ml IVPB PRN PRN Hypoglycemia Protocol Insulin Aspart 3 - 6 units 10/13/24 08:00 10/14/24 08:43 Insulin Aspart (*Bkc) 100 Units/Ml SUB-Q Not Given TIDWM RICKY Protocol Insulin Aspart 1 - 3 units 10/12/24 21:00 10/13/24 19:55 Insulin Aspart (*Bkc) 100 Units/Ml SUB-Q Not Given HS RICKY Protocol Lisinopril 40 mg 10/13/24 09:00 10/14/24 08:42 Lisinopril 20 Mg Tablet PO 40 mg DAILY RICKY Administration Melatonin 10 mg 10/12/24 21:00 10/13/24 20:10 Melatonin 5 Mg Tablet PO 10 mg HS RICKY Administration Methocarbamol 500 mg 10/12/24 21:00 10/14/24 08:42 Methocarbamol 500 Mg Tablet PO 500 mg Q12HR RICKY Administration Pantoprazole Sodium 40 mg 10/13/24 09:00 10/14/24 08:42 Pantoprazole 40 Mg Tablet PO 40 mg QAM RICKY Administration Perflutren Lipid Microsphere 0 ml 10/12/24 16:29 Perflutren Lipid Microspheres 1.5 Ml Vial Diluted To 10 Ml Total Volume IV PUSH 10/15/24 16:29 ONCE PRN adequate visualization Protocol Rivaroxaban 20 mg 10/13/24 21:00 10/13/24 20:10 Rivaroxaban 20 Mg Tablet PO 20 mg HS RICKY Administration Radiology Results: ITS Impressions Head/Neck CTA 10/12/24 10:43 IMPRESSION: No acute intracranial findings. CTA brain carotid Ordering provider: Danie Goel MD History: . AMS . Comparison: None. Technique: CT angiogram head and neck was performed following timed intravenous injection of contrast. Thin slice axial images and reformatted coronal images were obtained. Three dimensional reformatted images of the brain were also obtained using a [employer] workstation. Radiation reduction technique utilized.The dose-length product was 1908.16 mGy-cm. 100 mL Omnipaque 350 was given IV. FINDINGS: HEAD: --ANTERIOR AND MIDDLE CEREBRAL ARTERIES AND BRANCHES: Normal caliber and contour. --INTERNAL CAROTID ARTERIES: Mild atheromatous disease but minimal bilateral stenosis. No occlusion. --BASILAR ARTERY AND BRANCHES: Atherosclerotic changes in both vertebral arteries more on the right side with moderate stenosis bilaterally. Otherwise, Normal caliber and contour. --POSTERIOR CEREBRAL ARTERIES: Normal caliber and contour --POSTERIOR COMMUNICATING ARTERIES: Not visualized which is probably related to congenital absence or small size. --ANEURYSM: None visualized. NECK: --RIGHT CERVICAL CAROTID SYSTEM: Mild atheromatous disease of the carotid bulb and proximal internal carotid artery without significant stenosis. Percent stenosis per NASCET criteria is 10%. No carotid dissection. Otherwise, no significant atheromatous disease or stenosis of the cervical carotid system. --LEFT CERVICAL CAROTID SYSTEM: Mild atheromatous disease of the carotid bulb and proximal internal carotid artery without significant stenosis. Percent stenosis per NASCET criteria is 10%. No carotid dissection. Otherwise, no significant atheromatous disease or stenosis of the cervical carotid system. --VERTEBRAL ARTERIES: Normal.- -VISUALIZED AORTIC ARCH AND BRANCHING VESSELS: Mild atheromatous disease but no significant stenosis. --SOFT TISSUES: A right thyroid nodule. Ultrasound evaluation advised. --CERVICAL SPINE: Age appropriate degenerative changes. IMPRESSION: 1. CTA neck. Percent stenosis per NASCET criteria is 10%. 2. No evidence of occlusion or significant stenosis seen in the intracranial vessels except for moderate degree in the both vertebral arteries. Brain MRI 10/13/24 10:02 IMPRESSION: 1. No acute intracranial process. 2. 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 3. 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 Labs Labs: Laboratory Results - last 24 hr 10/13/24 10/13/24 10/13/24 12:02 16:49 19:46 WBC RBC Hgb Hct MCV MCH MCHC RDW Plt Count MPV Immature Gran % (Auto) Neut % (Auto) Lymph % (Auto) [place] % (Auto) Eos % (Auto) Baso % (Auto) Lymph # (Auto) [place] # (Auto) Eos # (Auto) Baso # (Auto) Abs Immat Gran (auto) Absolute Neuts (auto) Absolute Nucleated RBC Nucleated RBC % Sodium Potassium Chloride Carbon Dioxide Anion Gap BUN Creatinine Estim Creat Clear Calc Estimated GFR Glucose POC Capillary Glucose 175 H 182 H 173 H Calcium Total Bilirubin AST ALT Alkaline Phosphatase Total Protein Albumin 10/14/24 10/14/24 06:44 08:34 WBC 5.2 RBC 4.93 Hgb 13.0 L Hct 41.5 L MCV 84.2 MCH 26.4 MCHC 31.3 L RDW 14.9 H Plt Count 201 MPV 11.6 H Immature Gran % (Auto) 0.4 Neut % (Auto) 74.4 H Lymph % (Auto) 13.7 L [place] % (Auto) 8.6 H Eos % (Auto) 2.1 Baso % (Auto) 0.8 Lymph # (Auto) 0.72 L [place] # (Auto) 0.5 Eos # (Auto) 0.1 Baso # (Auto) 0.0 Abs Immat Gran (auto) 0.02 Absolute Neuts (auto) 3.9 Absolute Nucleated RBC 0.000 Nucleated RBC % 0.0 Sodium 136 L Potassium 3.8 Chloride 104 Carbon Dioxide 28 Anion Gap 4 BUN 14 Creatinine 1.10 Estim Creat Clear Calc 54 Estimated GFR > 60 Glucose 146 H POC Capillary Glucose 141 H Calcium 8.9 Total Bilirubin 1.2 AST 40 ALT 20 Alkaline Phosphatase 67 Total Protein 7.0 Albumin 4.2
--- NOTE | 2024-10-14 10:38 | P.CONNEU_ITS ---
Assessment and Plan Assessment and plan (1) AMS (altered mental status): Code(s): R41.82 - Altered mental status, unspecified Status: Acute Assessment and Plan: Patient has been his tongue and he was confused upon awakening and he went to bed and woke up in the reclining chair. It is possible he might have had a seizure. The differential diagnosis will be with the cerebrovascular disease or transient ischemic attack but it took him nearly 8 hours after he woke up to get back to his normal senses. He did bite his tongue. EEG was normal. CT angiogram of the head and neck was also normal. MRI of the brain was essentially normal however there was some scarring in the right frontal parietal area. The radiologist thought there could be a possible AV malformation in this area which is probably insignificant nevertheless the findings were noted. I had detailed discussion with the family members about the overall findings and suggested that given his age probably putting when anti-convulsant may be a reasonable idea since many of the seizures may not even be seen particularly if they happen in sleep. In that case a Keppra XR 750 mg 2 tablets at bedtime can be given or they can start at 1 tablet and increase to 2 tablets after 2 weeks to allow and adaptation. Side effect of medications such as drowsiness need to be watched for. If they choose to go on anticonvulsants I shall be glad to follow up. Otherwise if he has any 2nd spell that could be in a portion to start him on the medication and I shall leave this up to them. We had a fairly detailed discussion about it. (2) Coronary artery disease: Code(s): I25.10 - Atherosclerotic heart disease of [place] coronary artery without angina pectoris Status: Acute (3) Paroxysmal atrial fibrillation: Code(s): I48.0 - Paroxysmal atrial fibrillation Status: Acute (4) Type 2 diabetes mellitus with hyperglycemia: Qualifiers: Diabetes mellitus custodial insulin use: without custodial use Q ualified Code(s): E11.65 - Type 2 diabetes mellitus with hyperglycemia Code(s): E11.65 - Type 2 diabetes mellitus with hyperglycemia Status: Acute (5) Obstructive sleep apnea on CPAP: Code(s): G47.33 - Obstructive sleep apnea (adult) (pediatric) Status: Acute Plan The possibility of transient ischemic attack or cerebrovascular disease is indeed a differential diagnosis. Would suggest lipid profile. He is on simvastatin 20 mg a day. He may require high intensity statin if necessary. He is already on Xarelto and that should be continued. Has a risk factor such as diabetes and sleep apnea and hypertension and atrial fibrillation are being managed and should be these should be continued. B12 level was 382. He may be referred to see a neurosurgeon regarding the remote possibility of a minor via AV malformation if the family wishes to see 1 although I doubt that any intervention would be necessary or I can arrange it if they would like me to do so. Echocardiogram also did not show any significant abnormalities. Consult date: 10/14/24 HPI: Rolf Arechiga is a 84 year old male admitted to the hospital with history that he went to bed and woke up in the chair confused and it took him 8 hours or so to get back to his normal self. He has never had any spells such as that before. He also has bitten his tongue. He was somewhat sleepy. However he was not having any headache and he also was not incontinent. The night before he is taking his grandkids to a [employer] light show where there was a lot of strobe light and the family has been wondering if he had some kind of seizure due to the strobe light but they are not sure. He never had any episode like that before. Patient is feeling back to his normal self now. He has had numerous investigations done. They history of atrial fibrillation since 2012 and he is on anticoagulation. There is also history of obstructive sleep apnea syndrome and is on CPAP. History of diabetes mellitus and his last A1c was 7.1. He is on simvastatin of a cholesterol-lowering drug. Patient lives his and his and son were present at the time of the evaluation. MRI of the brain was performed which shows a scar in the right frontoparietal area with some questionable AV malformation. Patient now ambulatory and denies any weakness in upper lower limbs. No difficulty with thinking memory. As such he does not have any difficulty with memory. He is fairly active and does housework and does his lawn work also. No other physical complaints. Review of Systems 2 Review of Systems: All systems reviewed & are unremarkable except as noted in HPI and below PMFSH Past Medical History Medical History Benign prostatic hyperplasia History of cardioversion Coronary artery disease Obstructive sleep apnea on CPAP Type 2 diabetes mellitus Atrial flutter Arthritis Osteoporosis Anticoagulant long-term use Essential (primary) hypertension Mixed hyperlipidemia Paroxysmal atrial fibrillation Surgical History Surgical History History of coronary artery stent placement (10/2012) drug-eluting stent to the LAD History of inguinal hernia repair History of cholecystectomy History of parathyroid surgery History of prostate surgery Family History Family History Mother Family history of glaucoma Family history of elevated blood lipids Hypertension Carcinoma of colon Sibling Hypertension Family history of elevated blood lipids Father Family history of elevated blood lipids Hypertension Other Family history of cardiovascular disease Family history of malignant neoplasm Social History Social History Social History: Surrogate medical decision maker: Shasta Arechiga, spouse. Code status: Full care. Smoking packs per day: 0.2 Smoking cigarettes per day: 4.0 Years smoked: 25 Smoking pack-years: 5.00 Smoking status: Former smoker Tobacco type: cigarettes Second hand tobacco smoke exposure: No Smoking end date: 04/26/75 Alcohol intake: current Drinks per week: 4 Alcohol use details: beer Substance use: never Substance use type: does not use Do You Feel Safe in your Home?: Yes Lack of Transportation: No Lack of Food: Never True Current Housing: I Have Housing Concerned About Future Housing: No Difficulty Paying Gas/Electric Bills: No Difficulty Paying for Meds: No Currently Unemployed: No Education: Decline to Answer Difficulty w/ Childcare or Family Care: No Living arrangements: with family Occupation/Education: retired Spiritual care concerns: No Meds Home Medications and Allergies Home Medications ?Medication ?Instructions ?Recorded ?Confirmed ?Type aspirin 81 mg chewable tablet 81 mg PO DAILY 11/05/19 10/12/24 History rivaroxaban 20 mg tablet (Xarelto) 20 mg PO HS 11/05/19 10/12/24 History finasteride 5 mg tablet 5 mg PO DAILY 11/16/19 10/12/24 History metformin 500 mg tablet 500 mg PO BID #180 tabs 04/30/22 10/12/24 Rx amiodarone 100 mg tablet 100 mg PO DAILY 10/12/24 10/12/24 History lisinopril 40 mg tablet 40 mg PO DAILY 10/12/24 10/12/24 History melatonin 5 mg capsule 10 mg PO HS sleep 10/12/24 10/12/24 History methocarbamol 500 mg tablet 500 mg PO BID 10/12/24 10/12/24 History omeprazole 20 mg capsule,delayed 20 mg PO DAILY 10/12/24 10/12/24 History release simvastatin 20 mg tablet 20 mg PO QPM 10/12/24 10/12/24 History Allergies Allergy/AdvReac Type Severity Reaction Status Date / Time morphine AdvReac Intermediate Agitated Verified 10/12/24 10:07 Vital Signs Vital Signs - 24 hr 10/13/24 12:00 10/13/24 14:00 10/13/24 16:00 Temperature 97.3 F L Pulse Rate 56 L 59 L 62 Respiratory Rate 18 Blood Pressure 147/72 H Pulse Oximetry 96 Oxygen Delivery 10/13/24 19:37 10/13/24 20:00 10/13/24 22:00 Temperature 97.4 F L Pulse Rate 59 L 59 L Respiratory Rate 18 Blood Pressure 165/79 H Pulse Oximetry 97 Oxygen Delivery Room Air 10/14/24 00:00 10/14/24 04:00 10/14/24 06:00 Temperature 97.2 F L Pulse Rate 65 56 L 54 L Respiratory Rate 20 Blood Pressure 151/68 H Pulse Oximetry 98 Oxygen Delivery 10/14/24 08:42 Temperature Pulse Rate 63 Respiratory Rate Blood Pressure Pulse Oximetry Oxygen Delivery Exam 2 Const: General: cooperative, well developed and alert O rientation/consciousness: patient oriented x3 HENMT: Head: atraumatic Mouth: Yes oropharynx normal Eyes: Alignment and Position: position normal Pupils: Equal, round and reactive pupils present EOM: EOMs intact bilaterally Neck: Neck: supple Resp: Effort & Inspection: normal respiratory effort Neuro: General: patient oriented x3 Cranial nerves: Yes CN's II-XII intact bilaterally, Yes facial sensation intact/muscles of mastication intact, Yes Equal, round and reactive pupils present, Yes facial symmetry and Yes Midline tongue present Cognition (Neuro): normal cognition Speech: normal speech Gait exam (Neuro): Normal gait present Motor exam (neuro): 5/5 motor strength present throughout Coordination: [id number] test normal and Normal rapid alternating movements of the distal upper extremity present (Neuro) Other: Sense of vibration decreased in lower limbs Results Labs 10/14/24 06:44 10/14/24 06:44 Labs: Short CBC 10/14/24 Range/Units 06:44 WBC 5.2 (4.5-10.0) K/mm3 Hgb 13.0 L (14.0-18.0) g/dL Hct 41.5 L (42.0-52.0) % Plt Count 201 (150-375) k/mm3 BMP 10/14/24 06:44 Sodium 136 L Potassium 3.8 Chloride 104 Carbon Dioxide 28 BUN 14 Creatinine 1.10 Glucose 146 H Calcium 8.9 Liver Function 10/14/24 Range/Units 06:44 Total Bilirubin 1.2 (0.2-1.3) mg/dL AST 40 (17-59) U/L ALT 20 (6-50) U/L Alkaline Phosphatase 67 (38-126) U/L Albumin 4.2 (3.5-5.1) g/dL
--- NOTE | 2024-10-14 10:47 | PM.DS ---
DS: Admitting Diagnosis Discharge Date 10/14/2024 Admitting Diagnosis New onset confusion and dizzy DS: Discharge Diagnosis Discharge Diagnosis (1) AMS (altered mental status): Code(s): R41.82 - Altered mental status, unspecified Status: Acute (2) Type 2 diabetes mellitus: Code(s): E11.9 - Type 2 diabetes mellitus without complications Status: Acute (3) Coronary artery disease: Code(s): I25.10 - Atherosclerotic heart disease of [place] coronary artery without angina pectoris Status: Acute (4) Paroxysmal atrial fibrillation: Code(s): I48.0 - Paroxysmal atrial fibrillation Status: Acute DS: Summary Hospital Course Hospital Course: Patient presented to the ER on 10/12 for evaluation of confusion. At around 08:00 the patient woke his up and told her that he was feeling confused. He reports that he woke up in a chair on their sun porch and was disoriented and did not recall how he had gotten there. He did not have any surface injuries however reports that is tongue hurt and he has significant bruising and evidence of tongue bite on exam. In the ED: He was afebrile on arrival with stable vital signs. Labs were significant for a WBC count of 9.8, hemoglobin 12.0, platelet 185, sodium 136, potassium 3.7, BUN 14, creatinine 1.10, glucose 194, carbon dioxide 27. CTA of the head and neck showed no acute intracranial findings, and no evidence of occlusion or significant stenosis in the intracranial vessels except for moderate degree in both vertebral arteries. EKG showed sinus rhythm without acute ST segment deviations. Echocardiogram: Summary 1. Left ventricular chamber dimension is normal. 2. Left ventricular systolic function is normal, estimated at 60-65%. 3. There is mildly increased left ventricular wall thickness. 4. The left ventricular diastolic function is grade I diastolic dysfunction. 5. Right ventricular chamber dimension is mildly enlarged. 6. Right ventricular systolic function is normal. 7. Left atrial chamber dimension is severely enlarged. 8. There is mild aortic valve regurgitation. 9. There is mild to moderate mitral valve regurgitation. 10. There is mild to moderate tricuspid valve regurgitation. 11. There is mild pulmonic regurgitation. Neurology consulted and stated it is possible he might have had a seizure. The differential diagnosis will be with the cerebrovascular disease or transient ischemic attack but it took him nearly 8 hours after he woke up to get back to his normal senses. He did bite his tongue. EEG was normal. CT angiogram of the head and neck was also normal. MRI of the brain was essentially normal however there was some scarring in the right frontal parietal area. The radiologist thought there could be a possible AV malformation in this area which is probably insignificant nevertheless the findings were noted. Patient started on Keppra XR 750 mg PO 1 tablet for 2 weeks at bedtime then increase to 2 tablets at bedtime. Patient and family agreeable to start Keppra/ Patient to follow up with Dr. Flowers. Status at Discharge Functional status at discharge: independent ambulation Overall status at discharge: patient is progressing back to baseline Time Spent with Patient Time attestation: Total time spent providing and/or coordinating discharge services: Time spent: Greater than 30 minutes Exam Const: General: comfortable and no acute distress Neck: Neck: supple Resp: Effort & Inspection: normal respiratory effort Auscultation: clear to auscultation bilaterally Cardio: Rate: regular rate Rhythm: regular rhythm Other: Telemetry- SR 65 GI: GI Palp: Yes Soft to palpation Auscultation: normal bowel sounds Skin: General skin exam: no rashes or lesions noted Extrem: General: normal to inspection Psych: Mental Status: mental status grossly normal Affect: normal affect DS: Data Data Completed and Pending Labs on day of discharge: Labs from last 24 hours 10/14/24 10/14/24 10/13/24 08:34 06:44 19:46 WBC 5.2 RBC 4.93 Hgb 13.0 L Hct 41.5 L MCV 84.2 MCH 26.4 MCHC 31.3 L RDW 14.9 H Plt Count 201 MPV 11.6 H Immature Gran % (Auto) 0.4 Neut % (Auto) 74.4 H Lymph % (Auto) 13.7 L [place] % (Auto) 8.6 H Eos % (Auto) 2.1 Baso % (Auto) 0.8 Lymph # (Auto) 0.72 L [place] # (Auto) 0.5 Eos # (Auto) 0.1 Baso # (Auto) 0.0 Abs Immat Gran (auto) 0.02 Absolute Neuts (auto) 3.9 Absolute Nucleated RBC 0.000 Nucleated RBC % 0.0 Sodium 136 L Potassium 3.8 Chloride 104 Carbon Dioxide 28 Anion Gap 4 BUN 14 Creatinine 1.10 Estim Creat Clear Calc 54 Estimated GFR > 60 Glucose 146 H POC Capillary Glucose 141 H 173 H Calcium 8.9 Total Bilirubin 1.2 AST 40 ALT 20 Alkaline Phosphatase 67 Total Protein 7.0 Albumin 4.2 Triglycerides Pending Cholesterol Pending LDL Cholesterol Direct Pending HDL Direct Pending 10/13/24 10/13/24 16:49 12:02 WBC RBC Hgb Hct MCV MCH MCHC RDW Plt Count MPV Immature Gran % (Auto) Neut % (Auto) Lymph % (Auto) [place] % (Auto) Eos % (Auto) Baso % (Auto) Lymph # (Auto) [place] # (Auto) Eos # (Auto) Baso # (Auto) Abs Immat Gran (auto) Absolute Neuts (auto) Absolute Nucleated RBC Nucleated RBC % Sodium Potassium Chloride Carbon Dioxide Anion Gap BUN Creatinine Estim Creat Clear Calc Estimated GFR Glucose POC Capillary Glucose 182 H 175 H Calcium Total Bilirubin AST ALT Alkaline Phosphatase Total Protein Albumin Triglycerides Cholesterol LDL Cholesterol Direct HDL Direct Discharge Plan Discharge Attending physician on discharge: Jakob Richardson Consulting providers: Devon Garcia Discharging Clinician: Ca Yu Anticipated Discharge Date/Time: 10/14/24 12:00 Patient Disposition: Home, Self-Care Activity: may shower and as tolerated Diet: diabetic Discharge Instructions: Report any seizure like activity or confusion to provider. Increase activity as tolerated. Patient Instructions: Antibiotic Form, Levetiracetam (By mouth), Rivaroxaban (By mouth) Patient Language: Uz[place] Stand Alone Forms: General Discharge Information Follow-up/Referrals: Guerda Flowers MD [Physician] - 2 Weeks Oralia,Marcin Balderas MD [Primary Care Provider] - 1 Week Discharge Medications: New levetiracetam [Keppra XR] 750 mg tablet extended release 24 hr 750 mg PO .bedtime Qty: 42 0RF Rx Instructions: Take 1 tablet at bedtime for the first two weeks. Increase to 2 tablets at bedtime after 2 weeks. Continued aspirin 81 mg Tablet,Chewable 81 mg PO DAILY Xarelto 20 mg tablet 20 mg PO HS finasteride 5 mg tablet 5 mg PO DAILY lisinopril 40 mg tablet 40 mg PO DAILY amiodarone 100 mg tablet 100 mg PO DAILY methocarbamol 500 mg tablet 500 mg PO BID omeprazole 20 mg capsule,delayed release(DR/EC) 20 mg PO DAILY simvastatin 20 mg tablet 20 mg PO QPM melatonin 5 mg capsule 10 mg PO HS metformin 500 mg tablet 500 mg PO BID Qty: 180 1RF Date of admission: 10/12/24 12:41 Primary Care Provider: Oralia,Marcin Balderas Admitting Provider: Jakob Richardson Attending physician on admission: Jakob Richardson Condition: Stable Hospitalist MIPS Heart Failure (Exclusion) Patient has history of Heart Transplant or Left Ventricular Assistive Device?: No IF YES, STOP HERE Heart Failure (Qualifier) Patient has current or prior documentation of LVEF less than or equal to 40%, or mod/servere depressed LVSF?: No IF NO, STOP HERE
[2024-10-14 11:00] LABS: Cholesterol 143 mg/dL (0-200); HDL Direct 42 mg/dL; Triglycerides 92 mg/dL (<150)
[2024-10-14 11:10] LABS: LDL Cholesterol Direct 69 mg/dL
[2024-10-14 11:56] LABS: Glucose Point of Care 147 mg/dl (65-105)
== END 2024-10-14 12:40 | disposition home or self-care (01) ==
LOC: ANHED 12:20 → ANH3MEDSUR 13:34
PROVIDERS: Nurse Practitioner Family; Physician Assistant; Psychiatry & Neurology Neurology; Admitting Provider Hospitalist; Emergency Provider Emergency Medicine; PCP Family Medicine; Visit Provider Hospitalist
DX: R41.82 Altered mental status, unspecified (principal); R56.9 Unspecified convulsions; E11.65 Type 2 diabetes mellitus with hyperglycemia; I25.10 Atherosclerotic heart disease of native coronary artery without angina pectoris; I48.0 Paroxysmal atrial fibrillation; G47.33 Obstructive sleep apnea (adult) (pediatric); Z99.89 Dependence on other enabling machines and devices; I10 Essential (primary) hypertension; I48.92 Unspecified atrial flutter; E78.2 Mixed hyperlipidemia; K21.9 Gastro-esophageal reflux disease without esophagitis; M81.0 Age-related osteoporosis without current pathological fracture; M19.90 Unspecified osteoarthritis, unspecified site; Z20.822 Contact with and (suspected) exposure to COVID-19; Z87.891 Personal history of nicotine dependence; Z79.01 Long term (current) use of anticoagulants; Z79.82 Long term (current) use of aspirin; Z79.899 Other long term (current) drug therapy; Z95.5 Presence of coronary angioplasty implant and graft
CPT/HCPCS: 36415; 70496; 70498; 70553; 80048; 80053; 80061; 81003; 82607; 82746; 82948; 83036; 83735; 85025; 85027; 85610; 85730; 87637; 93005; 93306; 95816; 96374; 99285; A9270; A9577; G0378; J2060; Q9967

== ENCOUNTER 2024-10-22 08:38 | Emergency (ER) | payer OTHER, SELFPAY ==
[2024-10-22] VITALS (16 sets, daily range): BP systolic 134–188; BP diastolic 60–101; PULSE 51–66; RESP 12–18; TEMP 36.3–37.1; O2SAT 92–100
--- NOTE | ~2024-10-22 | XR_ITS ---
EXAMINATION: XR chest 1V DATE: 10/22/2024 10:22 INDICATION: Left arm pain and weakness. TECHNIQUE: A single frontal view of the chest was obtained. COMPARISON: Chest 2 views 11/25/16, CT abdomen and pelvis 09/24/2019 FINDINGS: There is mild atelectasis at left lung base. No pleural effusion or pneumothorax. Cardiomeg mukul is noted. IMPRESSION: 1. Mild atelectasis at left lung base. 2. Cardiomegaly. Reviewed, dictated and finalized at location A. FACTURERS SERVICE REPRESENTATIVE
--- NOTE | ~2024-10-22 | CT_ITS ---
EXAMINATION: CTA brain carotid DATE: 10/22/2024 10:20 INDICATION: Left upper and lower extremity numbness and tingling. TECHNIQUE: Computed tomographic angiography (CTA) of the head was performed without and with 100 mL O mnipaque-350 intravenous contrast. CTA of the neck was performed with intravenous contrast. Automated exposure control and iterative reconstruction technique were employed. The dose-length product was 1 902.04 mGy-cm. Maximum intensity projection and volume rendered 3D-reconstructions were created by kathleen rice technologist on a separate workstation. COMPARISON: CT 10/12/2024 FINDINGS: HEAD CTA: There is an infarct in the right frontal parietal region. There is no intracranial hemorrha ge or abnormal mass lesion. 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 The ventricles ar e normal in size. There is mucosal thickening in the paranasal sinuses. There are likely changes of o cular lens replacement surgeries. The mastoid air cells are normal. The vertebral arteries are codomi nant. There is no significant stenosis of basilar artery or the right posterior cerebral artery. Ther e is focal moderate stenosis of left posterior cerebral artery. There is no significant stenosis of i ntracranial internal carotid arteries or anterior or middle cerebral arteries. Anterior communicating artery is normal. There is no aneurysm. The posterior communicating arteries are normal. NECK CTA: There is an 8 mm nodule in right thyroid lobe, likely not clinically significant. There is no significant stenosis of the vertebral arteries. There is plaque in the proximal internal carotid a rteries. There is 0% stenosis of the proximal right internal carotid artery relative to normal dista l artery lumen diameter (NASCET criteria). There is 0% stenosis of the proximal left internal carotid artery relative to normal distal artery lumen diameter. There is severe cervical spondylosis. IMPRESSION: 1. Infarct in the right frontoparietal region, new from 10/12/2024, likely acute or subacute. 2. Focal moderate stenosis of left posterior cerebral artery. 3. 0% stenosis of the proximal internal carotid arteries relative to normal distal artery lumen diame ters (NASCET criteria). Reviewed, dictated and finalized at location A. EMS ANALYST DEVELOPER IMPRESSION: 1. Infarct in the right frontoparietal region, new from 10/12/2024, likely acut e or subacute. 2. Focal moderate stenosis of left posterior cerebral artery. 3. 0% stenosis of the proximal internal carotid arteries relative to normal dis omi artery lumen diameters (NASCET criteria).
--- NOTE | ~2024-10-22 | MR_ITS ---
EXAMINATION: MR brain/brain stem wo con DATE: 10/22/2024 12:14 INDICATION: Left-sided numbness and tingling. TECHNIQUE: Magnetic resonance imaging (MRI) of the brain and brainstem was performed without intraven ous contrast. COMPARISON: Brain MRI 10/13/2024, head CT 10/22/2024, CTA 10/22/24 FINDINGS: There are scattered areas of nonspecific increased T2-weighted signal intensity in the cere bral white matter, which is within normal limits for the patient's age. There is worsened increased T 2-weighted signal intensity in the right parietal lobe, consistent with subacute infarct. There is no restricted diffusion to suggest an acute component (i.e., less than one week old). The prominent blo od vessels in the right frontoparietal region seen on the prior MRI were likely from luxury perfusion rather than an arteriovenous formation. There is no abnormal mass lesion. There are a few punctate f oci of old microhemorrhage in the cerebrum on the right. The ventricles are normal in size. There is mild mucosal thickening in the ethmoid sinuses. There are likely changes of ocular lens replacement s urgeries. There are tiny bilateral mastoid effusions. IMPRESSION: 1. 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 2. Punctate foci of old microhemorrhage in the cerebrum on the right, which is most commonly secondar y to chronic hypertensive encephalopathy or amyloid angiopathy. Reviewed, dictated and finalized at location A. RIST CLIMBER IMPRESSION: 1. 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 2. Punctate foci of old microhemorrhage in the cerebrum on the right, which is most commonly secondary to chronic hypertensive encephalopathy or amyloid angio neo.
--- NOTE | 2024-10-22 09:20 | ECG_ITS ---
Test Date: 2024-10-22 10:23:32 Measurements Intervals [place] Rate: 62 P: 259 OH: 166 QRS: -4 QRSD: 174 T: 17 QT: 496 QTc: 504 Interpretive Statements SINUS RHYTHM WITH 1ST DEGREE AV BLOCK RIGHT BUNDLE BRANCH BLOCK PROBABLE LATERAL MYOCARDIAL INFARCTION , OF INDETERMINATE AGE [35 ms Q WAVE IN I/aVL/V5/V6] ABNORMAL ECG Electronically Signed On 10-22-2024 17:23:32 EMT/PARAMEDIC by Gene Tse M.D.
--- NOTE | 2024-10-22 09:20 | ED_ITS ---
HPI - Neuro Symptoms/Deficit General Chief Complaint: Neuro Symptoms/Deficit <Keegan Weiner PA-C - Last Filed: 10/22/24 18:46> Stated Complaint: weakness <Keegan Weiner PA-C - Last Filed: 10/22/24 18:46> Time Seen by Provider: 10/22/24 08:54 <Keegan Weiner PA-C - Last Filed: 10/22/24 18:46> Source: patient and family <Keegan Weiner PA-C - Last Filed: 10/22/24 18:46> Mode of arrival: EMS <Keegan Weiner PA-C - Last Filed: 10/22/24 18:46> Limitations: no limitations <Keegan Weiner PA-C - Last Filed: 10/22/24 18:46> History of Present Illness HPI Narrative: This is a 84-year-old male with PMH of CAD, TIMOTHY, T2 dm, AFib anticoagulated on Xarelto who presents to the ED for chief complaint of left upper extremity and left lower extremity paresthesias onset at 0200. Patient describes a spasm in the left arm that he has been dealing with over the past 10 days. Reports that he is being evaluated for possible new onset seizures by Neurology at [facility]. They prescribed baclofen which is primary care just increased due to him having continued spasms. States that he took double his dose of baclofen last night. He reports that he had dizziness onset this morning after the tingling. States the dizziness has resolved. Family is bedside and does note that he was moving his extremities in his sleep but did not think this was a seizure. Patient reports urinary incontinence during this episode. Family is concerned because he has been using his left side less over the past 5 days. Patient reports that 5 days ago is when the spasms. He is set to follow with Neurology and is post beginning EMGs. Last known well yesterday evening before bed. <Keegan Weiner PA-C - Last Filed: 10/22/24 18:46> Related Data Home Medications: Home Medications ?Medication ?Instructions ?Recorded ?Confirmed ?Last Taken ?Type aspirin 81 mg chewable tablet 81 mg PO DAILY 11/05/19 10/12/24 10/12/24 History rivaroxaban 20 mg tablet (Xarelto) 20 mg PO HS 11/05/19 10/12/24 10/11/24 History finasteride 5 mg tablet 5 mg PO DAILY 11/16/19 10/12/24 10/11/24 History amiodarone 100 mg tablet 100 mg PO DAILY 10/12/24 10/12/24 10/11/24 History lisinopril 40 mg tablet 40 mg PO DAILY 10/12/24 10/12/24 10/11/24 History melatonin 5 mg capsule 10 mg PO HS sleep 10/12/24 10/12/24 10/11/24 History methocarbamol 500 mg tablet 500 mg PO BID 10/12/24 10/12/24 10/11/24 History omeprazole 20 mg capsule,delayed 20 mg PO DAILY 10/12/24 10/12/24 10/11/24 History release simvastatin 20 mg tablet 20 mg PO QPM 10/12/24 10/12/24 10/11/24 History <Keegan Weiner PA-C - Last Filed: 10/22/24 18:46> Allergies/Adverse Reactions: Allergies Allergy/AdvReac Type Severity Reaction Status Date / Time morphine AdvReac Intermediate Agitated Verified 10/12/24 10:07 <Keegan Weiner PA-C - Last Filed: 10/22/24 18:46> Review of Systems 2 Review of Systems: All systems as dictated in HPI <JOSEPH Wu Last Filed: 10/22/24 18:46> [facility] Past Medical History Medical History: Medical History Benign prostatic hyperplasia History of cardioversion Coronary artery disease Obstructive sleep apnea on CPAP Type 2 diabetes mellitus Atrial flutter Arthritis Osteoporosis Anticoagulant long-term use Essential (primary) hypertension Mixed hyperlipidemia Paroxysmal atrial fibrillation <Keegan Weiner PA-C - Last Filed: 10/22/24 18:46> Surgical History Surgical History: Surgical History History of coronary artery stent placement (10/2012) drug-eluting stent to the LAD History of inguinal hernia repair History of cholecystectomy History of parathyroid surgery History of prostate surgery <JOSEPH Wu Last Filed: 10/22/24 18:46> Family History Family History: Family History Mother Family history of glaucoma Family history of elevated blood lipids Hypertension Carcinoma of colon Sibling Hypertension Family history of elevated blood lipids Father Family history of elevated blood lipids Hypertension Other Family history of cardiovascular disease Family history of malignant neoplasm <JOSEPH Wu Last Filed: 10/22/24 18:46> Social History Social History: Social History Social History: Surrogate medical decision maker: Shasta Arechiga, spouse. Code status: Full care. Smoking packs per day: 0.2 Smoking cigarettes per day: 4.0 Years smoked: 25 Smoking pack-years: 5.00 Smoking status: Former smoker Tobacco type: cigarettes Second hand tobacco smoke exposure: No Smoking end date: 04/26/75 Alcohol intake: current Drinks per week: 4 Alcohol use details: beer Substance use: never Substance use type: does not use Do You Feel Safe in your Home?: Yes Lack of Transportation: No Lack of Food: Never True Current Housing: I Have Housing Concerned About Future Housing: No Difficulty Paying Gas/Electric Bills: No Difficulty Paying for Meds: No Currently Unemployed: No Education: Decline to Answer Difficulty w/ Childcare or Family Care: No Living arrangements: with family Occupation/Education: retired Spiritual care concerns: No <JOSEPH Wu Last Filed: 10/22/24 18:46> Exam 2 Narrative: GENERAL: Well-appearing, well-nourished, and in no acute distress. HEAD: Normocephalic, atraumatic. EYES: PERRLA and EOMI. ENT: Nares clear, no rhinorrhea or epistaxis. Mucous membranes moist. Oropharynx without tonsillar hypertrophy exudate or other lesions. NECK: Supple. No adenopathy or masses. CHEST: No respiratory distress. Clear to auscultation. No wheezes rales or rhonchi HEART: Regular rate and rhythm. No murmur heard. Normal peripheral pulses. ABDOMEN: Soft, nontender, nondistended, normal active bowel sounds. MSK: Normal range of motion. No edema. SKIN: Warm, dry, no rash. NEURO: Alert and oriented x4. No dysarthria. No aphasia. No nystagmus. Cranial nerves 2-12 intact. Mildly decreased patrol community service officer strength on the left compared to right. Negative pronator drift. No motor drift to all 4 extremities. Normal fquy-[id number] bilaterally. Gjyqfi-wl-qmkc with the left hand is mildly ataxic compared to the right. PSYCH: Normal mood and affect. <Keegan Weiner PA-C - Last Filed: 10/22/24 18:46> Course WATCH HAIRSPRING ASSEMBLER/PA Physician Supervision For this patient encounter, I reviewed the WATCH HAIRSPRING ASSEMBLER or PA documentation, treatment plan, and medical decision making; and I had [id number]-[id number] time with this patient. <Danie Goel MD - Last Filed: 10/22/24 18:50> Vital Signs Vital signs: Vital Signs Temperature 97.9 F 10/22/24 08:53 Pulse Rate 66 10/22/24 08:53 Respiratory Rate 16 10/22/24 08:53 Blood Pressure 170/81 H 10/22/24 08:53 Pulse Oximetry 98 10/22/24 08:53 Oxygen Delivery Room Air 10/22/24 08:53 Temperature 97.8 F 10/22/24 18:31 Pulse Rate 56 L 10/22/24 18:31 Respiratory Rate 14 10/22/24 18:31 Blood Pressure 134/60 10/22/24 18:31 Pulse Oximetry 100 10/22/24 18:31 Oxygen Delivery Room Air 10/22/24 08:53 <Keegan Weiner PA-C - Last Filed: 10/22/24 18:46> Vital Signs Temperature 97.9 F 10/22/24 08:53 Pulse Rate 66 10/22/24 08:53 Respiratory Rate 16 10/22/24 08:53 Blood Pressure 170/81 H 10/22/24 08:53 Pulse Oximetry 98 10/22/24 08:53 Oxygen Delivery Room Air 10/22/24 08:53 Temperature 97.8 F 10/22/24 18:31 Pulse Rate 56 L 10/22/24 18:31 Respiratory Rate 14 10/22/24 18:31 Blood Pressure 134/60 10/22/24 18:31 Pulse Oximetry 100 10/22/24 18:31 Oxygen Delivery Room Air 10/22/24 08:53 <Danie Goel MD - Last Filed: 10/22/24 18:50> MDM - Neuro Symptoms/Deficit MDM Narrative Medical decision making narrative: This is a 84-year-old male who presents to the ED for chief complaint of left-sided muscle spasms and numbness to the LLE and LUE. Vitals show elevated blood pressure. Otherwise vitals are normal. Exam is remarkable for mild ataxia on the left side with left-sided [id number]. Mildly decreased patrol community service officer strength on the left hand. Cranial nerves are intact the, patient is alert oriented x4. Shows unremarkable CBC and CMP. Coags unremarkable. Chest x-ray shows mild atelectasis and cardiomegaly. CTA brain and carotid: IMPRESSION: 1. Infarct in the right frontoparietal region, new from 10/12/2024, likely acute or subacute. 2. Focal moderate stenosis of left posterior cerebral artery. 3. 0% stenosis of the proximal internal carotid arteries relative to normal distal artery lumen diameters (NASCET criteria).. I discussed the case and the above imaging findings with Neurology at [facility]. Spoke with Dr. Pino. he is requesting that we get a brain MRI done here. He is not sure that the findings of the CT scan are aligning with the patient's presentation, But is willing to accept patient for transfer pending MRI and repeat neuro exam. MRI brain: IMPRESSION: 1. 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 2. Punctate foci of old microhemorrhage in the cerebrum on the right, which is most commonly secondary to chronic hypertensive encephalopathy or amyloid angiopathy. I discussed again with the above neurologist. He would like for the patient be transferred for CVA. Admitting doctor will be Dr. Singh at [facility]. Patient and family are understanding and agreeable with the plan for transfer for stroke services. Pt will be transferred in stable condition. <Keegan Weiner PA-C - Last Filed: 10/22/24 18:46> Lab Data Result diagrams: 10/22/24 09:36 10/22/24 09:36 <Keegan Weiner PA-C - Last Filed: 10/22/24 18:46> Labs: Lab Results 10/22/24 Range/Units 09:36 WBC 5.7 (4.5-10.0) K/mm3 RBC 4.71 (4.6-6.20) M/mm3 Hgb 12.6 L (14.0-18.0) g/dL Hct 39.3 L (42.0-52.0) % MCV 83.4 (80-100) fl MCH 26.8 (26-34) pg MCHC 32.1 (32-36) g/dl RDW 14.8 H (11.5-14.5) % Plt Count 192 (150-375) k/mm3 MPV 11.4 H (7.4-10.4) fl Immature Gran % (Auto) 0.2 (0-0.5) % Neut % (Auto) 82.3 H (45.5-73.1) % Lymph % (Auto) 9.3 L (18.3-44.2) % [place] % (Auto) 6.7 (2.6-8.5) % Eos % (Auto) 1.1 (0-4.4) % Baso % (Auto) 0.4 (0.2-1.2) % Lymph # (Auto) 0.53 L (0.9-3.2) K/mm3 [place] # (Auto) 0.4 (0.1-0.6) K/mm3 Eos # (Auto) 0.1 (0-0.3) K/mm3 Baso # (Auto) 0.0 (0.0-0.1) K/mm3 Abs Immat Gran (auto) 0.01 (0.00-0.031) K/mm3 Absolute Neuts (auto) 4.7 (1.3-6.7) K/mm3 Absolute Nucleated RBC 0.000 (0.0-0.012) K/mm3 Nucleated RBC % 0.0 (0.0-0.2) % PT 14.6 (11.1-14.7) Seconds INR 1.1 APTT 30.1 (22.3-36.8) Seconds Sodium 136 L (137-145) mmol/L Potassium 3.9 (3.4-5.0) mmol/L Chloride 107 (98-107) mmol/L Carbon Dioxide 29 (22-30) mmol/L Anion Gap 0 L (4-12) mmol/L BUN 15 (9-20) mg/dL Creatinine 0.90 (0.7-1.3) mg/dL Estim Creat Clear Calc 66 ml/min Estimated GFR > 60 (59 - ) Glucose 162 H (65-110) mg/dL Calcium 8.8 (8.4-10.2) mg/dL Total Bilirubin 0.7 (0.2-1.3) mg/dL AST 22 (17-59) U/L ALT 15 (6-50) U/L Alkaline Phosphatase 66 (38-126) U/L Troponin I < 0.012 (0.000-0.034) ng/mL Total Protein 6.0 L (6.3-8.2) g/dL Albumin 3.7 (3.5-5.1) g/dL <Keegan Weiner PA-C - Last Filed: 10/22/24 18:46> Lab Results 10/22/24 Range/Units 09:36 WBC 5.7 (4.5-10.0) K/mm3 RBC 4.71 (4.6-6.20) M/mm3 Hgb 12.6 L (14.0-18.0) g/dL Hct 39.3 L (42.0-52.0) % MCV 83.4 (80-100) fl MCH 26.8 (26-34) pg MCHC 32.1 (32-36) g/dl RDW 14.8 H (11.5-14.5) % Plt Count 192 (150-375) k/mm3 MPV 11.4 H (7.4-10.4) fl Immature Gran % (Auto) 0.2 (0-0.5) % Neut % (Auto) 82.3 H (45.5-73.1) % Lymph % (Auto) 9.3 L (18.3-44.2) % [place] % (Auto) 6.7 (2.6-8.5) % Eos % (Auto) 1.1 (0-4.4) % Baso % (Auto) 0.4 (0.2-1.2) % Lymph # (Auto) 0.53 L (0.9-3.2) K/mm3 [place] # (Auto) 0.4 (0.1-0.6) K/mm3 Eos # (Auto) 0.1 (0-0.3) K/mm3 Baso # (Auto) 0.0 (0.0-0.1) K/mm3 Abs Immat Gran (auto) 0.01 (0.00-0.031) K/mm3 Absolute Neuts (auto) 4.7 (1.3-6.7) K/mm3 Absolute Nucleated RBC 0.000 (0.0-0.012) K/mm3 Nucleated RBC % 0.0 (0.0-0.2) % PT 14.6 (11.1-14.7) Seconds INR 1.1 APTT 30.1 (22.3-36.8) Seconds Sodium 136 L (137-145) mmol/L Potassium 3.9 (3.4-5.0) mmol/L Chloride 107 (98-107) mmol/L Carbon Dioxide 29 (22-30) mmol/L Anion Gap 0 L (4-12) mmol/L BUN 15 (9-20) mg/dL Creatinine 0.90 (0.7-1.3) mg/dL Estim Creat Clear Calc 66 ml/min Estimated GFR > 60 (59 - ) Glucose 162 H (65-110) mg/dL Calcium 8.8 (8.4-10.2) mg/dL Total Bilirubin 0.7 (0.2-1.3) mg/dL AST 22 (17-59) U/L ALT 15 (6-50) U/L Alkaline Phosphatase 66 (38-126) U/L Troponin I < 0.012 (0.000-0.034) ng/mL Total Protein 6.0 L (6.3-8.2) g/dL Albumin 3.7 (3.5-5.1) g/dL <Danie Goel MD - Last Filed: 10/22/24 18:50> ECG Data EKG #1: ECG completion date: 10/22/24 <Keegan Weiner PA-C - Last Filed: 10/22/24 18:46> ECG completion time: 10:23 <Keegan Weiner PA-C - Last Filed: 10/22/24 18:46> Interpretation: sinus rhythm with first-degree AV block Rate 66 Right bundle-branch block No acute ST elevation <Keegan Weiner PA-C - Last Filed: 10/22/24 18:46> Discharge Plan Discharge Clinical Impression: Infarction of parietal lobe <Keegan Weiner PA-C - Last Filed: 10/22/24 18:46> Patient Disposition: Acute Care Hospital <Keegan Weiner PA-C - Last Filed: 10/22/24 18:46> Condition: Stable <Keegan Weiner PA-C - Last Filed: 10/22/24 18:46> Patient Language: Thai <Keegan Weiner PA-C - Last Filed: 10/22/24 18:46> Prescriptions: No Action aspirin 81 mg Tablet,Chewable 81 mg PO DAILY Xarelto 20 mg tablet 20 mg PO HS finasteride 5 mg tablet 5 mg PO DAILY lisinopril 40 mg tablet 40 mg PO DAILY amiodarone 100 mg tablet 100 mg PO DAILY methocarbamol 500 mg tablet 500 mg PO BID omeprazole 20 mg capsule,delayed release(DR/EC) 20 mg PO DAILY simvastatin 20 mg tablet 20 mg PO QPM melatonin 5 mg capsule 10 mg PO HS levetiracetam [Keppra XR] 750 mg tablet extended release 24 hr 750 mg PO .bedtime Qty: 42 0RF Rx Instructions: Take 1 tablet at bedtime for the first two weeks. Increase to 2 tablets at bedtime after 2 weeks. metformin 500 mg tablet 500 mg PO BID Qty: 180 1RF <Keegan Weiner PA-C - Last Filed: 10/22/24 18:46> Follow-up/Referrals: Oralia,Marcin Balderas MD [Primary Care Provider] - <Keegan Weiner PA-C - Last Filed: 10/22/24 18:46> Time of Disposition: 13:50 <Keegan Weiner PA-C - Last Filed: 10/22/24 18:46> 13:50 <Danie Goel MD - Last Filed: 10/22/24 18:50> Quality Stroke Scale Stroke Scale 1: Stroke scale date:: 10/22/24 <Keegan Weiner PA-C - Last Filed: 10/22/24 18:46> Stroke scale time:: 09:24 <Keegan Weiner PA-C - Last Filed: 10/22/24 18:46> 1a Level of consciousness: alert-0 <Keegan ADomenico Weiner PA-C - Last Filed: 10/22/24 18:46> 1b Level of consciousness questions: answers both correctly-0 <Keegan ADomenico Weiner PA-C - Last Filed: 10/22/24 18:46> 1c Level of consciousness commands: obeys both correctly-0 <Keegan ADomenico Weiner PA-C - Last Filed: 10/22/24 18:46> 2 Best gaze: normal-0 <Keegan ADomenico Weiner PA-C - Last Filed: 10/22/24 18:46> 3 Visual: no visual loss-0 <Keegan ADomenico Weiner PA-C - Last Filed: 10/22/24 18:46> 4 Facial palsy: normal-0 <Keegan ADomenico Weiner PA-C - Last Filed: 10/22/24 18:46> 5a Motor: left arm: no drift-0 <Keegan ADomenico Weiner PA-C - Last Filed: 10/22/24 18:46> 5b Motor: right arm: no drift-0 <Keegan ADomenico Weiner PA-C - Last Filed: 10/22/24 18:46> 6a Motor: left leg: no drift-0 <Keegan ADomenico Weiner PA-C - Last Filed: 10/22/24 18:46> 6b Motor: right leg: no drift-0 <Keegan ADomenico Weiner PA-C - Last Filed: 10/22/24 18:46> 7 Limb ataxia: present in one limb-1 <Keegan Weiner PA-C - Last Filed: 10/22/24 18:46> 8 Sensory: normal-0 <Keegan ADomenico Weiner PA-C - Last Filed: 10/22/24 18:46> 9 Best language: no aphasia-0 <Keegan Weiner PA-C - Last Filed: 10/22/24 18:46> 10 Dysarthria: normal-0 <Keegan ADomenico Weiner PA-C - Last Filed: 10/22/24 18:46> 11 Extinction and inattention: no abnormality-0 <Keegan Weiner PA-C - Last Filed: 10/22/24 18:46> Level:: 1 <Keegan Weiner PA-C - Last Filed: 10/22/24 18:46> 1 <Danie Goel MD - Last Filed: 10/22/24 18:50>
[2024-10-22 09:48] LABS: Basophils Percent Auto 0.4 % (0.2-1.2); Eosinophils Absolute Auto 0.1 K/mm3 (0-0.3); Eosinophils Percent Auto 1.1 % (0-4.4); Hematocrit 39.3 % (42.0-52.0); Hemoglobin 12.6 g/dL (14.0-18.0); Immature Granulocyte Absolute 0.01 K/mm3 (0.00-0.031); Immature Granulocyte Percent A 0.2 % (0-0.5); Lymphocytes Absolute Auto 0.53 K/mm3 (0.9-3.2); Lymphocytes Percent Auto 9.3 % (18.3-44.2); Mean Corpuscular HGB Conc 32.1 g/dl (32-36); Mean Corpuscular Hemoglobin 26.8 pg (26-34); Mean Corpuscular Volume 83.4 fl (80-100); Mean Platelet Volume 11.4 fl (7.4-10.4); Monocytes Absolute Auto 0.4 K/mm3 (0.1-0.6); Monocytes Percent Auto 6.7 % (2.6-8.5); Neutrophils Absolute Auto 4.7 K/mm3 (1.3-6.7); Neutrophils Percent Auto 82.3 % (45.5-73.1); Platelet Count Result 192 k/mm3 (150-375); Red Blood Count 4.71 M/mm3 (4.6-6.20); Red Cell Distribution Width 14.8 % (11.5-14.5); White Blood Count 5.7 K/mm3 (4.5-10.0)
[2024-10-22 09:57] LABS: Alanine Aminotransferase 15 U/L (6-50); Albumin Level 3.7 g/dL (3.5-5.1); Alkaline Phosphatase 66 U/L (38-126); Anion Gap 0 mmol/L (4-12); Aspartate Amino Transferase 22 U/L (17-59); Bilirubin,Total 0.7 mg/dL (0.2-1.3); Blood Urea Nitrogen 15 mg/dL (9-20); Calcium 8.8 mg/dL (8.4-10.2); Carbon Dioxide 29 mmol/L (22-30); Chloride 107 mmol/L (98-107); Estimated CRCL calculation 66 ml/min; Estimated Glomerular Filt Rate > 60; Glucose 162 mg/dL (65-110); Potassium 3.9 mmol/L (3.4-5.0); Sodium 136 mmol/L (137-145)
[2024-10-22 09:58] LABS: INR 1.1; Prothrombin Time 14.6 Seconds (11.1-14.7)
[2024-10-22 10:00] LABS: Partial Thromboplastin Time 30.1 Seconds (22.3-36.8)
[2024-10-22] MEDS: levETIRAcetam 1500MG/NACL100ML 1,500 MG/100 ML BAG 400 MG IVPB (10:04)
[2024-10-22 10:09] LABS: Troponin I < 0.012 ng/mL (0.000-0.034)
[2024-10-22] MEDS: LORazepam INJ (*CRX) 2 MG/ML VIAL 1 MG IV PUSH (11:32)
--- NOTE | 2024-10-22 11:46 | PC.NURSE ---
to MRI at this time
--- NOTE | 2024-10-22 20:25 | PC.NURSE ---
EMS is here to take patient to [facility].
== END 2024-10-22 21:18 | disposition short-term general hospital (02) ==
PROVIDERS: Emergency Provider Physician Assistant; PCP Family Medicine
DX: I63.9 Cerebral infarction, unspecified (principal); R29.701 NIHSS score 1; M62.838 Other muscle spasm; I25.10 Atherosclerotic heart disease of native coronary artery without angina pectoris; I48.91 Unspecified atrial fibrillation; G47.33 Obstructive sleep apnea (adult) (pediatric); Z79.01 Long term (current) use of anticoagulants; E11.9 Type 2 diabetes mellitus without complications; I10 Essential (primary) hypertension; E78.2 Mixed hyperlipidemia; I48.0 Paroxysmal atrial fibrillation; Z99.89 Dependence on other enabling machines and devices; Z87.891 Personal history of nicotine dependence
CPT/HCPCS: 36415; 70496; 70498; 70551; 71045; 80053; 84484; 85025; 85610; 85730; 93005; 96374; 96375; 99285; J1953; J2060; Q9967